=== PATIENT | female | born 1960 | race Caucasian/White ===

== ENCOUNTER 2016-09-17 01:51 | Emergency (ER) | payer BC ==
[~2016-09-17] VITALS: Ht 177.8 cm; Wt 153.9 kg
[~2016-09-17 01:51] MED LIST: BUME0.5T3 PO; BUPR-102 PO; LEVO200T PO; LOSA1TAB38 PO; OMEP20CA59 PO
[2016-09-17 01:54] VITALS: TEMP 36.7; O2SAT 94; Ht 177.8 cm; Wt 153.9 kg
[2016-09-17 02:57] LABS: BASO % 0.2 %; BASO ABS # 0.02 K/uL (0-0.2); COMPLETE YES; EOS % 4.4 %; HEMATOCRIT 37.8 % (37-47); IG% 0.7 %; LYMPH ABS # 2.84 K/uL (1.2-3.4); MEAN CELL VOLUME 89.6 fL (80-100); MEAN CORPUSCULAR HEMOGLOBIN 30.8 pg (25-34); MEAN CORPUSCULAR HGB CONC 34.4 g/dl (32-36); MEAN PLATELET VOLUME 9.6 fL (7.4-10.4); MONO % 8.3 %; NEUT % 55.4 %; PLATELET COUNT 302 K/uL (130-400); RED BLOOD COUNT 4.22 M/uL (4.2-5.4); WHITE BLOOD COUNT 9.17 K/uL (4.8-10.8)
[2016-09-17 03:08] VITALS: O2SAT 94
[2016-09-17 03:09] LABS: PROTHROMBIN TIME (PATIENT) 10.5 SECONDS (9.0-12.0)
[2016-09-17 03:19] LABS: ALT/SGPT 28 U/L (12-78); AST/SGOT 18 U/L (15-37); BLOOD UREA NITROGEN 10 mg/dl (7-18); BUN/CREATININE RATIO 12.5 (10-20); CARBON DIOXIDE 32 mmol/L (21-32); CHLORIDE 103 mmol/L (98-107); CREATININE 0.82 mg/dl (0.60-1.20); GLUCOSE 136 mg/dl (70-99); MAGNESIUM 1.8 mg/dl (1.8-2.4); POTASSIUM 3.7 mmol/L (3.5-5.1); SODIUM 141 mmol/L (136-145)
[2016-09-17 03:25] LABS: ALB/GLOB RATIO 0.8 (0.9-2); ALKALINE PHOSPHATASE 92 U/L (45-117); CKMB/CK RATIO 1.2 (0-3.0)
[2016-09-17] MEDS ORDERED: SODIUM CHLORIDE 0.9% 500ML 500 ML IV STA (03:26)
[2016-09-17] MEDS ORDERED: OPTIRAY 320 IV PRN (03:45)
[2016-09-17] MEDS ORDERED: LEVO25TA5 PO (03:46)
[2016-09-17] MEDS ORDERED: GLC/500 PO (03:47)
[2016-09-17] MEDS ORDERED: VALS1TAB33 PO (03:48)
[2016-09-17] MEDS ORDERED: ERGO500037 PO (03:49)
[2016-09-17 04:51] VITALS: PULSE 78
[2016-09-17] MEDS ORDERED: ALBUT/IPRATROP 3MG/0.5MG NEB 3 ML VIAL INH STA (05:11)
[2016-09-17] MEDS ORDERED: AZITHROMYCIN 250 MG TAB PO ONE (05:15)
[2016-09-17] MEDS ORDERED: DEXAMETHASONE SOD INJ 10 MG/ML VIAL IV ONE (05:15)
[2016-09-17] MEDS ORDERED: PRED50TA PO (05:26)
[2016-09-17] MEDS ORDERED: AZIT-57 PO (05:26)
[2016-09-17] MEDS ORDERED: ALBUTEROL HFA 8 GM INHALER INH STA (05:28)
--- NOTE | 2016-09-17 05:28 | EMERGENCY ROOM VISIT NOTE ---
History First contact with patient: 02:15 Chief Complaint: CHEST PAIN Stated Complaint: CHEST CONGESTION,PAIN INTO BACK Nursing Triage Summary: This chest pain woke me up. My ankles are very swollen. Upper abdomen feels solid/swollen History of Present Illness The patient is a 56 year old female who presents to the Emergency Department by private vehicle for evaluation of her chest congestion as well as back pain and tightness to the RIGHT-sided chest. She reports that she was awoken tonight with occasional pain to the right-sided chest. She reports the pain is worse with deep inspiration. She is been congested for the past 2 weeks. She's been nasally congested as well. Tonight, she reports that when the pain initially onset, she noticed pain to the chest along. She now reports pain radiating to the back. She reports a history of hypertension, hypothyroidism, GERD, and diabetes. She denies any LEFT-sided chest pain, palpitations, or hemoptysis. She rates her current discomfort as a 3/10. She is tried nothing over-the- counter for her symptoms. Patient denies any fevers, chills, nausea, vomiting, abdominal pain, hematochezia, melena, hematuria, or dysuria. She denies any recent long-distance travel. She denies a smoking history. No family history of blood clots or bleeding disorders. Review of Systems A complete 10-point Review of Systems was discussed with the patient, with pertinent positives and negatives listed in the History of Present Illness. All remaining Review of Systems questions can be considered negative unless otherwise specified. Past Medical/Surgical History Medical Problems: (1) Diabetes mellitus type 2 (2) DIAPHRAGMATIC HERNIA (3) GOITER NOS (4) HYPERTENSION NOS (5) HYPOTHYROIDISM NOS (6) OBESITY, NOS (7) UNSPECIFIED SLEEP APNEA Social History Smoking Status: Never Smoker Smokeless Tobacco Use: No Drug Use: none Marital Status: Housing Status: lives with family Current/Historical Medications Scheduled Azithromycin (Azithromycin), 1 TAB PO DAILY Ergocalciferol (Vitamin D 36189 Unit), 50,000 UNIT PO WK Levothyroxine Sodium (Synthroid), 200 MCG PO DAILY Levothyroxine Sodium (Levothyroxine Sodium), 25 MCG PO DAILY Metformin Hcl (Glucophage), 1,000 MG PO DAILY Omeprazole (Prilosec), 20 MG PO DAILY Prednisone (Prednisone), 50 MG PO DAILY Valsartan/Hctz (Valsartan/Hydrochlorothia), 1 TAB PO QPM Allergies Coded Allergies: Molds & Smuts (Verified Allergy, Unknown, ., 09/17/16) [place] (Verified Allergy, Unknown, ., 09/17/16) Shrimp (Verified Allergy, Unknown, ., 09/17/16) Sulfa Drugs (Unverified Allergy, Unknown, HIVES, 09/17/16) Tomato (Verified Allergy, Unknown, ., 09/17/16) Magnesium Sulfate (Unverified Adverse Reaction, Severe, BREATHING DIFFICULTY, HIVES, 09/17/16) Physical Exam Vital Signs Date Time Temp Pulse Resp B/P Pulse Ox O2 Delivery O2 Flow Rate FiO2 09/17/16 05:42 174/80 09/17/16 04:51 78 12 09/17/16 04:21 77 16 09/17/16 04:01 161/80 09/17/16 03:21 76 17 09/17/16 03:08 94 Room Air 09/17/16 02:51 84 10 09/17/16 02:21 83 20 09/17/16 02:18 82 09/17/16 02:17 170/84 09/17/16 02:12 Room Air 09/17/16 01:54 36.7 83 20 178/97 94 Room Air Pain Rating (0-10): 3 Physical Exam VITAL SIGNS - Vital signs and nursing notes were reviewed. GENERAL - 56-year-old female appearing her stated age who is in no acute distress. Communicates well with provider and answers questions appropriately. HEAD - NC/AT. EYES - PERRL with EOMI bilaterally. Sclera anicteric. Palpebral conjunctiva pink and moist with no injection noted. EARS - No deformities of external structures noted on gross examination bilaterally. No pain elicited with palpation of the tragus bilaterally. External auditory canals without discharge or otorrhea. Tympanic membranes pearly rodriguez without retraction or bulging. NOSE - Midline and without cyanosis. No epistaxis or purulent drainage noted. Septum midline without deviation or septal hematoma noted. MOUTH/OROPHARYNX - Without perioral cyanosis. Buccal mucosa pink and moist and without leukoplakia. Tongue midline with equal elevation of palate bilaterally. No tonsillar hypertrophy, erythema, or exudates noted. Good dentition noted. NECK - Neck with FROM. Supple to palpation. LUNGS - Chest wall symmetric without accessory muscle use, intercostals retractions, or central cyanosis. Normal vesicular breath sounds CTA B/L. No wheezes, rales, or rhonchi appreciated. CARDIAC - RRR with S1/S2. No murmur, rubs, or gallops appreciated. No reproducible tenderness to palpation appreciated over the anterior chest wall. ABDOMEN - Abdominal contour obese and without pulsations or visible masses. BS normoactive all four quadrants. No tenderness, palpable masses, hepatosplenomegaly, or ascites noted. EXTREMITIES - No clubbing or peripheral cyanosis. Bilateral pretibial edema present. +3/5 radial and dorsalis pedis pulses palpated throughout. +5/5 strength noted in UE/LE bilaterally. NEUROLOGIC - Cranial nerves II through XII grossly intact. Sensory intact to light touch throughout. PSYCH - A&Ox3 and cooperates fully with examiner. Pt is very pleasant and interacts well with examiner. Medical Decision & Procedures ER Provider Diagnostic Interpretation: X-ray of the chest was obtained and reviewed by myself. No focal areas of consolidation or acute cardiopulmonary processes appreciated per my interpretation. Radiologist's impression unavailable at the time of dictation. Radiological imaging and reports were reviewed by myself. Radiologist's Interpretation per [facility] as follows: CTA CHEST: Compared to 02/06/13. No evidence of pulmonary embolism or aortic dissection. Peribronchial thickening with possible mucous plugging more prominent in the lower lobes. Patchy groundglass densities with mosaic attenuation in the bilateral lungs, can be seen with air trapping or other etiologies. No pneumothorax or pleural effusion Fatty liver. Laboratory Results 09/17/16 02:30 Red Blood Count 4.22, Mean Corpuscular Volume 89.6, Mean Corpuscular Hemoglobin 30.8, Mean Corpuscular Hemoglobin Concent 34.4, Mean Platelet Volume 9.6, Neutrophils (%) (Auto) 55.4, Lymphocytes (%) (Auto) 31.0, Monocytes (%) (Auto) 8.3, Eosinophils (%) (Auto) 4.4, Basophils (%) (Auto) 0.2, Neutrophils # (Auto) 5.09, Lymphocytes # (Auto) 2.84, Monocytes # (Auto) 0.76, Eosinophils # (Auto) 0.40, Basophils # (Auto) 0.02 09/17/16 02:30 Test 09/17/16 02:30 09/17/16 02:56 White Blood Count 9.17 K/uL (4.8-10.8) Red Blood Count 4.22 M/uL (4.2-5.4) Hemoglobin 13.0 g/dL (12.0-16.0) Hematocrit 37.8 % (37-47) Mean Corpuscular Volume 89.6 fL (80-100) Mean Corpuscular Hemoglobin 30.8 pg (25-34) Mean Corpuscular Hemoglobin Concent 34.4 g/dl (32-36) Platelet Count 302 K/uL (130-400) Mean Platelet Volume 9.6 fL (7.4-10.4) Neutrophils (%) (Auto) 55.4 % Lymphocytes (%) (Auto) 31.0 % Monocytes (%) (Auto) 8.3 % Eosinophils (%) (Auto) 4.4 % Basophils (%) (Auto) 0.2 % Neutrophils # (Auto) 5.09 K/uL (1.4-6.5) Lymphocytes # (Auto) 2.84 K/uL (1.2-3.4) Monocytes # (Auto) 0.76 K/uL (0.11-0.59) Eosinophils # (Auto) 0.40 K/uL (0-0.5) Basophils # (Auto) 0.02 K/uL (0-0.2) RDW Standard Deviation 43.5 fL (36.4-46.3) RDW Coefficient of Variation 13.4 % (11.5-14.5) Immature Granulocyte % (Auto) 0.7 % Immature Granulocyte # (Auto) 0.06 K/uL (0.00-0.02) Prothrombin Time 10.5 SECONDS (9.0-12.0) Prothromb Time International Ratio 1.0 (0.9-1.1) Activated Partial Thromboplast Time 27.1 SECONDS (21.0-31.0) Partial Thromboplastin Ratio 1.0 Anion Gap 6.0 mmol/L (3-11) Est Creatinine Clear Calc Drug Dose 121.2 ml/min Estimated GFR () 91.4 Estimated GFR (Non- 78.9 BUN/Creatinine Ratio 12.5 (10-20) Calcium Level 9.0 mg/dl (8.5-10.1) Magnesium Level 1.8 mg/dl (1.8-2.4) Total Bilirubin 0.3 mg/dl (0.2-1) Aspartate Amino Transf (AST/SGOT) 18 U/L (15-37) Alanine Aminotransferase (ALT/SGPT) 28 U/L (12-78) Alkaline Phosphatase 92 U/L (45-117) Total Creatine Kinase 67 U/L (26-192) Creatine Kinase MB 0.8 ng/ml (0.5-3.6) Creatine Kinase MB Ratio 1.2 (0-3.0) Troponin I < 0.015 ng/ml (0-0.045) Total Protein 7.6 gm/dl (6.4-8.2) Albumin 3.3 gm/dl (3.4-5.0) Globulin 4.3 gm/dl (2.5-4.0) Albumin/Globulin Ratio 0.8 (0.9-2) Lipase 155 U/L (73-393) Bedside D-Dimer > 450 ng/mlFEU (0-450) Bedside Troponin I 0.000 ng/ml (0-0.045) Medications Administered Medications (Trade) Dose Ordered Sig/Shirley Route Start Time Stop Time Status Last Admin Dose Admin Sodium Chloride (Nss 500ml) 500 ml @ 999 mls/hr Q31M STAT IV 09/17/16 03:26 09/17/16 03:56 DC 09/17/16 03:26 999 MLS/HR Dexamethasone Sodium Phosphate (Decadron Inj) 10 mg NOW ONCE IV 09/17/16 05:15 09/17/16 05:16 DC 09/17/16 05:26 10 MG Albuterol/ Ipratropium (Duoneb) 3 ml NOW STAT INH 09/17/16 05:11 09/17/16 05:13 DC 09/17/16 05:26 3 ML Azithromycin (Zithromax Tab) 500 mg NOW ONCE PO 09/17/16 05:15 09/17/16 05:16 DC 09/17/16 05:26 500 MG Albuterol (Ventolin Hfa Inhaler) 2 puffs ONE STAT INH 09/17/16 05:28 09/17/16 05:29 DC 09/17/16 05:43 2 PUFFS Procedure Patient was placed on the panel monitor and monitored throughout the entire extent of their stay. In addition, the patient's pulse oximetry was monitored throughout the entire stay. Any abnormalities or aberrancies were addressed appropriately. ECG Indication: chest pain, SOB/dyspnea Rate (beats per minute): 85 Rhythm: normal sinus Findings: no acute ischemic change, no ectopy Change: no significant change (from 02/05/2013.) ED Course Patient was seen and evaluated by myself. Labs were drawn, saline lock in place. EKG and chest x-rays were obtained. Laboratory results demonstrate no acute leukocytosis, worrisome anemia, or bandemia. The patient has no significant electrolyte abnormalities. Cardiac enzymes are not elevated. Troponin was negative. D-dimer was found to be elevated. Laboratory results and imaging studies to this point were reviewed with the patient. She was hydrated with a 500 mL normal saline bolus and a CTA of the chest was ordered. Imaging results as above. Imaging results were reviewed the patient who acknowledges understanding. She was provided 10 mg Decadron intravenously. She was provided a breathing treatment as well as initial dose of azithromycin orally. The patient was instructed to follow-up with her primary care provider on Wednesday at the latest for recheck. She was educated on worrisome symptoms for return visit to the emergency department. Patient discharged home afebrile and in good condition. Medical Decision Given the patient's presentation and stated complaints, I did elect to perform the above-mentioned workup. The patient presents today with right-sided chest pain which appears pruritic in nature. She has no fever. Her symptoms are not left-sided were exertional. Her EKG is unremarkable. Labs demonstrate no acute findings. Cardiac enzymes are negative. EKG is unchanged. CTA demonstrates mucous plugging as well as some air trapping. Patient's symptoms are likely related to these findings. She was treated with albuterol treatment. She was provided an albuterol inhaler for home. She will be placed on prednisone as well as azithromycin. She'll follow-up with her primary care provider or return to the emergency department in the setting of any changing or worsening symptoms. Patient discharged home afebrile and in good condition. In the evaluation and treatment of this patient, the following differential diagnoses were considered: ND, ASC, Dysrhythmia, Angina, Mediastinitis, GERD, Esophagitis, PE, Pneumonia, Bronchitis, Costochondritis, Rib Fracture, Zoster. Impression Primary Impression: Pleuritic chest pain Additional Impression: Acute bronchitis Departure Information Dispostion Home / Self-Care Condition GOOD Prescriptions Azithromycin (Azithromycin) 250 Mg Tab 1 TAB PO DAILY for 4 Days, #4 TAB Prov: Pio Archuleta PA-C 09/17/16 Prednisone (Prednisone) 50 Mg Tab 50 MG PO DAILY for 4 Days, #4 TAB Prov: Pio Archuleta PA-C 09/17/16 Referrals Pro,Jose Castro M.D. (PCP) Patient Instructions Bronchitis Acute, [facility] Additional Instructions You have been seen in the emergency department today for your bronchitis and RIGHT-sided chest discomfort. You were prescribed Azithromycin to be taken as prescribed. This is an antibiotic. All antibiotics have the potential to cause diarrhea. Stop this medication and contact a medical provider if you were to develop any significant adverse side effects including: wheezing, shortness of breath, passing out, vomiting, or a diffuse rash. Always take antibiotics as directed and COMPLETE the ENTIRE course regardless of the improvement of your symptoms. Please use your albuterol inhaler 2 puffs every 4-6 hours for the next 3-4 days and then as needed for cough. You have been prescribed Prednisone 50 mg to be taken orally once a day for the next 4 days. This is an anti-inflammatory medicine to be used to help minimize your symptoms. You should take the COMPLETE course of the medication. For pain control, you can use the following [id number] medicines (if >12 yo): - Regular strength (325mg/tab) Tylenol (acetaminophen) 2 tabs every 4-6 hours as needed. Do not exceed 12 tablets in a 24 hour period. Avoid taking more than 4 grams (4000 mg) of Tylenol per day. This includes any other sources of acetaminophen you may take on a regular basis. - Regular strength (200 mg/tab) Advil (ibuprofen) 1-2 tabs every 4-6 hours as needed. Do not exceed a dose of 3200 mg per day. Please follow-up with your primary care provider on Wednesday at the latest. Return for any changing or worsening symptoms. Problem Qualifiers Additional Impression: Acute bronchitis Bronchitis organism: unspecified organism Qualified Codes: J20.9 - Acute bronchitis, unspecified
[2016-09-17 05:42] VITALS: BP 174/80
--- NOTE | 2016-09-17 08:31 | DIAGNOSTIC IMAGING REPORT ---
CT ANGIOGRAM OF THE CHEST CLINICAL HISTORY: Atypical chest pain. COMPARISON STUDY: Chest CT dated 02/06/2013. Chest x-ray dated 09/17/2016. TECHNIQUE: Following the IV administration of 113 cc of Optiray 320, CT angiogram of the chest was performed from the upper abdomen to the thoracic inlet utilizing the pulmonary embolus protocol. Images are reviewed in the axial, sagittal, and coronal planes. 3-D MIPS images are created and assessed. IV contrast was administered without complication. The examination is degraded by large body habitus, and by streak artifact from the body wall abutting the CT gantry. CT DOSE: 834.66 mGy.cm FINDINGS: Thyroid: Mildly enlarged and heterogeneous. Thoracic aorta: The thoracic aorta is normal in caliber and demonstrates bovine variant arch anatomy. No dissection is seen. Pulmonary vasculature: The pulmonary trunk is dilated, measuring 3.3 cm in transverse diameter. This suggests pulmonary artery hypertension. There are no central filling defects identified in main, lobar, or proximal segmental pulmonary branches to suggest pulmonary embolus. Evaluation of the peripheral vessels is degraded by suboptimal contrast opacification. Heart: The heart is enlarged and without pericardial effusion. Lungs and pleural spaces: Dependent atelectasis and air trapping are identified at the lung bases. No airspace consolidation is seen typical for pneumonia. There is no pleural effusion. The trachea and central airways are clear. Mediastinum: There is no mediastinal lymphadenopathy. Sindhu: Clear. Axillae: There is no axillary lymphadenopathy. Upper abdomen: The liver is steatotic. A small hiatal hernia is noted. Skeletal structures: The skeletal structures are osteopenic. Degenerative changes noted throughout the thoracic spine. No lytic or blastic bony lesions are seen. IMPRESSION: 1. There is no evidence of central pulmonary embolus in the main, lobar, or proximal segmental pulmonary arteries. 2. There is no airspace consolidation or pleural effusion. 3. Cardiomegaly with evidence of pulmonary artery hypertension. 4. Hepatic steatosis. 5. Additional findings as above. Electronically signed by: Levon Pinto M.D. 09/17/2016 8:29 AM Dictated Date/Time: 09/17/2016 8:23 AM
--- NOTE | 2016-09-17 08:35 | DIAGNOSTIC IMAGING REPORT ---
CHEST ONE VIEW PORTABLE HISTORY: Atypical chest pain. COMPARISON: Chest 02/05/2013. FINDINGS: Low lung volumes. The heart is mildly enlarged. Mild central pulmonary vascular congestion without overt edema. No pleural effusions. No pneumothorax. No focal lung consolidations to suggest pneumonia. IMPRESSION: Cardiomegaly with mild central pulmonary vascular congestion. Electronically signed by: Du Stewart M.D. 09/17/2016 8:33 AM Dictated Date/Time: 09/17/2016 8:33 AM
== END 2016-09-17 05:55 | disposition home or self-care (01) ==
LOC: C.EDB 01:52
DX: R07.89 Other chest pain (principal); J20.9 Acute bronchitis, unspecified; M54.9 Dorsalgia, unspecified; I10 Essential (primary) hypertension; E03.9 Hypothyroidism, unspecified; E11.9 Type 2 diabetes mellitus without complications; K21.9 Gastro-esophageal reflux disease without esophagitis; G47.30 Sleep apnea, unspecified; Z79.899 Other long term (current) drug therapy

== ENCOUNTER → 2017-02-10 | Outpatient (CLI) | payer BC ==
[~2017-02-10] MED LIST changes: -BUME0.5T3 PO; -BUPR-102 PO; +ERGO500037 PO; +GLC/500 PO; +LEVO25TA5 PO; -LOSA1TAB38 PO; +VALS1TAB33 PO; +ZTHM250 PO
--- NOTE | 2017-02-10 13:49 | MAMMOGRAPHY REPORT ---
BILATERAL DIGITAL SCREENING MAMMOGRAM TOMOSYNTHESIS WITH CAD: 02/10/2017 CLINICAL HISTORY: Routine screening. Patient has no complaints. TECHNIQUE: Breast tomosynthesis in addition to standard 2D mammography was performed. Current study was also evaluated with a Computer Aided Detection (CAD) system. COMPARISON: Comparison is made to exams dated: 02/06/2016 mammogram, 09/10/2014 mammogram, 03/03/2013 [facility] mogram, 03/02/2012 mammogram, 02/27/2011 mammogram, and 02/26/2010 mammogram - [facility]. BREAST COMPOSITION: The tissue of both breasts is almost entirely fatty. FINDINGS: No suspicious masses, calcifications, or areas of architectural distortion are noted in ei ther breast. There has been no significant interval change compared to prior exams. IMPRESSION: ACR BI-RADS CATEGORY 1: NEGATIVE There is no mammographic evidence of malignancy. A 1 year screening mammogram is recommended. The pa tient will receive written notification of the results. Approximately 10% of breast cancers are not detected with mammography. A negative mammographic report should not delay biopsy if a clinically suggestive mass is present. Elizabeth Storm M.D. /:02/10/2017 07:51:05 Show Host: Keyonna TURKR, M, [facility] letter sent: Normal 1/2 BI-RADS Code: ACR BI-RADS Category 1: Negative
== END | disposition home or self-care (01) ==
LOC: C.MAMM 07:24
PROVIDERS: ATTEND Internal Medicine
DX: Z12.31 Encounter for screening mammogram for malignant neoplasm of breast (principal)

== ENCOUNTER → 2017-03-01 | Outpatient (CLI) | payer BC ==
[2017-03-01 12:10] LABS: BASO % 0.2 %; BASO ABS # 0.02 K/uL (0-0.2); COMPLETE YES; EOS % 4.8 %; HEMATOCRIT 43.7 % (37-47); IG% 0.6 %; LYMPH % 30.1 %; LYMPH ABS # 2.73 K/uL (1.2-3.4); MEAN CELL VOLUME 94.6 fL (80-100); MEAN CORPUSCULAR HGB CONC 30.7 g/dl (32-36); MEAN PLATELET VOLUME 10.7 fL (7.4-10.4); MONO % 6.8 %; NEUT % 57.5 %; PLATELET COUNT 347 K/uL (130-400); RED BLOOD COUNT 4.62 M/uL (4.2-5.4); WHITE BLOOD COUNT 9.08 K/uL (4.8-10.8)
[2017-03-01 12:17] LABS: ALT/SGPT 24 U/L (12-78); BLOOD UREA NITROGEN 11 mg/dl (7-18); BUN/CREATININE RATIO 11.3 (10-20); CALCIUM 9.4 mg/dl (8.5-10.1); CARBON DIOXIDE 30 mmol/L (21-32); CHLORIDE 102 mmol/L (98-107); CHOLESTEROL 150 mg/dl (0-200); CREATININE 0.94 mg/dl (0.60-1.20); GLUCOSE 153 mg/dl (70-99); POTASSIUM 3.8 mmol/L (3.5-5.1); SODIUM 139 mmol/L (136-145); TRIGLYCERIDES 123 mg/dl (0-150); VERY LOW DENSITY LIPOPROT CALC 25 mg/dl
[2017-03-01 12:20] LABS: ALB/GLOB RATIO 0.8 (0.9-2); ALKALINE PHOSPHATASE 83 U/L (45-117); AST/SGOT 16 U/L (15-37); CHOLESTEROL/HDL RATIO 2.7; HDL CHOLESTEROL 56 mg/dl; LDL CHOLESTEROL CALCULATED 69 mg/dl
[2017-03-01 12:42] LABS: ESTIMATED AVERAGE GLUCOSE 166 mg/dl; HA1C FLAG Normal (Normal)
== END | disposition home or self-care (01) ==
LOC: C.LABPBG 07:54
PROVIDERS: ATTEND Physician Assistant
DX: Z00.00 Encounter for general adult medical examination without abnormal findings (principal); I10 Essential (primary) hypertension; R60.0 Localized edema

== ENCOUNTER 2017-05-04 16:05 | Emergency (ER) | payer BC ==
[~2017-05-04] VITALS: Ht 177.8 cm; Wt 151.0 kg
[~2017-05-04 16:05] MED LIST changes: +AZIT-57 PO; -ZTHM250 PO
[2017-05-04 16:07] VITALS: TEMP 37; Ht 177.8 cm; Wt 151.0 kg
--- NOTE | 2017-05-04 16:27 | EMERGENCY ROOM VISIT NOTE ---
History Report prepared by [place]: Marian Springer Under the Supervision of: Dr. Levon Gant M.D. First contact with patient: 16:10 Chief Complaint: FLANK PAIN Stated Complaint: EXTREME PAIN IN SIDE, BACK AND LOWER ABD History of Present Illness The patient is a 56 year old female who presents to the Emergency Room with complaints of persistent right flank pain starting today. Two nights ago, she noticed that she had some pain in her right lower side after urinating. Today, the pain is in her right flank, wrapping around her side to the front and into her groin. She currently rates her discomfort as a 10/10 in severity. She has been taking Tylenol to no significant relief. The pain does not worsen with eating. She has never had this pain before. She has been having urinary frequency. She is also having more frequent bowel movements that are looser than normal. She denies any fever, nausea, or vomiting. She denies any trauma or injury. She has a history of appendectomy and C section. She denies any history of kidney stone or kidney infection. She notes that she has had a sore throat for over 1 week--no sore throat today. She was on antibiotics for a tooth abscess recently. Source of History: patient Onset: today Position: other (right flank) Symptom Intensity: 10/10 Quality: other (pain) Timing: other (persistent) Associated Symptoms: + sorethroat, + diarrhea, + urinary symptoms, No fevers , No nausea, No vomiting Review of Systems See HPI for pertinent positives & negatives. A total of 10 systems reviewed and were otherwise negative. Past Medical & Surgical Medical Problems: (1) Diabetes mellitus type 2 (2) DIAPHRAGMATIC HERNIA (3) GOITER NOS (4) HYPERTENSION NOS (5) HYPOTHYROIDISM NOS (6) OBESITY, NOS (7) UNSPECIFIED SLEEP APNEA Family History No pertinent family history stated. Social History Smoking Status: Never Smoker Drug Use: none Marital Status: Housing Status: lives with family Current/Historical Medications Scheduled Azithromycin (Azithromycin), 1 TAB PO DAILY Cefdinir (Omnicef), 300 MG PO Q12H Ergocalciferol (Vitamin D 16954 Unit), 50,000 UNIT PO WK Levothyroxine Sodium (Synthroid), 200 MCG PO DAILY Levothyroxine Sodium (Levothyroxine Sodium), 25 MCG PO DAILY Metformin Hcl (Glucophage), 1,000 MG PO DAILY Omeprazole (Prilosec), 20 MG PO DAILY Valsartan/Hctz (Valsartan/Hydrochlorothia), 1 TAB PO QPM Allergies Coded Allergies: Molds & Smuts (Verified Allergy, Unknown, ., 09/17/16) [place] (Verified Allergy, Unknown, ., 09/17/16) Shrimp (Verified Allergy, Unknown, ., 09/17/16) Sulfa Drugs (Unverified Allergy, Unknown, HIVES, 09/17/16) Tomato (Verified Allergy, Unknown, ., 09/17/16) Magnesium Sulfate (Unverified Adverse Reaction, Severe, BREATHING DIFFICULTY, HIVES, 09/17/16) Physical Exam Vital Signs Date Time Temp Pulse Resp B/P (MAP) Pulse Ox O2 Delivery O2 Flow Rate FiO2 05/04/17 17:50 81 142/73 96 05/04/17 16:07 37.0 86 18 210/97 96 Room Air Physical Exam GENERAL: Patient is in no acute distress. HEENT: No acute trauma, normocephalic atraumatic, mucous membranes moist, no nasal congestion, no scleral icterus. No throat erythema. NECK: No stridor, no adenopathy, no meningismus, trachea is midline. LUNGS: Clear to auscultation bilaterally, no wheeze, no rhonchi, breath sounds equal. HEART: Without murmurs gallops or rubs, regular rate and rhythm. ABDOMEN: Soft, tender along the entire right side, bowel sounds positive, no hernias, no peritonitis. BACK: Mild right flank discomfort with percussion. EXTREMITIES: No cyanosis or edema, full range of motion of all the joints without pain or difficulty, no signs for acute trauma. NEUROLOGIC: Oriented x 3, no acute motor or sensory deficits, no focal weakness. SKIN: No rash, no jaundice, no diaphoresis. Medical Decision & Procedures ER Provider Diagnostic Interpretation: Radiology results as stated below per my review and radiologist interpretation: ABD/PELVIS WITHOUT FOR STONE CLINICAL HISTORY: 56 years-old Female presenting with EVALUATE FLANK PAIN/HEMATURIA. TECHNIQUE: Multidetector CT of the abdomen and pelvis was performed without the use of intravenous contrast. IV contrast: None. A dose lowering technique was used consistent with the principles of ALARA (as low as reasonably achievable). COMPARISON: 12/27/2011. CT DOSE (mGy.cm): The estimated cumulative dose is 1732.02 mGy.cm. FINDINGS: [employer] Manager topogram: Unremarkable. Lung bases: Mosaic attenuation at the lung bases could suggest small airways disease. Minimal dependent changes likely atelectasis. Normal heart size. No pericardial or pleural effusion. Liver: Normal morphology. Density consistent with hepatic steatosis. Biliary: No gross biliary ductal dilatation allowing for noncontrast technique. Gallbladder decompressed. Pancreas: Normal noncontrast appearance. Spleen: Normal noncontrast appearance. Adrenal glands: Normal noncontrast appearance. Kidneys and ureters: Normal noncontrast appearance of the kidneys. No nephrolithiasis. No hydronephrosis. Extrarenal pelvises noted bilaterally. Suggestion of mild urothelial thickening on the right with minimal right anterior perianal space fascial thickening or trace fluid. Ureters not dilated. Bladder: Incompletely evaluated secondary to underdistention. Pelvic organs: Uterus and ovaries normal. Bowel: Postsurgical changes of appendectomy. No bowel obstruction. Peritoneal cavity: No free fluid or intraperitoneal gas. Lymph nodes: No gross lymphadenopathy allowing for noncontrast technique. Vasculature: Normal noncontrast appearance. Abdominal wall: Normal. Musculoskeletal: Normal. IMPRESSION: 1. No evidence of nephrolithiasis or hydronephrosis. Suggestion of mild right urothelial thickening with mild adjacent inflammatory change. This could suggest upper tract infection. Evaluation for pyelonephritis limited without intravenous contrast. Correlate with urinalysis. Evaluation of the bladder is limited due to underdistention. 2. Hepatic steatosis. 3. Mosaic attenuation at the lung bases could suggest small airways disease. Electronically signed by: Antonio Rodriguez M.D. 05/04/2017 5:10 PM Dictated Date/Time: 05/04/2017 5:04 PM Laboratory Results 05/04/17 16:45 Red Blood Count 4.54, Mean Corpuscular Volume 92.5, Mean Corpuscular Hemoglobin 30.6, Mean Corpuscular Hemoglobin Concent 33.1, Mean Platelet Volume 10.0, Neutrophils (%) (Auto) 74.8, Lymphocytes (%) (Auto) 16.6, Monocytes (%) (Auto) 6.5, Eosinophils (%) (Auto) 1.4, Basophils (%) (Auto) 0.1, Neutrophils # (Auto) 10.44, Lymphocytes # (Auto) 2.32, Monocytes # (Auto) 0.90, Eosinophils # (Auto) 0.19, Basophils # (Auto) 0.01 05/04/17 16:45 Test 05/04/17 16:20 05/04/17 16:45 Urine Color ORANGE Urine Appearance CLEAR (CLEAR) Urine pH 7.0 (4.5-7.5) Urine Specific [place] 1.010 (1.000-1.030) Urine Protein 1+ (NEG) Urine Glucose (UA) NEG (NEG) Urine Ketones NEG (NEG) Urine Occult Blood 3+ (NEG) Urine Nitrite NEG (NEG) Urine Bilirubin NEG (NEG) Urine Urobilinogen NEG (NEG) Urine Leukocyte Esterase MODERATE (NEG) Urine WBC (Auto) >30 /hpf (0-5) Urine RBC (Auto) >30 /hpf (0-4) Urine Hyaline Casts (Auto) 1-5 /lpf (0-5) Urine Epithelial Cells (Auto) 0-5 /lpf (0-5) Urine Bacteria (Auto) NEG (NEG) White Blood Count 13.95 K/uL (4.8-10.8) Red Blood Count 4.54 M/uL (4.2-5.4) Hemoglobin 13.9 g/dL (12.0-16.0) Hematocrit 42.0 % (37-47) Mean Corpuscular Volume 92.5 fL (80-100) Mean Corpuscular Hemoglobin 30.6 pg (25-34) Mean Corpuscular Hemoglobin Concent 33.1 g/dl (32-36) Platelet Count 310 K/uL (130-400) Mean Platelet Volume 10.0 fL (7.4-10.4) Neutrophils (%) (Auto) 74.8 % Lymphocytes (%) (Auto) 16.6 % Monocytes (%) (Auto) 6.5 % Eosinophils (%) (Auto) 1.4 % Basophils (%) (Auto) 0.1 % Neutrophils # (Auto) 10.44 K/uL (1.4-6.5) Lymphocytes # (Auto) 2.32 K/uL (1.2-3.4) Monocytes # (Auto) 0.90 K/uL (0.11-0.59) Eosinophils # (Auto) 0.19 K/uL (0-0.5) Basophils # (Auto) 0.01 K/uL (0-0.2) RDW Standard Deviation 45.8 fL (36.4-46.3) RDW Coefficient of Variation 13.7 % (11.5-14.5) Immature Granulocyte % (Auto) 0.6 % Immature Granulocyte # (Auto) 0.09 K/uL (0.00-0.02) Anion Gap 6.0 mmol/L (3-11) Est Creatinine Clear Calc Drug Dose 98.3 ml/min Estimated GFR () 71.9 Estimated GFR (Non- 62.1 BUN/Creatinine Ratio 12.7 (10-20) Calcium Level 9.2 mg/dl (8.5-10.1) Total Bilirubin 0.3 mg/dl (0.2-1) Direct Bilirubin 0.1 mg/dl (0-0.2) Aspartate Amino Transf (AST/SGOT) 21 U/L (15-37) Alanine Aminotransferase (ALT/SGPT) 35 U/L (12-78) Alkaline Phosphatase 90 U/L (45-117) Total Protein 8.3 gm/dl (6.4-8.2) Albumin 3.6 gm/dl (3.4-5.0) Lipase 171 U/L (73-393) Laboratory results reviewed by me. Medications Administered Medications (Trade) Dose Ordered Sig/Shirley Route Start Time Stop Time Status Last Admin Dose Admin Ceftriaxone Sodium (Rocephin Inj) 1 gm NOW STAT IV 05/04/17 16:39 05/04/17 16:40 DC 05/04/17 17:04 1 GM Ketorolac Tromethamine (Toradol Inj) 30 mg NOW STAT IV 05/04/17 17:10 05/04/17 17:11 DC 05/04/17 17:16 30 MG ED Course 1610: The patient was evaluated in room A3. A complete history and physical exam was performed. 1639: Rocephin Inj 1 gm IV. 1710: Toradol Inj 30 mg IV. 1726: I reevaluated the patient. I discussed results and discharge instructions : She verbalized understanding and agreement. The patient is ready for discharge. Medical Decision Differential diagnoses considered include pyelonephritis, renal colic, UTI, diverticulitis, biliary colic, pancreatitis, musculoskeletal pain. There is a mild leukocytosis, this is consistent with infection. No concerning anemia. No significant electrolyte abnormality, kidney failure, hepatitis or pancreatitis. Urinalysis is suggestive of infection, urine culture is pending. Abdominal and pelvis CT suggests a possible kidney infection, no hydronephrosis or ureteral stone noted. The patient received IV Toradol, she received IV ceftriaxone. The patient appears to have pyelonephritis. She is stable for discharge. She is not toxic, she is not vomiting, she is not febrile. She will be discharged on Omnicef for 10 days. [id number] pain medications, hydration and rest were encouraged. If worsening or not improving, she should return. Impression Primary Impression: Pyelonephritis Additional Impression: Right flank pain Scribe Attestation The scribe's documentation has been prepared under my direction and personally reviewed by me in its entirety. I confirm that the note above accurately reflects all work, treatment, procedures, and medical decision making performed by me. Departure Information Dispostion Home / Self-Care Prescriptions Cefdinir (OMNICEF) 300 Mg Cap 300 MG PO Q12H for 10 Days, #20 CAP Prov: Levon Gant M.D. 05/04/17 Referrals Jose Camejo M.D. (PCP) Forms HOME CARE DOCUMENTATION FORM, IMPORTANT VISIT INFORMATION Patient Instructions My [facility] [place] [employer] Additional Instructions fluids motrin/tylenol for pain heat to the sore areas may help omnicef 2x per day for 10 days see leroy mccoy this week for a recheck return for worsening pain, vomiting, fever or if not improving Problem Qualifiers
[2017-05-04 16:34] LABS: URINE APPEARANCE CLEAR (CLEAR); URINE BILIRUBIN NEG (NEG); URINE COLOR ORANGE; URINE EPITHELIAL CELL AUTO 0-5 /lpf (0-5); URINE NITRITE NEG (NEG); UROBILINOGEN NEG (NEG); ZZUR CULT IF INDIC CLEAN CATCH YES
[2017-05-04 16:36] LABS: MANUAL MICROSCOPIC REQUIRED? NO; REVIEW REQ? NO
[2017-05-04] MEDS ORDERED: CEFTRIAXONE SOD INJ 1 GM ADDVIAL IV STA (16:39)
[2017-05-04 16:52] LABS: BASO % 0.1 %; BASO ABS # 0.01 K/uL (0-0.2); COMPLETE YES; EOS % 1.4 %; IG% 0.6 %; LYMPH % 16.6 %; LYMPH ABS # 2.32 K/uL (1.2-3.4); MEAN CELL VOLUME 92.5 fL (80-100); MEAN CORPUSCULAR HEMOGLOBIN 30.6 pg (25-34); MEAN CORPUSCULAR HGB CONC 33.1 g/dl (32-36); MONO % 6.5 %; NEUT % 74.8 %; PLATELET COUNT 310 K/uL (130-400); RED BLOOD COUNT 4.54 M/uL (4.2-5.4); WHITE BLOOD COUNT 13.95 K/uL (4.8-10.8)
[2017-05-04 17:09] LABS: BUN/CREATININE RATIO 12.7 (10-20); CALCIUM 9.2 mg/dl (8.5-10.1); POTASSIUM 3.7 mmol/L (3.5-5.1)
[2017-05-04] MEDS ORDERED: KETOROLAC TROMETHAMINE 30 MG/ML VIAL IV STA (17:10)
--- NOTE | 2017-05-04 17:12 | DIAGNOSTIC IMAGING REPORT ---
ABD/PELVIS WITHOUT FOR STONE CLINICAL HISTORY: 56 years-old Female presenting with EVALUATE FLANK PAIN/HEMATURIA. TECHNIQUE: Multidetector CT of the abdomen and pelvis was performed without the use of intravenous contrast. IV contrast: None. A dose lowering technique was used consistent with the principles of ALARA (as low as reasonably achievable). COMPARISON: 12/27/2011. CT DOSE (mGy.cm): The estimated cumulative dose is 1732.02 mGy.cm. FINDINGS: Pop[employer] Vendor topogram: Unremarkable. Lung bases: Mosaic attenuation at the lung bases could suggest small airways disease. Minimal dependent changes likely atelectasis. Normal heart size. No pericardial or pleural effusion. Liver: Normal morphology. Density consistent with hepatic steatosis. Biliary: No gross biliary ductal dilatation allowing for noncontrast technique. Gallbladder decompressed. Pancreas: Normal noncontrast appearance. Spleen: Normal noncontrast appearance. Adrenal glands: Normal noncontrast appearance. Kidneys and ureters: Normal noncontrast appearance of the kidneys. No nephrolithiasis. No hydronephrosis. Extrarenal pelvises noted bilaterally. Suggestion of mild urothelial thickening on the right with minimal right anterior perianal space fascial thickening or trace fluid. Ureters not dilated. Bladder: Incompletely evaluated secondary to underdistention. Pelvic organs: Uterus and ovaries normal. Bowel: Postsurgical changes of appendectomy. No bowel obstruction. Peritoneal cavity: No free fluid or intraperitoneal gas. Lymph nodes: No gross lymphadenopathy allowing for noncontrast technique. Vasculature: Normal noncontrast appearance. Abdominal wall: Normal. Musculoskeletal: Normal. IMPRESSION: 1. No evidence of nephrolithiasis or hydronephrosis. Suggestion of mild right urothelial thickening with mild adjacent inflammatory change. This could suggest upper tract infection. Evaluation for pyelonephritis limited without intravenous contrast. Correlate with urinalysis. Evaluation of the bladder is limited due to underdistention. 2. Hepatic steatosis. 3. Mosaic attenuation at the lung bases could suggest small airways disease. Electronically signed by: Antonio Rodriguez M.D. 05/04/2017 5:10 PM Dictated Date/Time: 05/04/2017 5:04 PM
[2017-05-04] MEDS ORDERED: CEFD300C2 PO (17:30)
[2017-05-04 17:50] VITALS: BP 142/73; PULSE 81; O2SAT 96
--- NOTE | 2017-05-06 11:42 | Pharmacy Progress Note ---
ED Pharmacist Culture FollowUp Date of Service: May 06, 2017. Patient was sent home with a prescription for cefdinir, which should cover the E. coli growing from the patient's urine culture.
== END 2017-05-04 17:50 | disposition home or self-care (01) ==
LOC: C.EDB 16:06 → C.EDA 17:50
DX: N12 Tubulo-interstitial nephritis, not specified as acute or chronic (principal); E11.9 Type 2 diabetes mellitus without complications; I10 Essential (primary) hypertension; E03.9 Hypothyroidism, unspecified; Z79.84 Long term (current) use of oral hypoglycemic drugs; Z90.89 Acquired absence of other organs

== ENCOUNTER → 2017-09-02 | Outpatient (CLI) | payer BC ==
[2017-09-02 13:20] LABS: HEMOGLOBIN A1C 6.8 % (4.5-5.6)
[2017-09-02 13:33] LABS: BLOOD UREA NITROGEN 11 mg/dl (7-18); CARBON DIOXIDE 29 mmol/L (21-32); CREATININE 0.87 mg/dl (0.60-1.20); GLUCOSE 141 mg/dl (70-99); SODIUM 135 mmol/L (136-145)
[2017-09-02 13:42] LABS: T3 FREE 3.13 pg/ml (2.30-4.20)
== END | disposition home or self-care (01) ==
LOC: C.LABPBG 08:06
PROVIDERS: ATTEND Internal Medicine
DX: E11.9 Type 2 diabetes mellitus without complications (principal); E03.9 Hypothyroidism, unspecified; E55.9 Vitamin D deficiency, unspecified; I10 Essential (primary) hypertension

== ENCOUNTER 2018-08-27 02:19 | Inpatient (IN) ==
[2018-08-27] MEDS ORDERED: LORazepam 1 MG/2 ML VIAL IV STA (02:37)
[2018-08-27] MEDS ORDERED: SODIUM CHLORIDE 0.9% 1000ML 1,000 ML IV SCH (02:45)
[2018-08-27 03:00] LABS: Basophils # (auto) 0.02 K/uL (0-0.2); Basophils % (auto) 0.2 %; Eosinophils # (auto) 0.29 K/uL (0-0.5); Eosinophils % (auto) 3.1 %; Hematocrit (blood only) 38.8 % (37-47); Hemoglobin 12.8 g/dL (12.0-16.0); Immature Granulocytes # (auto) 0.03 K/uL (0.00-0.02); Immature Granulocytes % (auto) 0.3 %; Lymphocytes # (auto) 3.45 K/uL (1.2-3.4); Lymphocytes % (auto) 37.5 %; Mean Corpuscular Volume 89.6 fL (80-100); Monocytes # (auto) 0.56 K/uL (0.11-0.59); Monocytes % (auto) 6.1 %; Neutrophils # (auto) 4.86 K/uL (1.4-6.5); Neutrophils % (auto) 52.8 %; Platelet Count 294 K/uL (130-400); RDW Coefficient of Variation 14.1 % (11.5-14.5); Red Blood Count 4.33 M/uL (4.2-5.4); White Blood Count 9.21 K/uL (4.8-10.8)
[2018-08-27 03:17] LABS: Alanine Aminotransferase 18 U/L (12-78); Albumin Level 3.2 gm/dl (3.4-5.0); Aspartate Aminotransferase 12 U/L (15-37); BUN Creatinine Ratio 15.7 (10-20); Blood Urea Nitrogen 14 mg/dl (7-18); Calcium 8.6 mg/dl (8.5-10.1); Carbon Dioxide 32 mmol/L (21-32); Chloride 106 mmol/L (98-107); Creatinine Clr Calc Pharmacy 103.1 ml/min; Est GFR (African American) 83.9; Est GFR (Non-African American) 72.4; Glucose 128 mg/dl (70-99); Potassium 3.6 mmol/L (3.5-5.1); Sodium 139 mmol/L (136-145)
--- NOTE | 2018-08-27 03:26 | Emergency Department Note ---
History of Present Illness General Chief complaint: Chest Pain Stated complaint: CHEST PAIN,BACK PAIN,SHOULDER PAIN History of Present Illness Maximum Pain Intensity: 6 This 58-year-old presents to the ER complaining of chest and epigastric pain Location: Right-sided chest and epigastric region Quality: Aching Severity: Moderate Duration: Past few days Timing: Started a few days ago Context: Pain got worse and patient came in Modifying factors: better with nothing; worse with palpation No history of similar symptoms in the past. Patient has blood pressure, cholesterol and diabetes. There is a family history of heart disease. No recent heart testing. Patient denies exertional chest pain, dyspnea, leg pain or swelling, recent travel, fevers, flulike illness, diaphoresis. Home Medications Home Medications Medication Instructions Recorded Confirmed Type Lactobacillus acidophilus 1 cap PO DAILY 08/27/18 08/27/18 History [Probiotic] biotin 10,000 mcg PO DAILY 08/27/18 08/27/18 History ergocalciferol (vitamin D2) 50,000 unit PO WK 08/27/18 08/27/18 History levothyroxine [Synthroid] 25 mcg PO DAILY 08/27/18 08/27/18 History levothyroxine [Synthroid] 200 mcg PO DAILY 08/27/18 08/27/18 History omeprazole 20 mg PO DAILY 08/27/18 08/27/18 History valsartan-hydrochlorothiazide 1 tab PO DAILY 08/27/18 08/27/18 History Allergies Allergy/AdvReac Type Severity Reaction Status Date / Time mold Allergy Unknown . Verified 08/27/18 03:32 orange Allergy Unknown . Verified 08/27/18 03:32 shrimp Allergy Unknown . Verified 08/27/18 03:32 Sulfa (Sulfonamide Allergy Unknown HIVES Unverified 08/27/18 03:32 Antibiotics) tomato Allergy Unknown . Verified 08/27/18 03:32 magnesium sulfate AdvReac Severe BREATHING Unverified 08/27/18 03:32 DIFFICULTY, HIVES Past Med/Surg History Medical History Diabetes Dyslipidemia High blood pressure Hypothyroidism Surgical History History of appendectomy Social History Feels Safe at Home: Yes Smoking Status: Never smoker Review of Systems All systems reviewed & are unremarkable except as noted in HPI & below Physical Exam Vital Signs Vital Signs - 24 hr 08/27/18 02:20 08/27/18 02:22 08/27/18 02:37 Temperature 36.6 C Temperature Source Oral Sepsis Recent Fever Within 48 Hours No Sepsis Action Taken by Nursing No Action Required Pulse Rate 81 Pulse Rate [Apical] Respiratory Rate 18 Respiratory Effort / Characteristics Non-Labored Spontaneous Non-Labored Spontaneous Respiratory Depth Normal Normal Blood Pressure 184/85 H Blood Pressure [Left Arm] Blood Pressure Mean 118 Blood Pressure Mean [Left Arm] Pulse Oximetry 96 96 Oxygen Delivery Method Room Air Room Air Room Air 08/27/18 03:33 08/27/18 05:27 Temperature Temperature Source Sepsis Recent Fever Within 48 Hours Sepsis Action Taken by Nursing Pulse Rate Pulse Rate [Apical] 77 Respiratory Rate 18 18 Respiratory Effort / Characteristics Respiratory Depth Normal Blood Pressure Blood Pressure [Left Arm] 148/79 H 149/85 H Blood Pressure Mean Blood Pressure Mean [Left Arm] 102 106 Pulse Oximetry 95 94 Oxygen Delivery Method Room Air VITALS: Vitals are noted on the nurse's note and reviewed by myself. Vital signs hypertensive. GENERAL: Pleasant female, in no acute distress, nondiaphoretic, well-developed well-nourished. SKIN: The skin was without rashes, erythema, edema, or bruising. There is no tenting of the skin. Capillary reflex less than 2 seconds. HEAD: Normocephalic atraumatic. EARS: External auditory canals clear, tympanic membranes pearly rodriguez without erythema or effusion bilaterally. EYES: Pupils equal round and reactive to light and accommodation. Conjunctivae without injection, sclerae without icterus. Extraocular movements intact. NOSE: Patent, turbinates without inflammation or discharge. MOUTH: Mucous membranes moist. Pharynx without erythema or exudate. Uvula midline. Airway patent. Tongue does not deviate. NECK: Supple without nuchal rigidity. No lymphadenopathy. No thyromegaly. Cervical spine is nontender. No JVD. HEART: Regular rate and rhythm without murmurs gallops or rubs. LUNGS: Clear to auscultation bilaterally without wheezes, rales or rhonchi. No retractions or accessory muscle use. ABDOMEN: Positive bowel sounds x 4. Normal tympanic percussion. Soft, tender to palpation right upper quadrant, without masses or organomegaly. Flores sign positive. No guarding or rebound tenderness. No CVA tenderness MUSCULOSKELETAL: No muscle atrophy, erythema, or edema noted. NEURO: Patient was alert and oriented to person place and time. Normal sensat ion to light and sharp touch. No focal neurological deficits. Course Administered Medications Discontinued Medications Aspirin (Aspirin) 324 mg PO NOW STA Stop: 08/27/18 05:16 Last Admin: 08/27/18 05:22 Dose: 324 mg Documented by: [id number] Lorazepam (Ativan) 1 mg in 2 mls @ 2 mls/min IV NOW STA Stop: 08/27/18 02:38 Last Admin: 08/27/18 03:02 Dose: 2 mls/min Documented by: [id number] Sodium Chloride (Nss 1000ml) 1,000 mls @ 999 mls/hr IV .Q1H1M [id number] Stop: 08/27/18 03:45 Last Infusion: 08/27/18 04:04 Dose: 0 mls/hr Documented by: [id number] Admin: 08/27/18 03:02 Dose: 999 mls/hr Documented by: [id number] Medical Decision Making Medical Records Attestation: I reviewed the patient's medical records. Home Medications Current Medication List: was personally reviewed by me Laboratory Data Attestation: I reviewed the patient's lab results. Result diagrams: 08/27/18 02:50 08/27/18 02:50 Lab Results 08/27/18 08/27/18 08/27/18 Range/Units 02:50 02:50 02:53 WBC 9.21 (4.8-10.8) K/uL RBC 4.33 (4.2-5.4) M/uL Hgb 12.8 (12.0-16.0) g/dL Hct 38.8 (37-47) % MCV 89.6 (80-100) fL MCH 29.6 (25-34) pg MCHC 33.0 (32-36) g/dL RDW Std Deviation 46.0 (36.4-46.3) fL RDW Coeff of Mitul 14.1 (11.5-14.5) % Plt Count 294 (130-400) K/uL MPV 10.0 (7.4-10.4) fL Immature Gran % (Auto) 0.3 % Neut % (Auto) 52.8 % Lymph % (Auto) 37.5 % [place] % (Auto) 6.1 % Eos % (Auto) 3.1 % Baso % (Auto) 0.2 % Immature Gran # (Auto) 0.03 H (0.00-0.02) K/uL Neut # (Auto) 4.86 (1.4-6.5) K/uL Lymph # (Auto) 3.45 H (1.2-3.4) K/uL [place] # (Auto) 0.56 (0.11-0.59) K/uL Eos # (Auto) 0.29 (0-0.5) K/uL Baso # (Auto) 0.02 (0-0.2) K/uL POC D-Dimer 431 (0-450) ng/mlFEU Sodium 139 (136-145) mmol/L Potassium 3.6 (3.5-5.1) mmol/L Chloride 106 (98-107) mmol/L Carbon Dioxide 32 (21-32) mmol/L Anion Gap 1.0 L (3-11) BUN 14 (7-18) mg/dl Creatinine 0.87 (0.6-1.2) mg/dl Est Cr Clr Drug Dosing 103.1 ml/min Est GFR ( Amer) 83.9 Est GFR (Non-Af Amer) 72.4 BUN/Creatinine Ratio 15.7 (10-20) Glucose 128 H (70-99) mg/dl Calcium 8.6 (8.5-10.1) mg/dl Total Bilirubin 0.2 (0.2-1) mg/dl AST 12 L (15-37) U/L ALT 18 (12-78) U/L Alkaline Phosphatase 106 (45-117) U/L POC Troponin I < 0.03 (0-0.045) ng/ml Troponin I < 0.015 (0-0.045) ng/ml Total Protein 7.6 (6.4-8.2) gm/dl Albumin 3.2 L (3.4-5.0) gm/dl Globulin 4.4 H (2.5-4.0) gm/dl Albumin/Globulin Ratio 0.7 L (0.9-2) Lipase 152 (73-393) U/L TSH 0.797 (0.300-4.500) uIu/ml MDM Narrative Prior records/ancillary studies reviewed. Triage Nursing notes reviewed. Additional history obtained from family. The patient's history was concerning for chest pain. Differential diagnosis: Etiologies such as cardiac ischemia, aortic dissection, pulmonary embolism, pneumonia, pneumothorax, musculoskeletal, infections, pericarditis, myocarditis, esophageal rupture, gastrointestinal, as well as others were entertained. Physical examination: As above. ER treatment provided: Ativan IV, aspirin On reassessment the patient felt better. Diagnostic interpretation by me: The electrocardiogram was negative for pathologic change. Normal sinus, low voltage, no acute ST-T wave changes, impression normal sinus rhythm with low voltage interpreted by myself I think arrhythmia is unlikely. EKG shows normal sinus rhythm with no interval abnormalities such as QT prolongation or WPW. There are no findings to suggest Brugada syndrome. Cardiac monitoring in the emergency department reveals no tachycardic or bradycardic dysrhythmia. Hypertrophic cardiomyopathy was consid ered but there are no clear historical elements pointing toward this. EKG is not suggestive. The QRS voltage is not extremely large and there are no suggestive Q waves. The labs revealed mild hyperglycemia without DKA Negative d-dimer and troponin Imaging studies: Chest x-ray with no acute consolidation, pneumothorax or free air per my interpretation Preliminary Findings Only See Final Report For Complete Findings US GALLBLADDER: COMPARISON: CT abdomen/pelvis 05/04/17 IMPRESSION: Gallbladder contraction mildly limits evaluation. No gallstones or clear sonographic evidence for acute cholecystitis allowing for underdistention. 3 mm gallbladder wall thickness is likely related to decompression. No right hydronephrosis. INCIDENTAL FINDINGS: Possible steatosis versus technical artifact. Radiologist: Rohan Ordonez M.D. HEART SCORE: Hx: high/mod/low suspicion: 1 ECG: ST depression/nonspecific changes/normal: 0 Age: Greater than 65/45-64/less than 45: 1 Risk factors: (Hypertension, hyperlipidemia, diabetes, coronary disease, tobacco use, cocaine use): 3 Troponin: Greater than 2 times normal limits/1-2 times normal limits/normal: 0 Total: 5 Consultation: A consultation was placed with the hospitalist, Dr. Lo. The case was discussed and diagnostics were reviewed. The patient was evaluated in the ER for further treatment. Exam and history seem consistent with CP w/ multiple risk factors. D-dimer is negative. First troponin was negative. Patient has multiple risk factors for heart disease. Medicine was consulted. They will evaluate the patient. Patient was given aspirin. She did feel better after the Ativan. Ultrasound was negative for acute cholecystitis.By the evaluation outlined above emergent etiologies such as aortic dissection, pulmonary embolism, pneumonia, pneumothorax, infections, pericarditis, myocarditis, gastrointestinal, as well as others were deemed relatively unlikely. The pt informed about the findings as listed above. All questions were answered and pleased with the treatment. Case reviewed with my attending The chart was completed utilizing [employer] Speech voice recognition software. Grammatical errors, random word insertions, pronoun errors, and incomplete sentences are an occassional consequence of this system due to software limitations, ambient noise, and hardware issues. Any formal questions or concer ns about the content, text, or information contained within the body of this dictation should be directly addressed to the physician administrative assistant coordinator for clarification. Impression & Plan Atypical chest pain Discharge Plan Visit Data Chief Complaint: Chest Pain Stated Complaint: CHEST PAIN,BACK PAIN,SHOULDER PAIN ED Provider: [facility] Midlevel Provider: Annmarie Carrera Discharge Problem: Atypical chest pain Patient Disposition: Being Evaluated by Hospitalist Condition: Good Forms Stand Alone Forms: Call Back Authorization, [facility] Prescriptions Prescriptions: No Action levothyroxine [Synthroid] 25 mcg tablet 25 mcg PO DAILY RF: 0 biotin 10,000 mcg Capsule 10,000 mcg PO DAILY RF: 0 omeprazole 20 mg Capsule,Delayed Release(Dr/Ec) 20 mg PO DAILY RF: 0 levothyroxine [Synthroid] 200 mcg tablet 200 mcg PO DAILY RF: 0 ergocalciferol (vitamin D2) 50,000 unit Capsule 50,000 unit PO WK RF: 0 valsartan-hydrochlorothiazide 160-25 mg Tablet 1 tab PO DAILY RF: 0 Probiotic 10 billion cell Capsule 1 cap PO DAILY RF: 0 Referrals Referrals: Pro,Jose Castro MD [Primary Care Provider] -
[2018-08-27 03:28] LABS: Albumin Globulin Ratio 0.7 (0.9-2); Alkaline Phosphatase 106 U/L (45-117); Bilirubin,Total 0.2 mg/dl (0.2-1); Globulin 4.4 gm/dl (2.5-4.0); Total Protein 7.6 gm/dl (6.4-8.2); Troponin I < 0.015 ng/ml (0-0.045)
[2018-08-27] MEDS ORDERED: ASPIRIN CHEW 324 MG PO STA (05:15)
--- NOTE | 2018-08-27 06:37 | History & Physical Report ---
Date of Service August 27, 2018 Assessment & Plan (1) Atypical chest pain: Right upper quadrant abdominal pain radiating to chest and shoulder around toward back-- Main differential is that of cardiac disease, gallbladder disease, esophagitis, gastritis, peptic ulcer disease. The patient will be admitted to telemetry for serial cardiac enzymes, serial EKG's, cardiac rhythm monitoring and a 2-D echocardiogram with Dopplers. Present on Admission?: Yes (2) Right upper quadrant abdominal pain: Order a HIDA scan to assess for gallbladder functionality. Right upper quadrant ultrasound was normal. Present on Admission?: Yes (3) Hypertension: Continue losartan/HCTZ with hold parameters Present on Admission?: Yes (4) Hypothyroidism (acquired): Continue levothyroxine sodium 25 mcg daily. Present on Admission?: Yes (5) GERD (gastroesophageal reflux disease): Continue omeprazole 20 mg p.o. daily Present on Admission?: Yes (6) Vitamin D deficiency: Hold weekly vitamin D2 Present on Admission?: Yes (7) Obesity (BMI 30-39.9): Obesity, hypertension, family history, relative physical inactivity high risk factors for peripheral vascular disease. Present on Admission?: Yes History of Present Illness Chief Complaint: The patient presents to the emergency department with initially intermittent right upper quadrant radiating to right chest pain, that began 2 days ago, the became more persistent last evening as she was going to bed. Primary Care Provider: Jose Camejo MD The patient is a 58-year-old female with a past medical history including hypertension, gastroesophageal reflux disease, hypothyroidism, family history of father with heart disease, who presents with right upper quadrant to right chest area pain, that she began 2 days ago on intermittent basis, which have become more persistent when she was at dinner last night and upon returning home. She does have some associated shortness of breath. The symptoms did not appear to change significantly with position physical activity or any other obvious association. The pain does occasionally radiate around toward her back. Allergies Allergy/AdvReac Type Severity Reaction Status Date / Time mold Allergy Unknown . Verified 08/27/18 03:32 orange Allergy Unknown . Verified 08/27/18 03:32 shrimp Allergy Unknown . Verified 08/27/18 03:32 Sulfa (Sulfonamide Allergy Unknown HIVES Unverified 08/27/18 03:32 Antibiotics) tomato Allergy Unknown . Verified 08/27/18 03:32 magnesium sulfate AdvReac Severe BREATHING Unverified 08/27/18 03:32 DIFFICULTY, HIVES Home Medications Home Medications Medication Instructions Recorded Confirmed Type Lactobacillus acidophilus 1 cap PO DAILY 08/27/18 08/27/18 History [Probiotic] biotin 10,000 mcg PO DAILY 08/27/18 08/27/18 History ergocalciferol (vitamin D2) 50,000 unit PO WK 08/27/18 08/27/18 History levothyroxine [Synthroid] 25 mcg PO DAILY 08/27/18 08/27/18 History levothyroxine [Synthroid] 200 mcg PO DAILY 08/27/18 08/27/18 History omeprazole 20 mg PO DAILY 08/27/18 08/27/18 History valsartan-hydrochlorothiazide 1 tab PO DAILY 08/27/18 08/27/18 History Past Med/Surg History Medical History Diabetes Dyslipidemia High blood pressure Hypothyroidism Surgical History History of appendectomy Social History Feels Safe at Home: Yes Smoking Status: Never smoker Review of Systems The patient denies palpitations, cough, lower extremity swelling, sore throat, fevers, chills, sweats, nausea, vomiting, diarrhea , constipation, pelvic pain, blood in urine or stool, dysuria, urinary frequency or urgency, lightheadedness, dizziness, headache, memory loss, loss of consciousness, rash, abnormal bruising or bleeding, imbalance, focal or generalized weakness, numbness or tingling in arms or legs, generalized arthralgias or myalgias, neck pain, or night sweats. The review of systems is otherwise negative other than for that already noted above, and at least 10 systems have been reviewed. Physical Exam Vital Signs (Past 24 Hours): Last Vital Signs Temp 36.6 C 08/27/18 02:22 Pulse 77 08/27/18 05:27 Resp 18 08/27/18 05:27 BP 149/85 H 08/27/18 05:27 Pulse Ox 94 08/27/18 05:27 Physical Exam: The patient is awake, alert and oriented 3, well developed and well nourished, normocephalic and atraumatic, lying in bed and in no acute distress. HEENT--PERRL, EOMI, mucous membranes and oropharynx normal. Neck--supple. No JVD. No bruits. Thyroid normal, trachea midline, no adenopathy. Heart--normal S1 and S2. No murmurs, rubs or gallops. Lungs--clear bilaterally, no respiratory distress, no accessory muscle use. Abdomen--normal bowel sounds and soft. Tender to deep palpation right upper quadrant and epigastric area. Nondistended. Extremities--no cyanosis or clubbing. No edema. There are good distal pulses b/l. Dermatologic--normal skin turgor, normal color, no abnormal lymph nodes, no rash. Neurologic--cranial nerves II through XII grossly intact. Rheumatologic--normal range of motion. Psychiatric--normal affect. Results & Data Laboratory Results Laboratory Results WBC 9.21 K/uL (4.8-10.8) 08/27/18 02:50 RBC 4.33 M/uL (4.2-5.4) 08/27/18 02:50 Hgb 12.8 g/dL (12.0-16.0) 08/27/18 02:50 Hct 38.8 % (37-47) 08/27/18 02:50 MCV 89.6 fL (80-100) 08/27/18 02:50 MCH 29.6 pg (25-34) 08/27/18 02:50 MCHC 33.0 g/dL (32-36) 08/27/18 02:50 RDW Std Deviation 46.0 fL (36.4-46.3) 08/27/18 02:50 RDW Coeff of Mitul 14.1 % (11.5-14.5) 08/27/18 02:50 Plt Count 294 K/uL (130-400) 08/27/18 02:50 MPV 10.0 fL (7.4-10.4) 08/27/18 02:50 Immature Gran % (Auto) 0.3 % 08/27/18 02:50 Neut % (Auto) 52.8 % 08/27/18 02:50 Lymph % (Auto) 37.5 % 08/27/18 02:50 [place] % (Auto) 6.1 % 08/27/18 02:50 Eos % (Auto) 3.1 % 08/27/18 02:50 Baso % (Auto) 0.2 % 08/27/18 02:50 Immature Gran # (Auto) 0.03 K/uL (0.00-0.02) H 08/27/18 02:50 Neut # (Auto) 4.86 K/uL (1.4-6.5) 08/27/18 02:50 Lymph # (Auto) 3.45 K/uL (1.2-3.4) H 08/27/18 02:50 [place] # (Auto) 0.56 K/uL (0.11-0.59) 08/27/18 02:50 Eos # (Auto) 0.29 K/uL (0-0.5) 08/27/18 02:50 Baso # (Auto) 0.02 K/uL (0-0.2) 08/27/18 02:50 POC D-Dimer 431 ng/mlFEU (0-450) 08/27/18 02:53 Sodium 139 mmol/L (136-145) 08/27/18 02:50 Potassium 3.6 mmol/L (3.5-5.1) 08/27/18 02:50 Chloride 106 mmol/L (98-107) 08/27/18 02:50 Carbon Dioxide 32 mmol/L (21-32) 08/27/18 02:50 Anion Gap 1.0 (3-11) L 08/27/18 02:50 BUN 14 mg/dl (7-18) 08/27/18 02:50 Creatinine 0.87 mg/dl (0.6-1.2) 08/27/18 02:50 Est Cr Clr Drug Dosing 103.1 ml/min 08/27/18 02:50 Est GFR ( Amer) 83.9 08/27/18 02:50 Est GFR (Non-Af Amer) 72.4 08/27/18 02:50 BUN/Creatinine Ratio 15.7 (10-20) 08/27/18 02:50 Glucose 128 mg/dl (70-99) H 08/27/18 02:50 Calcium 8.6 mg/dl (8.5-10.1) 08/27/18 02:50 Total Bilirubin 0.2 mg/dl (0.2-1) 08/27/18 02:50 AST 12 U/L (15-37) L 08/27/18 02:50 ALT 18 U/L (12-78) 08/27/18 02:50 Alkaline Phosphatase 106 U/L (45-117) 08/27/18 02:50 POC Troponin I < 0.03 ng/ml (0-0.045) 08/27/18 02:53 Troponin I < 0.015 ng/ml (0-0.045) 08/27/18 02:50 Total Protein 7.6 gm/dl (6.4-8.2) 08/27/18 02:50 Albumin 3.2 gm/dl (3.4-5.0) L 08/27/18 02:50 Globulin 4.4 gm/dl (2.5-4.0) H 08/27/18 02:50 Albumin/Globulin Ratio 0.7 (0.9-2) L 08/27/18 02:50 Lipase 152 U/L (73-393) 08/27/18 02:50 TSH 0.797 uIu/ml (0.300-4.500) 08/27/18 02:50 Code Status & VTE Plan Code Status Full code VTE Prophylaxis Plan VTE Prophylaxis will be ordered: Yes
--- NOTE | 2018-08-27 07:36 | Ultrasound Report ---
ABDOMINAL ULTRASOUND, RIGHT UPPER QUADRANT HISTORY: ruq pain. COMPARISON: Abdomen and pelvis CT 05/04/2017. FINDINGS: Pancreas: The pancreatic tail is obscured by overlying bowel gas. The remaining portions of the pancr eas are within normal limits. Liver: The liver is echogenic consistent with fatty change. The liver is mildly enlarged measuring 19 cm in length. Gallbladder: 3 mm gallbladder wall thickening is likely due to the decompression.. No gallstones. The gallbladder appears contracted. CBD: 3 mm. Right kidney: No hydronephrosis. IMPRESSION: 1. Hepatomegaly demonstrating fatty change. 2. No gallstones. No definite gallbladder wall thickening given the contracted appearance. Electronically signed by: Du Stewart M.D. 08/27/2018 7:35 AM
--- NOTE | 2018-08-27 07:47 | XRay Report ---
XR chest 1V portable HISTORY: Atypical Chest Pain COMPARISON: Chest 09/17/2016. FINDINGS: The lungs are clear. Cardiac silhouette is normal in size. No pleural effusions. No pneumot horax. IMPRESSION: No acute process. Electronically signed by: Du Stewart M.D. 08/27/2018 7:46 AM
[2018-08-27] MEDS ORDERED: ONDANSETRON INJ 2 MG/ML 2 ML VIAL IV PRN (07:58)
[2018-08-27] MEDS ORDERED: NITROGLYCERIN SL 0.4 MG/TAB TAB SL PRN (07:58)
[2018-08-27] MEDS ORDERED: PANTOprazole 40 MG TAB PO SCH (09:00)
[2018-08-27] MEDS ORDERED: LEVOTHYROXINE SODIUM 200 MCG TABLET PO SCH (09:00)
[2018-08-27] MEDS ORDERED: hydroCHLOROthiazide 25 MG TAB PO SCH (09:00)
[2018-08-27] MEDS ORDERED: VALSARTAN 80 MG TAB PO SCH (09:00)
[2018-08-27] MEDS ORDERED: LEVOTHYROXINE SODIUM 25 MCG TABLET PO SCH (09:00)
[2018-08-27] MEDS ORDERED: VALSARTAN HYDROCHLOROTHIAZIDE PO SCH (09:00)
[2018-08-27] MEDS ORDERED: PERFLUTREN LIPID MICROSPHERE (DEFINITY) IV ONE ×2 (10:39)
--- NOTE | 2018-08-27 15:30 | Discharge Summary ---
Date of Service August 27, 2018 Admission HPI Per Admitting Provider The patient is a 58-year-old female with a past medical history including hypertension, gastroesophageal reflux disease, hypothyroidism, family history of father with heart disease, who presents with right upper quadrant to right chest area pain, that she began 2 days ago on intermittent basis, which have become more persistent when she was at dinner last night and upon returning home. She does have some associated shortness of breath. The symptoms did not appear to change significantly with position physical activity or any other obvious association. The pain does occasionally radiate around toward her back. Principal Diagnosis RUQ pain Discharge Exam Constitutional WD/WN, vitals as above Eyes PERRL, conjunctivae normal, anicteric sclerae ENMT external ear and nose normal, oropharynx normal Respiratory normal respiratory effort, lungs clear to auscultation Cardiovascular RRR, no murmur, no edema Gastrointestinal (Abdomen) mild RUQ tenderness on deep palpation Skin no rashes, warm and dry Psychiatric A+Ox3, euthymic affect Discharge Data Allergies Allergy/AdvReac Type Severity Reaction Status Date / Time mold Allergy Unknown . Verified 08/27/18 03:32 orange Allergy Unknown . Verified 08/27/18 03:32 shrimp Allergy Unknown . Verified 08/27/18 03:32 Sulfa (Sulfonamide Allergy Unknown HIVES Unverified 08/27/18 03:32 Antibiotics) tomato Allergy Unknown . Verified 08/27/18 03:32 magnesium sulfate AdvReac Severe BREATHING Unverified 08/27/18 03:32 DIFFICULTY, HIVES Consultations 08/27/18 05:31 ED Decision to Admit Stat 08/27/18 07:58 Consult Case Management - Discharge Planning Routine Ordered Studies 08/27/18 02:37 US gallbladder Urgent Hospital Course (1) Right upper quadrant abdominal pain: 58 y/o F with PMH HTN, GERD, hypothyroid presented to [facility] 08/27 with right upper quadrant to right chest area pain that she began 2 days ago. Pain described as intermittent, became more aggravated when she was at dinner last night and upon returning home. Admitted to some associated SOB. Pain not worsened with position or exertion. Pt stated pain radiate up to R shoulder and around toward her back. In ER, CXR was normal. EKG normal. Trops neg. RUQ U/S showed hepatomegaly demonstrating fatty change; no gallstones, and no definite gallbladder wall thickening, but a contracted appearance. LFT's/bili WNL. The following was the medical management during pt's stay here. 1) RUQ abdominal pain- As above, RUQ US findings showed no acute GB process, rather chronic findings of a contracted GB. Further imaging with HIDA was ordered to assess for gallbladder functionality; however, imaging was not available until Wednesday. Upon discussion with pt, it was best decided that pt could have HIDA done as outpt testing. Pt was given trial of low fat diet for lunch, which she tolerated without issue. Pt encouraged to continue low fat diet upon discharge. 2) Atypical chest pain- Any cardiac etiology was thought to be unlikely given normal EKG findings, neg trops, and pt's HPI. Tele demonstrated no acute events, NSR. Stress testing was not warranted during this admission. Echo results were still pending at time of d/c. Pt has family hx of cardiac dx in Father, combined with obesity, hypertension, and relative physical inactivity make her higher risk for peripheral vascular disease, and should be worked up as outpt if not already done so. 3) HTN- pt's HTN managed with home losartan/HCTZ 4) Hypothyroidism- pt continued on home levothyroxine sodium 25 mcg 5) GERD - pt continued on omeprazole 20 mg p.o. DVT prophylaxis not given 2/2 short LOS and low risk. At time of d/c, pt had no other acute concerns or complaints. Total Time Total Time Spent Total Time Spent (In Minutes): >30 min Discharge Plan Discharge Items Patient Disposition: Home - Self-Care Reason For Visit: RUQ PAIN RADIATING TO SHOULDER Discharge Diagnosis: Right Upper Abdominal Pain likely secondary to gall bladder dysfunction Condition: Good Discharge Goals: Decrease discomfort and Improve disease control Activity: Per 'Additional Instructions' section Non-emergency contact: Primary Care Provider Call non-emergency contact if: your symptoms worsen and your pain is not controlled Follow-up/Referrals: ProJose MD [Primary Care Provider] - Diet: Low Fat Addtl Provider Instructions: You were admitted for concern over your chest pain and abdominal pain. Your chest pain was determined to not be of cardiac origin, as all your lab values and EKG findings were normal. Your abdominal pain was likely due to gall bladder etiology from chronic issues rather than any acute process, such as a gallstone or inflammation. Please follow the below instructions on discharge: -Please continue a low fat diet, as this will be friendly to your gallbladder -Further outpatient imaging called a HIDA test will be arranged as soon as Wednesday to further evaluate your gall bladder functionality. -If your symptoms return or worsen, then please come back. Prescriptions: Continued levothyroxine [Synthroid] 25 mcg tablet 25 mcg PO DAILY RF: 0 biotin 10,000 mcg Capsule 10,000 mcg PO DAILY RF: 0 omeprazole 20 mg Capsule,Delayed Release(Dr/Ec) 20 mg PO DAILY RF: 0 levothyroxine [Synthroid] 200 mcg tablet 200 mcg PO DAILY RF: 0 ergocalciferol (vitamin D2) 50,000 unit Capsule 50,000 unit PO WK RF: 0 valsartan-hydrochlorothiazide 160-25 mg Tablet 1 tab PO DAILY RF: 0 Probiotic 10 billion cell Capsule 1 cap PO DAILY RF: 0 Stand-Alone Forms: Call Back Authorization, [facility] Discharge Orders: Discharge Order (Routine); Ordered 08/27/18 Ordered By: Grant Luna Admission Data Admit Date/Time: 08/27/18 10:20 Attending Provider: Tawanda Kimball Admit Provider: Camron Prince Primary Care Provider: Jose Camejo Other Providers: Camron Prince Service: Telemetry Medical Other Interventions: Discharge Summary Assessment (RN) Last Done: 08/27/18 16:04 DC Date/Time DO NOT enter until pt leaves facility: 08/27/18 16:23 Supervising Physician Co-Signing Physician Notes I personally examined the patient and verified all anderson points of history and exam, discussed case, and agree with decision making with Dr Luna RUQ pain. actually felt better after eating but ate spaghetti. has been going on off and on for a little while now, just was worse so came for eval. R back hurting a lot - periscapular. vitals noted nad breathing unlabored. R sided Tspine paraspinals high tone/tender/decreased ROM - inhibitory pressure/direct myofascial - improved/pain improved/pt tolerated well RUQ pain - chronic/acalculous cholecystits > PUD (duodenal, since got better after eating) >>> other -stable for home (informally discussed case w surgery delivery professional who noted that given not-100%-clear gallbladder findings, would want HIDA before considering surgery, d/w pt that unfortunately HIDA could not be done for 2 days due to staffing/availability, but that if she eats low fat diet and were to return w worsening, nothign about current situation appears unsafe/unstable for outpt w/u, f/u) -- she agrees/expresses good understanding/wants to go home. low fat diet somatic dysfunction thoracic region - likely referred spasm from referred pain presumably from gallbladder. OMT as above with some relief of pain. Resident Activity Tracking Resident Involvement: Resident Care Provided Care Provided: Adult Hospital Medicine
[2018-08-27 15:35] VITALS: BP 146/81; TEMP 97.9; O2SAT 94
[2018-08-27 16:06] VITALS: PULSE 70
== END 2018-08-27 16:23 | disposition home or self-care (01) | DRG 445 ==
LOC: ED 02:19 → 2N 02:19 → SUATTDRO 06:07 → 2N 06:49

== ENCOUNTER 2022-11-27 12:52 | Observation (INO) ==
--- NOTE | 2022-11-27 13:41 | Emergency Department Note ---
Impression & Plan Atypical chest pain, HTN (hypertension) ED Provider Note Provider: Valeriy Koehler MD DATE OF SERVICE: 11/27/2022 CHIEF COMPLAINT: Chest and right neck discomfort HISTORY OF PRESENT ILLNESS: Patient is a 62-year-old female history of diabetes and obesity as well as hypertension presenting here today around 10 AM after walking across the room work-up significant pain in the mid to right chest with some radiation of the right neck. Pain has decreased but still feeling some discomfort and pressure as well as some pressure into the right neck. Reports some chronic neck pain but no other significant back pain or abdominal symptoms. Maybe little bit short of breath. Patient states that her last several weeks has had a little bit of discomfort and shortness of breath more with ambulation in her chest. Strong cardiac history in the family but no personal history reported. Not on aspirin daily. States he does have some reflux and did take a reflux medicine today but this feels different. No trauma or syncope reported. History of aneurysm reported in the head PAST MEDICAL HISTORY: As noted above MEDICATIONS: Reviewed home medications SOCIAL HISTORY: Non-smoker PHYSICAL EXAM: GENERAL: alert and oriented in no acute distress on stretcher Head: normocephalic and atraumatic EYES: No injection, discharge or icterus. NECK: Trachea midline. Supple, tenderness, or crepitus ENT: Mucous membranes pink and moist. LUNGS: Airway patent. No retractions. Breath sounds clear with good air entry bilaterally. HEART: Regular rate and rhythm. No chest wall tenderness ABDOMEN: Soft and non-tender, without guarding or rebound. SKIN: Acyanotic, warm, dry, without rashes EXTREMITIES: Without tenderness or deformity with 1+ edema of the lower extremities. NEUROLOGICAL: No focal deficits. No aphasia. No facial droop or slurred speech. . Ambulatory. EK bpm normal sinus rhythm. No PVC or PAC. No acute ST segment elevation or depression with a QTc of 396. CONTINUOUS CARDIAC MONITORING: was ordered and showed a heart rate of 70s-80s bpm in NSR Patient's laboratory studies and imaging reviewed. Differential includes Cardiac ischemia, aortic dissection, pulmonary embolism, pneumothorax, pneumonia, pericarditis, myocarditis, esophageal rupture, GERD, cholecystitis, pancreatitis, musculoskeletal, as well as other pathologies. IMPRESSION/MEDICAL DECISION MAKIN-year-old history of hypertension, obesity, diabetes presenting here with onset of some chest discomfort and pressure likely improved compared to earlier but still some discomfort into the right chest as well as some pressure sensation to the right neck. No neurological deficits. 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 No trauma or syncope reported. No signs of STEMI on EKG and no significant arrhythmia. Maybe some slight shortness of breath but not pleuritic in nature. No abdominal symptoms doubt acute intra-abdominal pathology. Given report of aneurysm as well as some pressure to the neck will some chest discomfort and significant hypertension CT of the chest as well as the neck to look for any vascular abnormality be obtained. Troponin sent. Given some aspirin and Pepcid to help with any GI component as well as antiplatelet agent in case it is more cardiac related. Heart score is elevated moderate risk category for the patient. No evidence of significant swelling of the lower extremities. Blood work without significant anemia leukocytosis. No significant electrolyte abnormality. No signs of hepatitis or pancreatitis. Normal troponin but just 3 hours after onset of symptoms. Negative COVID. CT of the chest and neck per report without evidence of significant airspace consol idation, PE, or aortic pathology. CT of the neck also reassuring without significant vascular abnormality or abscess noted beyond some stenosis of the right vertebral artery origin. Discussed with the patient her moderate risk heart score as well as family history and in shared decision making discussed further observation here. She wished for this and the hospitalist was contacted. DIAGNOSIS: chest pain, HTN DISPOSITION: Hospitalist will evaluate Patient was agreeable with this plan. Past Med/Surg History Medical History (Updated 11/27/22 @ 16:15 by ABHAY Melchor) Aneurysm of left internal carotid artery Borderline diabetes was on metformin, currently not on Brain aneurysm "very small and monitoring, MRI in 1 year"--angiogram 02/2019 @ [facility] [place], no neurologist Diabetes mellitus Dyslipidemia Fatty liver GERD (gastroesophageal reflux disease) Hiatal hernia History of anesthesia reaction difficulty waking History of colon polyps Hypertension Hypothyroidism Morbid obesity with BMI of 45.0-49.9, adult Nausea and vomiting after administration of anesthetic agent Vertigo Surgical History History of angiography angiogram done of brain History of appendectomy History of section History of colonoscopy History of dilatation and curettage History of esophagogastroduodenoscopy (EGD) History of tonsillectomy and adenoidectomy History of tooth extraction History of wisdom tooth extraction Family History Sister Nausea and vomiting after administration of anesthetic agent Family history of diabetes mellitus Social History Smoking Status: Never smoker Second Hand Exposure: No; Do You Dip or Chew Tobacco: No; Hx Alcohol Use: No Hx Substance Use: No Preferred Language: German Communication Ability: Effective 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 Beliefs That Will Affect Care: None Current Living Situation: Spouse Current Living Situation Comment: Lives with and daughter Feels Safe at Home: Yes Assistive Devices: Glasses Allergies Allergies Allergy/AdvReac Type Severity Reaction Status Date / Time magnesium sulfate Allergy Severe BREATHING Verified 04/07/19 09:37 DIFFICULTY, HIVES Sulfa (Sulfonamide Allergy Intermediate HIVES Verified 04/07/19 09:37 Antibiotics) cat dander Allergy Mild watery, Verified 04/07/19 09:37 itchy eyes mold Allergy Mild watery, Verified 04/07/19 09:37 itchy eyes tomato Allergy Mild hands/feet Verified 04/07/19 09:37 itch orange Allergy Unknown food Verified 04/07/19 09:37 sensitivity shrimp Allergy Unknown food Verified 04/07/19 09:37 sensitivity morphine AdvReac Mild disoriented Verified 04/07/19 09:37 Home Meds Home Medications Medication Instructions Recorded Confirmed levothyroxine 200 mcg tablet 200 mcg PO QAM 08/27/18 11/27/22 (Synthroid) lisinopril 40 mg tablet 40 mg PO QAM 04/04/19 11/27/22 ergocalciferol (vitamin D2) 1,250 1,250 mcg PO WK 11/27/22 11/27/22 mcg (50,000 unit) capsule (Vitamin D2) semaglutide 0.25 mg or 0.5 mg (2 0.25 mg subcut WK 11/27/22 11/27/22 mg/3 mL) subcutaneous pen injector (Ozempic) Previous Rx's Medication Instructions Recorded meclizine 25 mg tablet 25 mg PO TID PRN dizziness #14 tabs 02/03/19 Results & Data (ED) Vital Signs Vital Signs - 24 hr 11/27/22 12:56 11/27/22 13:12 11/27/22 13:18 Temperature 36.3 C L Temperature Source Temporal Artery Scan Pulse Rate 81 73 Pulse Rate [Apical] 72 Pulse Rate from SpO2 Sensor Respiratory Rate 16 18 Respiratory Effort / Characteristics Non-Labored Respiratory Depth Normal Respiratory Pattern Regular Blood Pressure 204/81 H Blood Pressure [Right Arm] 175/94 H Blood Pressure Mean 122 Blood Pressure Mean [Right Arm] 121 Pulse Oximetry 98 100 Oxygen Delivery Method Room Air Room Air Sepsis Recent Fever Within 48 Hours No Sepsis New/Unexplained Change in Mental Status No Sepsis Action Taken by Nursing No Action Required 11/27/22 13:54 11/27/22 14:02 11/27/22 13:13 Temperature Temperature Source Pulse Rate 75 Pulse Rate [Apical] 73 Pulse Rate from SpO2 Sensor 76 Respiratory Rate 18 16 Respiratory Effort / Characteristics Non-Labored Respiratory Depth Normal Respiratory Pattern Regular Blood Pressure Blood Pressure [Right Arm] 160/101 H Blood Pressure Mean Blood Pressure Mean [Right Arm] 120 Pulse Oximetry 96 96 96 Oxygen Delivery Method Room Air Room Air Sepsis Recent Fever Within 48 Hours Sepsis New/Unexplained Change in Mental Status Sepsis Action Taken by Nursing 11/27/22 13:20 11/27/22 13:30 11/27/22 13:40 Temperature Temperature Source Pulse Rate 75 70 77 Pulse Rate [Apical] Pulse Rate from SpO2 Sensor 73 70 76 Respiratory Rate 16 16 19 Respiratory Effort / Characteristics Respiratory Depth Respiratory Pattern Blood Pressure Blood Pressure [Right Arm] Blood Pressure Mean Blood Pressure Mean [Right Arm] Pulse Oximetry 98 96 96 Oxygen Delivery Method Sepsis Recent Fever Within 48 Hours Sepsis New/Unexplained Change in Mental Status Sepsis Action Taken by Nursing 11/27/22 13:49 11/27/22 13:49 11/27/22 13:50 Temperature Temperature Source Pulse Rate 75 73 Pulse Rate [Apical] Pulse Rate from SpO2 Sensor 76 74 Respiratory Rate 23 18 Respiratory Effort / Characteristics Respiratory Depth Respiratory Pattern Blood Pressure 138/111 H Blood Pressure [Right Arm] Blood Pressure Mean 114 Blood Pressure Mean [Right Arm] Pulse Oximetry 97 98 Oxygen Delivery Method Sepsis Recent Fever Within 48 Hours Sepsis New/Unexplained Change in Mental Status Sepsis Action Taken by Nursing 11/27/22 13:52 11/27/22 13:52 11/27/22 14:00 Temperature Temperature Source Pulse Rate 74 73 Pulse Rate [Apical] Pulse Rate from SpO2 Sensor 74 72 Respiratory Rate 16 18 Respiratory Effort / Characteristics Respiratory Depth Respiratory Pattern Blood Pressure 195/91 H Blood Pressure [Right Arm] Blood Pressure Mean 120 Blood Pressure Mean [Right Arm] Pulse Oximetry 98 94 Oxygen Delivery Method Sepsis Recent Fever Within 48 Hours Sepsis New/Unexplained Change in Mental Status Sepsis Action Taken by Nursing 11/27/22 14:02 11/27/22 14:02 11/27/22 14:10 Temperature Temperature Source Pulse Rate 73 74 Pulse Rate [Apical] Pulse Rate from SpO2 Sensor 73 74 Respiratory Rate 13 14 Respiratory Effort / Characteristics Respiratory Depth Respiratory Pattern Blood Pressure 160/101 H Blood Pressure [Right Arm] Blood Pressure Mean 113 Blood Pressure Mean [Right Arm] Pulse Oximetry 95 95 Oxygen Delivery Method Sepsis Recent Fever Within 48 Hours Sepsis New/Unexplained Change in Mental Status Sepsis Action Taken by Nursing 11/27/22 14:20 11/27/22 14:30 11/27/22 14:52 Temperature Temperature Source Pulse Rate 75 75 82 Pulse Rate [Apical] Pulse Rate from SpO2 Sensor 76 75 82 Respiratory Rate 20 20 Respiratory Effort / Characteristics Respiratory Depth Respiratory Pattern Blood Pressure Blood Pressure [Right Arm] Blood Pressure Mean Blood Pressure Mean [Right Arm] Pulse Oximetry 97 96 96 Oxygen Delivery Method Sepsis Recent Fever Within 48 Hours Sepsis New/Unexplained Change in Mental Status Sepsis Action Taken by Nursing 11/27/22 15:00 11/27/22 15:10 11/27/22 15:20 Temperature Temperature Source Pulse Rate 73 74 76 Pulse Rate [Apical] Pulse Rate from SpO2 Sensor 74 74 77 Respiratory Rate 18 19 19 Respiratory Effort / Characteristics Respiratory Depth Respiratory Pattern Blood Pressure Blood Pressure [Right Arm] Blood Pressure Mean Blood Pressure Mean [Right Arm] Pulse Oximetry 98 96 95 Oxygen Delivery Method Sepsis Recent Fever Within 48 Hours Sepsis New/Unexplained Change in Mental Status Sepsis Action Taken by Nursing 11/27/22 15:30 11/27/22 15:40 11/27/22 15:50 Temperature Temperature Source Pulse Rate 74 72 71 Pulse Rate [Apical] Pulse Rate from SpO2 Sensor 75 72 71 Respiratory Rate 16 15 Respiratory Effort / Characteristics Respiratory Depth Respiratory Pattern Blood Pressure Blood Pressure [Right Arm] Blood Pressure Mean Blood Pressure Mean [Right Arm] Pulse Oximetry 96 95 96 Oxygen Delivery Method Sepsis Recent Fever Within 48 Hours Sepsis New/Unexplained Change in Mental Status Sepsis Action Taken by Nursing 11/27/22 16:00 11/27/22 16:10 11/27/22 16:14 Temperature Temperature Source Pulse Rate 72 74 72 Pulse Rate [Apical] Pulse Rate from SpO2 Sensor 72 74 72 Respiratory Rate 16 21 19 Respiratory Effort / Characteristics Respiratory Depth Respiratory Pattern Blood Pressure Blood Pressure [Right Arm] Blood Pressure Mean Blood Pressure Mean [Right Arm] Pulse Oximetry 97 97 98 Oxygen Delivery Method Sepsis Recent Fever Within 48 Hours Sepsis New/Unexplained Change in Mental Status Sepsis Action Taken by Nursing 11/27/22 16:18 11/27/22 16:18 11/27/22 16:20 Temperature Temperature Source Pulse Rate 73 70 Pulse Rate [Apical] Pulse Rate from SpO2 Sensor 73 70 Respiratory Rate 14 16 Respiratory Effort / Characteristics Respiratory Depth Respiratory Pattern Blood Pressure 172/87 H Blood Pressure [Right Arm] Blood Pressure Mean 125 Blood Pressure Mean [Right Arm] Pulse Oximetry 97 98 Oxygen Delivery Method Sepsis Recent Fever Within 48 Hours Sepsis New/Unexplained Change in Mental Status Sepsis Action Taken by Nursing 11/27/22 16:30 11/27/22 16:40 11/27/22 16:50 Temperature Temperature Source Pulse Rate 72 76 79 Pulse Rate [Apical] Pulse Rate from SpO2 Sensor 73 75 79 Respiratory Rate 18 20 17 Respiratory Effort / Characteristics Respiratory Depth Respiratory Pattern Blood Pressure Blood Pressure [Right Arm] Blood Pressure Mean Blood Pressure Mean [Right Arm] Pulse Oximetry 97 98 97 Oxygen Delivery Method Sepsis Recent Fever Within 48 Hours Sepsis New/Unexplained Change in Mental Status Sepsis Action Taken by Nursing Laboratory Data 11/27/22 13:10 11/27/22 13:10 Lab Results 11/27/22 11/27/22 11/27/22 Range/Units 13:10 13:10 13:10 WBC 8.94 (4.8-10.8) K/ul RBC 4.55 (4.20-5.40) M/uL Hgb 14.1 (12.0-16.0) g/dl Hct 42.2 (37.0-47.0) % MCV 92.7 (80.0-100.0) fL MCH 31.0 (25.0-34.0) pg MCHC 33.4 (32.0-36.0) g/dL RDW Std Deviation 45.0 (36.4-46.3) fL RDW Coeff of Mitul 13.3 (11.5-14.5) % Plt Count 302 (130-400) K/uL MPV 10.3 (9.4-12.4) fL Immature Gran % (Auto) 0.8 % Neut % (Auto) 60.9 % Lymph % (Auto) 29.0 % [place] % (Auto) 7.5 % Eos % (Auto) 1.5 % Baso % (Auto) 0.3 % Neut # (Auto) 5.45 (1.40-6.50) K/uL Lymph # (Auto) 2.59 (1.2-3.4) K/uL [place] # (Auto) 0.67 H (0.11-0.59) K/uL Eos # (Auto) 0.13 (0-0.50) K/uL Baso # (Auto) 0.03 (0-0.2) K/uL Immature Gran # (Auto) 0.07 (0.01-0.20) K/uL PT 10.6 (9.0-12.0) Seconds INR 1.0 (0.9-1.1) APTT 26.4 (21.0-31.0) Seconds PTT Ratio 0.9 Sodium 137 (136-145) mmol/L Potassium 3.9 (3.5-5.1) mmol/L Chloride 101 (98-107) mmol/L Carbon Dioxide 29 (21-32) mmol/L Anion Gap 7 (3-11) BUN 12 (6-23) mg/dl Creatinine 0.91 (0.6-1.2) mg/dl Est Cr Clr Drug Dosing 97.5 ml/min Est GFR ( Amer) 77.3 ml/min Est GFR (Non-Af Amer) 66.7 ml/min BUN/Creatinine Ratio 13.2 (10-20) Glucose 132 H (70-99(Fasting)) mg/dl Calcium 10.2 (8.6-10.3) mg/dl Total Bilirubin 0.3 (0.2-1.0) mg/dl AST 17 (13-39) U/L ALT 18 (7-52) U/L Alkaline Phosphatase 89 (34-104) U/L Troponin I High Sens 3.1 (0-14) pg/ml Total Protein 8.4 H (6.0-8.3) gm/dl Albumin 4.1 (3.4-5.0) gm/dl Globulin 4.3 H (2.5-4.0) gm/dl Albumin/Globulin Ratio 1.0 (0.9-2) Lipase 39 (11-82) U/L SARS-CoV-2, RNA, NAAT (NEGATIVE) 11/27/22 11/27/22 Range/Units 14:00 16:09 WBC (4.8-10.8) K/ul RBC (4.20-5.40) M/uL Hgb (12.0-16.0) g/dl Hct (37.0-47.0) % MCV (80.0-100.0) fL MCH (25.0-34.0) pg MCHC (32.0-36.0) g/dL RDW Std Deviation (36.4-46.3) fL RDW Coeff of Mitul (11.5-14.5) % Plt Count (130-400) K/uL MPV (9.4-12.4) fL Immature Gran % (Auto) % Neut % (Auto) % Lymph % (Auto) % [place] % (Auto) % Eos % (Auto) % Baso % (Auto) % Neut # (Auto) (1.40-6.50) K/uL Lymph # (Auto) (1.2-3.4) K/uL [place] # (Auto) (0.11-0.59) K/uL Eos # (Auto) (0-0.50) K/uL Baso # (Auto) (0-0.2) K/uL Immature Gran # (Auto) (0.01-0.20) K/uL PT 10.7 (9.0-12.0) Seconds INR 1.0 (0.9-1.1) APTT (21.0-31.0) Seconds PTT Ratio Sodium (136-145) mmol/L Potassium (3.5-5.1) mmol/L Chloride (98-107) mmol/L Carbon Dioxide (21-32) mmol/L Anion Gap (3-11) BUN (6-23) mg/dl Creatinine (0.6-1.2) mg/dl Est Cr Clr Drug Dosing ml/min Est GFR ( Amer) ml/min Est GFR (Non-Af Amer) ml/min BUN/Creatinine Ratio (10-20) Glucose (70-99(Fasting)) mg/dl Calcium (8.6-10.3) mg/dl Total Bilirubin (0.2-1.0) mg/dl AST (13-39) U/L ALT (7-52) U/L Alkaline Phosphatase (34-104) U/L Troponin I High Sens (0-14) pg/ml Total Protein (6.0-8.3) gm/dl Albumin (3.4-5.0) gm/dl Globulin (2.5-4.0) gm/dl Albumin/Globulin Ratio (0.9-2) Lipase (11-82) U/L SARS-CoV-2, RNA, NAAT NEGATIVE (NEGATIVE) Administered Medications Discontinued Medications Aspirin (Aspirin 81 Mg Chew) 324 mg PO NOW STA Stop: 11/27/22 13:55 Last Admin: 11/27/22 14:01 Dose: 324 mg Documented By: NOE Famotidine (Pepcid 20mg Iv Push) 20 mg in 5 mls @ 2.5 mls/min IV NOW STA Stop: 11/27/22 13:55 Last Admin: 11/27/22 14:01 Dose: 2.5 mls/min Documented By: NOE Ioversol (Optiray 320 125ml) 120 ml IV ONCE ONE Stop: 11/27/22 14:56 Last Admin: 11/27/22 14:56 Dose: 120 ml Documented By: SERENA Imaging Data Radiologist's Impression: Chest CTA 11/27/22 13:46 CT angio chest dissec wo/w con CT DOSE: 2102.19 mGy.cm HISTORY: 62 years-old Female with CP, HTN, R neck pain. Chest pain with hypertension TECHNIQUE: Multiple CTA images of the chest were obtained with and without the intravenous administration of 120 ml Optiray. Coronal and sagittal MIPS were obtained from the axial data set and were submitted for review. All measurements were obtained according to NASCET criteria. A dose lowering technique was utilized adhering to the principles of ALARA. COMPARISON: CT neck of same day, CTA chest 09/17/2016 FINDINGS: CTA: The heart is mildly enlarged. Prominent epicardial fat pad. No thoracic aortic aneurysm or dissection. Patency of the imaged great vessels. Mild atherosclerosis without intramural hematoma identified. No mediastinal hematoma. No pulmonary emboli are identified. CT CHEST: Heterogeneous thyroid. No lymphadenopathy. No pneumothorax, pleural effusion, airspace consolidation, overt pulmonary edema, suspicious pulmonary nodule or mass. Central airways are patent. No acute process of the imaged upper abdomen. Hepatic steatosis. Unremarkable soft tissues. Degenerative changes of the spine and shoulders. No acute fracture identified. IMPRESSION: 1. Cardiomegaly without pulmonary emboli or acute aortic pathology. 2. No pleural effusion or airspace consolidation to suggest pneumonia. 3. Hepatic steatosis. ACT 112: Negative or not required by law. The above report was generated using voice recognition software. It may contain grammatical, syntax or spelling errors. Electronically signed by: Lukas Martinez M.D. 11/27/2022 3:07 PM Neck CTA 11/27/22 13:46 CT ANGIOGRAM OF THE NECK CLINICAL HISTORY: Right-sided neck pain. COMPARISON STUDY: CT angiogram of the neck dated 02/03/2019. TECHNIQUE: Following the IV administration of 120 of Optiray 320, CT angiogram of the neck was performed from the aortic arch to the skull base. Images are reviewed in the axial, sagittal, and coronal planes. 3-D MIPS images are created and assessed. IV contrast was administered without complication. All measurements were calculated based on NASCET criteria. A dose lowering technique was utilized adhering to the principles of ALARA. The examination is degraded large body habitus, and streak artifact from the shoulders. FINDINGS: Thoracic aorta: Visualized portions of the thoracic aorta are normal in caliber. The aortic arch demonstrates standard 3-vessel anatomy. Right carotid arterial system: The right common carotid artery is widely patent, as are the right internal and external carotid arteries. Left carotid arterial system: The left common carotid artery is widely patent, as are the left internal and external carotid arteries. Vertebral arteries: There is moderate to high-grade focal stenosis at the origin of the right vertebral artery seen on axial image #314. The vertebral arteries are otherwise patent bilaterally and are codominant. No dissection is seen. Subclavian arteries: Widely patent bilaterally. Intracranial vasculature: The visualized intracranial vessels at the skull base are patent. Jugular veins: Widely patent bilaterally. Brain parenchyma: The visualized brain parenchyma the skull base is within normal limits. Lung apices: Partially visualized upper lobe lung parenchyma appears clear. Soft tissues: The visualized pharyngeal soft tissues are normal in appearance noting angiographic phase technique. The oropharyngeal airway appears widely patent. The thyroid gland is enlarged an heterogeneous. The salivary glands are normal in appearance. No cervical lymphadenopathy is seen. Skeletal structures: The visualized calvarium at the skull base appears intact. The imaged cervical spine is maintained noting mild spondylosis. No lytic or blastic lesion is seen. Sinuses and mastoids: There is eifu-ye-jleczayo mucosal thickening within the maxillary antra. The remaining visualized paranasal sinuses are clear. There is trace right mastoid effusion. The left mastoid air cells are well pneumatized. IMPRESSION: 1. There is moderate to high-grade focal stenosis at the origin of the right vertebral artery. 2. Otherwise unremarkable CT angiogram of the neck. ACT 112: Negative or not required by law. Electronically signed by: Levon Pinto M.D. 11/27/2022 3:11 PM Discharge Plan Visit Data Chief Complaint: Chest Pain Stated Complaint: CHEST PAIN, JAW PAIN, DIZZINESS, WEAKNESS ED Provider: Valeriy Koehler Discharge Problem: Atypical chest pain, HTN (hypertension) Patient Disposition: Being Evaluated by Hospitalist Discharge Instructions Interventions: ED Discharge Assessment Last Done: 11/27/22 17:02 Forms Stand Alone Forms: [employer] Prescriptions Prescriptions: No Action meclizine 25 mg tablet 25 mg PO TID PRN (Reason: dizziness) Qty: 14 0RF levothyroxine [Synthroid] 200 mcg tablet 200 mcg PO QAM lisinopril 40 mg Tablet 40 mg PO QAM ergocalciferol (vitamin D2) [Vitamin D2] 1,250 mcg (50,000 unit) capsule 1,250 mcg PO WK Rx Instructions: MONDAYS Ozempic 0.25 mg or 0.5 mg (2 mg/3 mL) Pen Injector 0.25 mg SUBCUT WK Rx Instructions: WEDNESDAY Referrals Referrals: Roshni Mares MD [Primary Care Provider] -
[2022-11-27] MEDS ORDERED: FAMOTIDINE 20MG IV PUSH 20 MG/5 ML SYR IV STA (13:54)
[2022-11-27] MEDS ORDERED: ASPIRIN 81 MG CHEW PO STA (13:54)
[2022-11-27 14:04] LABS: Basophils # (auto) 0.03 K/uL (0-0.2); Basophils % (auto) 0.3 %; Eosinophils # (auto) 0.13 K/uL (0-0.50); Eosinophils % (auto) 1.5 %; Hematocrit (blood only) 42.2 % (37.0-47.0); Hemoglobin 14.1 g/dl (12.0-16.0); Immature Granulocytes # (auto) 0.07 K/uL (0.01-0.20); Immature Granulocytes % (auto) 0.8 %; Lymphocytes # (auto) 2.59 K/uL (1.2-3.4); Mean Corpuscular Hgb Conc 33.4 g/dL (32.0-36.0); Mean Corpuscular Volume 92.7 fL (80.0-100.0); Mean Platelet Volume 10.3 fL (9.4-12.4); Monocytes # (auto) 0.67 K/uL (0.11-0.59); Monocytes % (auto) 7.5 %; Neutrophils # (auto) 5.45 K/uL (1.40-6.50); Neutrophils % (auto) 60.9 %; Platelet Count 302 K/uL (130-400); RDW Coefficient of Variation 13.3 % (11.5-14.5); Red Blood Count 4.55 M/uL (4.20-5.40); White Blood Count 8.94 K/ul (4.8-10.8)
[2022-11-27 14:19] LABS: Albumin Level 4.1 gm/dl (3.4-5.0); BUN Creatinine Ratio 13.2 (10-20); Bilirubin,Total 0.3 mg/dl (0.2-1.0); Calcium 10.2 mg/dl (8.6-10.3); Creatinine Clr Calc Pharmacy 97.5 ml/min; Est GFR (African American) 77.3 ml/min; Est GFR (Non-African American) 66.7 ml/min; Globulin 4.3 gm/dl (2.5-4.0); Potassium 3.9 mmol/L (3.5-5.1); Total Protein 8.4 gm/dl (6.0-8.3)
[2022-11-27 14:22] LABS: Troponin I High Sensitivity 3.1 pg/ml (0-14)
[2022-11-27 14:26] LABS: Partial Thromboplastin Ratio 0.9; Partial Thromboplastin Time 26.4 Seconds (21.0-31.0); Prothrombin Time 10.6 Seconds (9.0-12.0)
[2022-11-27] MEDS ORDERED: OPTIRAY 320 125ml IV ONE (14:55)
--- NOTE | 2022-11-27 15:10 | CT Scan Report ---
CT angio chest dissec wo/w con CT DOSE: 2102.19 mGy.cm HISTORY: 62 years-old Female with CP, HTN, R neck pain. Chest pain with hypertension TECHNIQUE: Multiple CTA images of the chest were obtained with and without the intravenous administra tion of 120 ml Optiray. Coronal and sagittal MIPS were obtained from the axial data set and were sub mitted for review. All measurements were obtained according to NASCET criteria. A dose lowering tech nique was utilized adhering to the principles of ALARA. COMPARISON: CT neck of same day, CTA chest 09/17/2016 FINDINGS: CTA: The heart is mildly enlarged. Prominent epicardial fat pad. No thoracic aortic aneurysm or dissection . Patency of the imaged great vessels. Mild atherosclerosis without intramural hematoma identified. N o mediastinal hematoma. No pulmonary emboli are identified. CT CHEST: Heterogeneous thyroid. No lymphadenopathy. No pneumothorax, pleural effusion, airspace consolidation, overt pulmonary edema, suspicious pulmonary nodule or mass. Central airways are patent. No acute pro cess of the imaged upper abdomen. Hepatic steatosis. Unremarkable soft tissues. Degenerative changes of the spine and shoulders. No acute fracture identified. IMPRESSION: 1. Cardiomegaly without pulmonary emboli or acute aortic pathology. 2. No pleural effusion or airspace consolidation to suggest pneumonia. 3. Hepatic steatosis. ACT 112: Negative or not required by law. The above report was generated using voice recognition software. It may contain grammatical, syntax o r spelling errors. Electronically signed by: Luksa Martinez M.D. 11/27/2022 3:07 PM
--- NOTE | 2022-11-27 15:14 | CT Scan Report ---
CT ANGIOGRAM OF THE NECK CLINICAL HISTORY: Right-sided neck pain. COMPARISON STUDY: CT angiogram of the neck dated 02/03/2019. TECHNIQUE: Following the IV administration of 120 of Optiray 320, CT angiogram of the neck was perfor med from the aortic arch to the skull base. Images are reviewed in the axial, sagittal, and coronal p lanes. 3-D MIPS images are created and assessed. IV contrast was administered without complication. A ll measurements were calculated based on NASCET criteria. A dose lowering technique was utilized adh ering to the principles of ALARA. The examination is degraded large body habitus, and streak artifact from the shoulders. FINDINGS: Thoracic aorta: Visualized portions of the thoracic aorta are normal in caliber. The aortic arch demo nstrates standard 3-vessel anatomy. Right carotid arterial system: The right common carotid artery is widely patent, as are the right int ernal and external carotid arteries. Left carotid arterial system: The left common carotid artery is widely patent, as are the left internship coordinator al and external carotid arteries. Vertebral arteries: There is moderate to high-grade focal stenosis at the origin of the right vertebr al artery seen on axial image #314. The vertebral arteries are otherwise patent bilaterally and are c odominant. No dissection is seen. Subclavian arteries: Widely patent bilaterally. Intracranial vasculature: The visualized intracranial vessels at the skull base are patent. Jugular veins: Widely patent bilaterally. Brain parenchyma: The visualized brain parenchyma the skull base is within normal limits. Lung apices: Partially visualized upper lobe lung parenchyma appears clear. Soft tissues: The visualized pharyngeal soft tissues are normal in appearance noting angiographic pha se technique. The oropharyngeal airway appears widely patent. The thyroid gland is enlarged an hetero geneous. The salivary glands are normal in appearance. No cervical lymphadenopathy is seen. Skeletal structures: The visualized calvarium at the skull base appears intact. The imaged cervical s pine is maintained noting mild spondylosis. No lytic or blastic lesion is seen. Sinuses and mastoids: There is cltl-um-cqcmwhpn mucosal thickening within the maxillary antra. The re maining visualized paranasal sinuses are clear. There is trace right mastoid effusion. The left masto id air cells are well pneumatized. IMPRESSION: 1. There is moderate to high-grade focal stenosis at the origin of the right vertebral artery. 2. Otherwise unremarkable CT angiogram of the neck. ACT 112: Negative or not required by law. Electronically signed by: Levon Pinto M.D. 11/27/2022 3:11 PM
--- NOTE | 2022-11-27 15:44 | Electrocardiogram Report ---
Test Reason : Blood Pressure : / mmHG Vent. Rate : 079 BPM Atrial Rate : 079 BPM P-R Int : 172 ms QRS Dur : 066 ms QT Int : 346 ms P-R-T Axes : 032 016 051 degrees QTc Int : 396 ms Normal sinus rhythm Normal ECG When compared with ECG of 03-FEB-2019 20:56, No significant change was found Confirmed by Jose Montana ([id number]) on 11/27/2022 3:43:45 PM Referred By: REFERRED SELF Confirmed By:Jose Montana
[2022-11-27] MEDS ORDERED: POLYETHYLENE (MIRALAX) 17 GM PACK PO PRN (15:51)
[2022-11-27] MEDS ORDERED: MAGNESIUM HYDROXIDE SUSP 30 ML UDC PO PRN (15:51)
[2022-11-27] MEDS ORDERED: ACETAMINOPHEN 325 MG TAB PO PRN (15:51)
--- NOTE | 2022-11-27 16:00 | History & Physical Report ---
Date of Service November 27, 2022 Assessment & Plan (1) Atypical chest pain: (2) HTN (hypertension): (3) Aneurysm of left internal carotid artery: (4) Dyslipidemia: (5) Diabetes mellitus: (6) Obesity (BMI 30-39.9): (7) Hypothyroidism (acquired): (8) GERD (gastroesophageal reflux disease): Plan 62-year-old presents with atypical exertional chest pain. Chest CTA negative for PE. Head neck CTA moderate high-grade stenosis right vertebral artery. Do not suspect ACS; however, she is a high cardiac risk with morbid obesity and family cardiac history, uncontrolled HLD and is a Diabetic. Initial Trop negative; will trend for chest pain rule out; obtain ECHO, and lipid panel. 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 Jensen under neurosurgery measurin x 3 mm Dyslipidemia: 06/2022: Lipid panel; triglycerides 117, LDL 91 Repeat lipid panel while inpatient Prescribed Rosuvastatin; noncompliant. Discussed heart attack and stroke risk factors with patient and Diabetes mellitus: Obesity: BMI 48 [id number]-[id number] Takes Ozempic; hold while inpatient FSBS ACHS SSI while inpatient 08/27 A1c 6.8; recheck while here Hypothyroidism: Takes levothyroxine; continue GERD: Has a prescription for Omeprazole but does not want to fill it Takes TUMS intermittently Pepcid given in ED; some relief Disposition: PCP: Dr. Mares CODE STATUS: Full code VTE prophylaxis: Lovenox SQ I spent a total of 88 minutes coordinating, documenting, and providing care for this patient excluding time spent in the performance of separately billed services. All of the aforementioned completed while collaborating with the assigned attending physician for a full treatment plan. Please see their addendum for further details. History of Present Illness Chief Complaint: chest pain Primary Care Provider: Roshni Mares MD Ms. Roman is a 62 year old female that presents to the [facility] with exertional chest pain that has been persistent and worsened today while she was at work. Patient went to the bathroom at 1030 and came back with right sided chest pain with radiation to her right shoulder. No shortness of breath with event; but dizziness. Currently, patient with 2/10 right sided chest pain. Has seen chiropractor recently for right shoulder pain but no formal work up. Received Pepcid in ED with some relief. Patient has significant reported anxiety related to medications. She was a statin and has stopped taking it on her own. She does not take any anticoagulants or antiplatelet medications. Pt at bedside and no noted slurred speech or aphagia. Discussed heart attack and stroke risk factors with patient and . Denies syncope or near syncope. No LOC. Patient has family cardiac history including father dying from AMI at 64 years old. Pt denies tobacco use, alcohol use, or recreational drug use. Lab work up CBC and BMP unremarkable. Initial Troponin 3.1; will trend Q6 x3. Baseline creatinine 0.9-1.0. Chest CTA cardiomegaly without PE; no pleural effusions with hepatic steatosis. Most Recent ECHO 12/2021: Normal LV size with mild concentric LVH. Normal LV function without regional wall motion abnormality, EF 61%, grade 1 diastolic dysfunction without significant valvular pathology. Patient has been followed at [facility] for cerebral aneurysm. Additional PMH includes: NIDDM2, HTN, HLD, hypothyroidism, and morbid obesity. 09/2022: Head MRA without contrast Findings raise concern for mild interval enlargement of the saccular aneurysm in the left paraclinoid/paraophthalmic ICA. Aneurysm repair planned for December 24, 2022 at [facility]. MRI study and indeed there is some degree of concern that the aneurysm has grown some. I don't think this is a cause for concern by I do think we should repeat the angiogram to get the best pictures of the aneurysm and compare it to the previous angiogram we did back in 2019.The patient had a repeat MRA completed on 09/26/2022 showing a slight interval increase in size of the aneurysms. 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 Patient will be admitted for further evaluation and management. Please see A/P for further details. Allergies Allergy/AdvReac Type Severity Reaction Status Date / Time magnesium sulfate Allergy Severe BREATHING Verified 04/07/19 09:37 DIFFICULTY, HIVES Sulfa (Sulfonamide Allergy Intermediate HIVES Verified 04/07/19 09:37 Antibiotics) cat dander Allergy Mild watery, Verified 04/07/19 09:37 itchy eyes mold Allergy Mild watery, Verified 04/07/19 09:37 itchy eyes tomato Allergy Mild hands/feet Verified 04/07/19 09:37 itch orange Allergy Unknown food Verified 04/07/19 09:37 sensitivity shrimp Allergy Unknown food Verified 04/07/19 09:37 sensitivity morphine AdvReac Mild disoriented Verified 04/07/19 09:37 Home Medications Medication Instructions Recorded Confirmed Type levothyroxine 200 mcg tablet 200 mcg PO QAM 08/27/18 11/27/22 History (Synthroid) meclizine 25 mg tablet 25 mg PO TID PRN dizziness #14 tabs 02/03/19 11/27/22 Rx lisinopril 40 mg tablet 40 mg PO QAM 04/04/19 11/27/22 History ergocalciferol (vitamin D2) 1,250 1,250 mcg PO WK 11/27/22 11/27/22 History mcg (50,000 unit) capsule (Vitamin D2) semaglutide 0.25 mg or 0.5 mg (2 0.25 mg subcut WK 11/27/22 11/27/22 History mg/3 mL) subcutaneous pen injector (Ozempic) Past Med/Surg History Medical History (Updated 11/27/22 @ 16:15 by ABHAY Melchor) Aneurysm of left internal carotid artery Borderline diabetes was on metformin, currently not on Brain aneurysm "very small and monitoring, MRI in 1 year"--angiogram 02/2019 @ [facility], no neurologist Diabetes mellitus Dyslipidemia Fatty liver GERD (gastroesophageal reflux disease) Hiatal hernia History of anesthesia reaction difficulty waking History of colon polyps Hypertension Hypothyroidism Morbid obesity with BMI of 45.0-49.9, adult Nausea and vomiting after administration of anesthetic agent Vertigo Surgical History History of angiography angiogram done of brain History of appendectomy History of section History of colonoscopy History of dilatation and curettage History of esophagogastroduodenoscopy (EGD) History of tonsillectomy and adenoidectomy History of tooth extraction History of wisdom tooth extraction Family History Sister Nausea and vomiting after administration of anesthetic agent Family history of diabetes mellitus Social History Smoking Status: Never smoker Second Hand Exposure: No; Do You Dip or Chew Tobacco: No; Tobacco Cessation Education Requested by Patient: No Hx Alcohol Use: No Hx Substance Use: No Preferred Language: Polish Communication Ability: Effective Train Engineer Required: No Beliefs That Will Affect Care: None Current Living Situation: Spouse Current Living Situation Comment: Lives with and daughter Other Information That Helps Us Care for You: No Feels Safe at Home: Yes Safety Concerns: Feels Safe At This Time Assistive Devices: None Review of Systems Review of Systems: Neuro: (-) Falls, trauma, slurred speech HEENT: (-) MAHER, dizziness, dysphagia, visual or auditory changes CV: (+) right sided CP, (-) palpitations, trace bilateral LE swelling Resp: (-) SOB GI: (-) appetite changes, N/V/D, bowel changes : (-) urinary changes Skin: (-) rashes Psych: (+) anxiety, (-) depression Physical Exam Physical Exam: Neuro: AAOx4, PERRLA, no aphagia, memory changes, CNII-XII grossly intact HEENT: head normocephalic, moist mucus membranes CV: S1/S2, (-) M/G/R, (+) trace BL LE edema, cap refill < 3 seconds Resp: Lungs CTA in all thacker. On RA GI: Abdomen S/NT/ND, Ax4 bowel sounds, (-) CVA tenderness Musculoskeletal: 5/5 B/L UE strength, 5/5 B/L LE strength. No gait disturbance Skin: (-) rashes , (-) erythema. Psych: euthymic, yet anxious mood Results & Data Results & Data Vital Signs (Past 12 Hours) Vital Signs Temp Pulse Pulse Resp BP BP Pulse Ox 11/27/22 14:02 73 18 160/101 H 96 11/27/22 13:54 96 11/27/22 13:18 73 11/27/22 13:12 72 18 175/94 H 100 11/27/22 12:56 36.3 C L 81 16 204/81 H 98 O2 Del Method 11/27/22 14:02 Room Air 11/27/22 13:54 Room Air 11/27/22 13:18 11/27/22 13:12 Room Air 11/27/22 12:56 Room Air Laboratory Results Short CBC 11/27/22 Range/Units 13:10 WBC 8.94 (4.8-10.8) K/ul Hgb 14.1 (12.0-16.0) g/dl Hct 42.2 (37.0-47.0) % Plt Count 302 (130-400) K/uL BMP 11/27/22 13:10 Sodium 137 Potassium 3.9 Chloride 101 Carbon Dioxide 29 BUN 12 Creatinine 0.91 Glucose 132 H Calcium 10.2 Liver Function 11/27/22 Range/Units 13:10 Total Bilirubin 0.3 (0.2-1.0) mg/dl AST 17 (13-39) U/L ALT 18 (7-52) U/L Alkaline Phosphatase 89 (34-104) U/L Albumin 4.1 (3.4-5.0) gm/dl Diagnostic Findings Chest CTA 11/27/22 13:46 CT angio chest dissec wo/w con CT DOSE: 2102.19 mGy.cm HISTORY: 62 years-old Female with CP, HTN, R neck pain. Chest pain with hypertension TECHNIQUE: Multiple CTA images of the chest were obtained with and without the intravenous administration of 120 ml Optiray. Coronal and sagittal MIPS were obtained from the axial data set and were submitted for review. All measurements were obtained according to NASCET criteria. A dose lowering technique was utilized adhering to the principles of ALARA. COMPARISON: CT neck of same day, CTA chest 09/17/2016 FINDINGS: CTA: The heart is mildly enlarged. Prominent epicardial fat pad. No thoracic aortic aneurysm or dissection. Patency of the imaged great vessels. Mild atherosclerosis without intramural hematoma identified. No mediastinal hematoma. No pulmonary emboli are identified. CT CHEST: Heterogeneous thyroid. No lymphadenopathy. No pneumothorax, pleural effusion, airspace consolidation, overt pulmonary edema, suspicious pulmonary nodule or mass. Central airways are patent. No acute process of the imaged upper abdomen. Hepatic steatosis. Unremarkable soft tissues. Degenerative changes of the spine and shoulders. No acute fracture identified. IMPRESSION: 1. Cardiomegaly without pulmonary emboli or acute aortic pathology. 2. No pleural effusion or airspace consolidation to suggest pneumonia. 3. Hepatic steatosis. ACT 112: Negative or not required by law. The above report was generated using voice recognition software. It may contain grammatical, syntax or spelling errors. Electronically signed by: Lukas Martinez M.D. 11/27/2022 3:07 PM Neck CTA 11/27/22 13:46 CT ANGIOGRAM OF THE NECK CLINICAL HISTORY: Right-sided neck pain. COMPARISON STUDY: CT angiogram of the neck dated 02/03/2019. TECHNIQUE: Following the IV administration of 120 of Optiray 320, CT angiogram of the neck was performed from the aortic arch to the skull base. Images are reviewed in the axial, sagittal, and coronal planes. 3-D MIPS images are created and assessed. IV contrast was administered without complication. All measurements were calculated based on NASCET criteria. A dose lowering technique was utilized adhering to the principles of ALARA. The examination is degraded large body habitus, and streak artifact from the shoulders. FINDINGS: Thoracic aorta: Visualized portions of the thoracic aorta are normal in caliber. The aortic arch demonstrates standard 3-vessel anatomy. Right carotid arterial system: The right common carotid artery is widely patent, as are the right internal and external carotid arteries. Left carotid arterial system: The left common carotid artery is widely patent, as are the left internal and external carotid arteries. Vertebral arteries: There is moderate to high-grade focal stenosis at the origin of the right vertebral artery seen on axial image #314. The vertebral arteries are otherwise patent bilaterally and are codominant. No dissection is seen. Subclavian arteries: Widely patent bilaterally. Intracranial vasculature: The visualized intracranial vessels at the skull base are patent. Jugular veins: Widely patent bilaterally. Brain parenchyma: The visualized brain parenchyma the skull base is within normal limits. Lung apices: Partially visualized upper lobe lung parenchyma appears clear. Soft tissues: The visualized pharyngeal soft tissues are normal in appearance noting angiographic phase technique. The oropharyngeal airway appears widely patent. The thyroid gland is enlarged an heterogeneous. The salivary glands are normal in appearance. No cervical lymphadenopathy is seen. Skeletal structures: The visualized calvarium at the skull base appears intact. The imaged cervical spine is maintained noting mild spondylosis. No lytic or blastic lesion is seen. Sinuses and mastoids: There is gurt-bx-[id number] mucosal thickening within the maxillary antra. The remaining visualized paranasal sinuses are clear. There is trace right mastoid effusion. The left mastoid air cells are well pneumatized. IMPRESSION: 1. There is moderate to high-grade focal stenosis at the origin of the right vertebral artery. 2. Otherwise unremarkable CT angiogram of the neck. ACT 112: Negative or not required by law. Electronically signed by: Levon Pinto M.D. 11/27/2022 3:11 PM Code Status & VTE Plan Code Status Full Code in the event of cardiac or respiratory arrest VTE Prophylaxis Plan VTE Prophylaxis will be ordered: Yes Supervising Physician Co-Signing Physician Notes Ms. Roman is a 62 year old female with pmhx (per chart) of morbid obesity (BMI 49.9), NIDDM-II (associated with HTN and HLP), Hypothyroidism, GERD, and left internal carotid artery aneurysm. She presented d/t chest pain. Workup here is unimpressive thus far. Pt reports she walked to the bathroom, urinated, and returned to her desk. As she sat down she developed chest pain located in the center of her chest that was non-radiating, sharp, stabbing, lasted only a few seconds, and resolved spontaneously. This pain was different from the pain she has now which is more right sided, severe, and consistent with her usual reflux. She feels the need to burp. She denies any associated SOB, nausea, diaphoresis, and flushing. Reflux improved with Pepcid given in the ED. She has chronic sinus congestion, dizziness and balance deficit that remain at baseline. She has recently developed blurred intermittent blurred vision, at times seems associated with prolonged screen time, at times spontaneous. No other new symptoms. She denies malaise, fatigue, f/c, sore throat, cough, abdominal pain, and diarrhea. # atypical chest pain: resolved, doubtful d/t ACS however pt has multiple risk factors [DM, HTN, HLP, morbid obesity, family hx (Father of ME at the same age)] CTA chest neg for acute pathology cycle troponin, monitor on tele, f/u echo, f/u lipid panel # GERD: improved with Pepcid continue PPI or H2 stacy if pt is willing to comply, she is extremely anxious and does not like to take meds may benefit from OP f/u with GI for EGD # NIDDM-II: A1c 7.0 continue diabetic diet, glucose checks, insulin per protocol pt does not like Ozempic # Hypothyroid: continue levothyroxine Gen: morbid obesity BMI 49.9, NAD, non-toxic Head: NC AT Eyes: no scleral icterus or conjunctival injection Nose: normal, nares patent Mouth: MMM Neck: supple, trachea midline CV: RRR S1 S2 Pulm: CTA b/l Abd/GI: + BS, soft, NT, ND, no guarding Ext: no significant pretibial edema MSK: normal bulk and tone Neuro: alert, oriented, no focal deficits, moving all 4 extremities symmetrically Psych: anxious mood and affect Skin: visible skin is warm, dry, and without rash. Pt not fully undressed for exam. rest per attested note above
[2022-11-27 17:03] LABS: Prothrombin Time 10.7 Seconds (9.0-12.0)
[2022-11-27 17:08] LABS: Troponin I High Sensitivity 2.7 pg/ml (0-14)
[2022-11-27 17:15] LABS: Chol HDL Ratio 3.5 (0-5)
[2022-11-27] MEDS ORDERED: GLUCOSE 40% GEL 15 GM TUBE PO PRN (17:36)
[2022-11-27] MEDS ORDERED: GLUCOSE 10 TAB/TUBE PO PRN (17:36)
[2022-11-27] MEDS ORDERED: DEXTROSE 50% 50 ML SYRINGE IV PRN (17:36)
[2022-11-27] MEDS ORDERED: GLUCAGON FOR INJ 1 MG VIAL SQ PRN (17:36)
[2022-11-27] MEDS ORDERED: CARBOHYDRATES FOR HYPOGLYCEMIA PO PRN (17:36)
[2022-11-27] MEDS ORDERED: PHARMACY GLYCEMIC MGMT CONSULT PRN (17:36)
[2022-11-27] MEDS ORDERED: ENOXAPARIN INJ 40 MG/0.4 ML SYR SQ SCH (18:15)
[2022-11-27] MEDS ORDERED: PNEUMOCOCCAL POLYSACCHARIDES 25 MCG/0.5 ML VIAL/SYR IM ONE (18:24)
[2022-11-27 18:28] LABS: Estimated Average Glucose 154 mg/dl
[2022-11-27] MEDS: INSULIN ASPART PER UNIT CHARGE SC SCH ×2 (18:33→21:33)
--- NOTE | 2022-11-27 19:01 | XRay Report ---
RIGHT SHOULDER 3 VIEWS CLINICAL HISTORY: Right shoulder pain. FINDINGS: 3 views the right shoulder are obtained. No prior studies are available for comparison at t he time of dictation. The skeletal structures are osteopenic. There is no radiographic evidence of fr acture or dislocation. Mild degenerative change is seen at the glenohumeral and acromioclavicular maki nts. There is calcific tendinopathy. The overlying soft tissues are otherwise normal in appearance. T he visualized right lung parenchyma appears clear. IMPRESSION: 1. No acute bony abnormality is identified. 2. Calcific tendinopathy. Electronically signed by: Levon Pinto M.D. 11/27/2022 7:00 PM
[2022-11-27] MEDS ORDERED: LORazepam 0.5 MG TAB PO PRN (19:12)
[2022-11-27] MEDS ORDERED: LANTUS PER UNIT CHARGE SQ SCH (21:00)
[2022-11-27] MEDS ORDERED: LANTUS PER UNIT CHARGE SC ONE (21:00)
[2022-11-27] MEDS ORDERED: INSULIN ASPART PER UNIT CHARGE SC SCH (21:00)
[2022-11-27] MEDS ORDERED: oxyCODONE HCL IR 5 MG TAB (IMMEDIATE RELEASE) PO PRN (21:06)
[2022-11-27] MEDS: ALUMINUM/MAGNESIUM SUSP 30 ML UDC PO PRN (21:29)
--- NOTE | 2022-11-27 22:21 | Ultrasound Report ---
ULTRASOUND RIGHT UPPER QUADRANT ABDOMEN CLINICAL HISTORY: Right upper quadrant abdominal pain. COMPARISON STUDY: Abdominal ultrasound dated 08/27/2018. Abdominal CT dated 05/04/2017. TECHNIQUE: Real-time, grayscale, and color flow sonography of the right upper quadrant of the abdomen was performed. Images are reviewed in the transverse and longitudinal planes. FINDINGS: Liver: The liver is enlarged and demonstrates heterogeneously increased echotexture indicating steato sis. Fatty sparing is seen adjacent to the gallbladder fossa. There is no intrahepatic biliary ductal dilatation. The main portal vein is patent. Gallbladder: The gallbladder is normal in appearance. No gallstones are identified. There is no gallb ladder wall thickening or pericholecystic fluid. A sonographic Flores's sign is reportedly absent. Th e common bile duct measures up to 0.3 cm in diameter. Pancreas: Not well-visualized due to overlying bowel gas. Right kidney: Survey images of the right kidney demonstrate cortical atrophy. Echotexture is normal. There is no hydronephrosis. Ascites: None. IMPRESSION: 1. No acute sonographic abnormality is seen in the right upper quadrant. No gallstones are identified . 2. Hepatomegaly and hepatic steatosis. ACT 112: Negative or not required by law. Electronically signed by: Levon Pinto M.D. 11/27/2022 10:19 PM
[2022-11-28] MEDS ORDERED: LEVOTHYROXINE SODIUM 200 MCG TABLET PO SCH (06:30)
[2022-11-28 06:40] LABS: Hematocrit (blood only) 39.1 % (37.0-47.0); Hemoglobin 13.1 g/dl (12.0-16.0); Mean Corpuscular Hgb Conc 33.5 g/dL (32.0-36.0); Mean Corpuscular Volume 92.4 fL (80.0-100.0); Mean Platelet Volume 10.1 fL (9.4-12.4); Platelet Count 260 K/uL (130-400); RDW Coefficient of Variation 13.2 % (11.5-14.5); RDW Standard Deviation 44.3 fL (36.4-46.3); Red Blood Count 4.23 M/uL (4.20-5.40); White Blood Count 7.74 K/ul (4.8-10.8)
[2022-11-28 06:43] LABS: Albumin Level 3.6 gm/dl (3.4-5.0); Bilirubin,Total 0.5 mg/dl (0.2-1.0); Calcium 9.5 mg/dl (8.6-10.3); Creatinine Clr Calc Pharmacy 91.1 ml/min; Est GFR (Non-African American) 59.5 ml/min; Globulin 3.7 gm/dl (2.5-4.0); Magnesium 1.6 mg/dl (1.7-2.4); Potassium 3.8 mmol/L (3.5-5.1); Total Protein 7.3 gm/dl (6.0-8.3)
[2022-11-28] MEDS ORDERED: lisinopril 40 MG TAB PO SCH (09:00)
[2022-11-28] MEDS: INSULIN ASPART PER UNIT CHARGE SC SCH ×2 (09:12→12:30)
[2022-11-28] MEDS: ALUMINUM/MAGNESIUM SUSP 30 ML UDC PO PRN (09:22)
[2022-11-28 10:30] LABS: Appearance Urine Clear (Clear); Bacteria Urine Automated Negative (Negative); Bilirubin Urine Negative (Negative); Blood Urine Trace (Negative); Cast Urine Automated 0 /lpf (0-5); Color Urine Yellow; Glucose Urine UA Negative (Negative); Ketones Urine Negative (Negative); Leukocyte Esterase Urine Negative (Negative); Nitrite Urine Negative (Negative); Protein Urine Negative (Negative); RBC Urine Automated 0-4 /hpf (0-4); Specific Gravity Urine 1.008 (1.000-1.030); Urobilinogen Urine Negative (Negative); WBC Urine Automated 0 /hpf (0-5); pH Urine 6.5 (4.5-7.5)
--- NOTE | 2022-11-28 11:14 | Hospitalist Progress Note ---
Date of Service November 28, 2022 Assessment & Plan (1) Atypical chest pain: (2) HTN (hypertension): (3) Aneurysm of left internal carotid artery: (4) Dyslipidemia: (5) Diabetes mellitus: (6) Obesity (BMI 30-39.9): (7) Hypothyroidism (acquired): (8) GERD (gastroesophageal reflux disease): Plan 62-year-old presents with atypical exertional chest pain. Chest CTA negative for PE. Head neck CTA moderate high-grade stenosis right vertebral artery. Do not suspect ACS; however, she is a high cardiac risk with morbid obesity and family cardiac history, uncontrolled HLD and is a Diabetic. Initial Trop negative; will trend for chest pain rule out; obtain ECHO, and lipid panel. Atypical chest pain: Denies syncope or near syncope Chest CTA: Cardiomyopathy without PE; no pleural effusions Initial troponin 3.1 and serial troponins did not show any increase in level Wells score 3 for PE EKG did not show any significant change ECHO: The LV is normal in size, no regional motion abnormalities, EF 60 to 65%, there is no significant valvular disease and Doppler findings do not suggest pulmonary hypertension No more chest pain and doubt the pain is of any cardiac origin She has been ambulating in the room without any chest pain or any other symptoms She will have outpatient cardiology evaluation GERD: Has a prescription for Omeprazole but does not want to fill it Takes TUMS intermittently Pepcid given in ED; some relief Chest pain/epigastric pain is controlled with Maalox Will start Protonix while in the hospital Atypical chest pain seems to be secondary to GERD related symptoms HTN urgency: BP 190/101 in ED; aspirin given Normotensive; suspect elevation d/t anxiety Takes lisinopril; continue Was on amlodipine but has been DC Initial blood pressure is high likely secondary to anxiety and he seems to be stable this morning 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 Jensen under neurosurgery measurin x 3 mm Dyslipidemia: 06/2022: Lipid panel; triglycerides 117, LDL 91 Repeat lipid panel while inpatient Prescribed Rosuvastatin; noncompliant. Discussed heart attack and stroke risk factors with patient and Diabetes mellitus: Obesity: BMI 48 [id number] Takes Ozempic; hold while inpatient FSBS ACHS SSI while inpatient 08/27 A1c 6.8; recheck while here She is going to try diet and exercise to control her weight Hypothyroidism: Takes levothyroxine; continue Disposition: PCP: Dr. Mares CODE STATUS: Full code VTE prophylaxis: Lovenox SQ Admission and Anticipated Discharge Date Admission Date: November 27, 2022 Subjective 11/28/2022 The patient was seen and examined in telemetry unit She was admitted with atypical chest pain consisting of lower central chest/epigastric discomfort with fullness and without any other associated symptoms She missed her dose of omeprazole and she has been feeling better with antacid She denies any more pain since this morning She has been ambulating without any symptoms she wants to go home Review of Systems Review of Systems: All systems reviewed and are unremarkable except as noted below Cardiovascular: Additional Comments: No more chest pain and no other symptoms Physical Exam Physical Exam: Sitting at the edge of the bed without any acute distress Constitutional: well developed, well nourished and + morbidly obese; not ill appearing Eyes: PERRL, conjunctivae normal, anicteric sclerae ENMT: external ear and nose normal, oropharynx normal Neck: trachea midline, no thyromegaly Respiratory: no respiratory distress Auscultation: lungs clear to auscultation bilaterally Cardiovascular: Rate/Rhythm: regular rate and regular rhythm; not tachycardic Heart Sounds: normal S1 and normal S2; no murmur Extremities: + edema (Trace edema bilaterally) Gastrointestinal (Abdomen): Inspection/Auscultation: normal bowel sounds; abd omen not distended Percussion/Palpation: + abdomen tender (Minimally tender epigastrium) and abdomen soft Musculoskeletal: No acute arthritis involving any of the joint Neurologic: normal touch/pain/proprioception and moves all extremities; no focal motor deficits Psychiatric: A+Ox3, euthymic affect Lymphatic: no cervical or axillary lymphadenopathy Results & Data Results & Data Vital Signs (Past 12 Hours) Vital Signs Temp Pulse Pulse Resp BP Pulse Ox O2 Del Method 11/28/22 07:53 36.2 C L 75 20 144/77 H 95 Room Air 11/28/22 07:41 68 11/28/22 04:00 36.9 C 74 18 133/77 94 Room Air 11/27/22 23:39 36.7 C 76 18 164/83 H 93 Room Air Laboratory Results Short CBC 11/27/22 11/28/22 Range/Units 13:10 05:44 WBC 8.94 7.74 (4.8-10.8) K/ul Hgb 14.1 13.1 (12.0-16.0) g/dl Hct 42.2 39.1 (37.0-47.0) % Plt Count 302 260 (130-400) K/uL BMP 11/27/22 11/28/22 13:10 05:44 Sodium 137 137 Potassium 3.9 3.8 Chloride 101 102 Carbon Dioxide 29 29 BUN 12 12 Creatinine 0.91 1.00 Glucose 132 H 133 H Calcium 10.2 9.5 Liver Function 11/27/22 11/28/22 Range/Units 13:10 05:44 Total Bilirubin 0.3 0.5 (0.2-1.0) mg/dl AST 17 15 (13-39) U/L ALT 18 16 (7-52) U/L Alkaline Phosphatase 89 70 (34-104) U/L Albumin 4.1 3.6 (3.4-5.0) gm/dl Urine 11/28/22 Range/Units Unknown Urine Color Yellow Urine Appearance Clear (Clear) Urine pH 6.5 (4.5-7.5) Ur Specific [place] 1.008 (1.000-1.030) Urine Protein Negative (Negative) Urine Glucose (UA) Negative (Negative) Medications Administered Current Inpatient Medications Acetaminophen (Acetaminophen 325 Mg Tab) 650 mg PO Q4H PRN PRN Reason: Pain or Fever Stop: 12/27/22 15:50 Last Admin: 11/28/22 09:22 Dose: 650 mg Al Hydrox/Mg Hydrox/Simethicone (Aluminum/Magnesium Susp 30 Ml Udc) 15 ml PO Q6H PRN PRN Reason: Heartburn Stop: 12/27/22 21:14 Last Admin: 11/28/22 09:22 Dose: 15 ml Dextrose (Dextrose 50% 50 Ml Syringe) 25 - 50 ml IV UD PRN; Protocol PRN Reason: Hypoglycemia Protocol Stop: 12/27/22 17:35 Enoxaparin Sodium (Enoxaparin Inj 40 Mg/0.4 Ml Syr) 40 mg SQ QAM VIKAS Stop: 12/27/22 18:14 Last Admin: 11/27/22 19:19 Dose: Not Given Ergocalciferol (Ergocalciferol 50,000 Units 1250 Mcg Cap) 50,000 units PO Mo@0900 [facility] Stop: 12/30/22 08:59 Glucagon (Glucagon For Inj 1 Mg Vial) 1 mg SQ UD PRN; Protocol PRN Reason: Hypoglycemia Protocol Stop: 12/27/22 17:35 Glucose (Glucose 10 Tab/Tube) 4 - 8 tab PO UD PRN; Protocol PRN Reason: Hypoglycemia Treatment Stop: 12/27/22 17:35 Glucose (Glucose 40% Gel 15 Gm Tube) 15 - 30 gm PO UD PRN; Protocol PRN Reason: Hypoglycemia Protocol Stop: 12/27/22 17:35 Insulin Aspart (Insulin Aspart Per Unit Charge) 0 units SC ACHS [facility] Stop: 12/27/22 17:59 Last Admin: 11/28/22 09:12 Dose: 4 units Levothyroxine Sodium (Levothyroxine Sodium 200 Mcg Tablet) 200 mcg PO DAILYBB [facility] Stop: 12/28/22 06:29 Last Admin: 11/28/22 06:26 Dose: 200 mcg Lisinopril (Lisinopril 40 Mg Tab) 40 mg PO QAM [facility] Stop: 12/28/22 08:59 Last Admin: 11/28/22 09:11 Dose: 40 mg Lorazepam (Lorazepam 0.5 Mg Tab) 0.5 mg PO Q6H PRN PRN Reason: Anxiety Stop: 12/27/22 19:11 Magnesium Hydroxide (Magnesium Hydroxide Susp 30 Ml Udc) 30 ml PO Q12H PRN PRN Reason: Constipation Stop: 12/27/22 15:50 Miscellaneous (Carbohydrates For Hypoglycemia ) 15 - 30 gm PO UD PRN PRN Reason: Hypoglycemia Protocol Stop: 12/27/22 17:35 Miscellaneous Information (Pharmacy Glycemic Mgmt Consult) 1 each N/A UD PRN PRN Reason: Consult Stop: 12/27/22 17:35 Oxycodone HCl (Oxycodone Hcl Ir 5 Mg Tab (Immediate Release)) 5 - 10 mg PO QID PRN PRN Reason: Pain Stop: 12/11/22 21:05 Pantoprazole Sodium (Pantoprazole 40 Mg Tab) 40 mg PO QAM [facility] Stop: 12/28/22 11:29 Polyethylene Glycol (Polyethylene (Miralax) 17 Gm Pack) 17 gm PO DAILY PRN PRN Reason: Constipation Stop: 12/27/22 15:50
[2022-11-28] MEDS ORDERED: PANTOprazole 40 MG TAB PO SCH (11:30)
--- NOTE | 2022-11-29 07:52 | Discharge Summary ---
Date of Service November 28, 2022 Admission HPI Per Admitting Provider Ms. Roman is a 62 year old female that presents to the [facility] with exertional chest pain that has been persistent and worsened today while she was at work. Patient went to the bathroom at 1030 and came back with right sided chest pain with radiation to her right shoulder. No shortness of breath with event; but dizziness. Currently, patient with 2/10 right sided chest pain. Has seen chiropractor recently for right shoulder pain but no formal work up. Received Pepcid in ED with some relief. Patient has significant reported anxiety related to medications. She was a statin and has stopped taking it on her own. She does not take any anticoagulants or antiplatelet medications. Pt at bedside and no noted slurred speech or aphagia. Discussed heart attack and stroke risk factors with patient and . Denies syncope or near syncope. No LOC. Patient has family cardiac history including father dying from AMI at 64 years old. Pt denies tobacco use, alcohol use, or recreational drug use. Lab work up CBC and BMP unremarkable. Initial Troponin 3.1; will trend Q6 x3. Baseline creatinine 0.9-1.0. Chest CTA cardiomegaly without PE; no pleural effusions with hepatic steatosis. Most Recent ECHO 12/2021: Normal LV size with mild concentric LVH. Normal LV function without regional wall motion abnormality, EF 61%, grade 1 diastolic dysfunction without significant valvular pathology. Patient has been followed at [facility] for cerebral aneurysm. Additional PMH includes: NIDDM2, HTN, HLD, hypothyroidism, and morbid obesity. 09/2022: Head MRA without contrast Findings raise concern for mild interval enlargement of the saccular aneurysm in the left paraclinoid/paraophthalmic ICA. Aneurysm repair planned for December 24, 2022 at [facility]. MRI study and indeed there is some degree of concern that the aneurysm has grown some. I don't think this is a cause for concern by I do think we should repeat the angiogram to get the best pictures of the aneurysm and compare it to the previous angiogram we did back in 2019.The patient had a repeat MRA completed on 09/26/2022 showing a slight interval increase in size of the aneurysms. 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 Patient will be admitted for further evaluation and management. Please see A/P for further details. Admission Exam Per Admitting Provider Physical Exam: Neuro: AAOx4, PERRLA, no aphagia, memory changes, CNII-XII grossly intact HEENT: head normocephalic, moist mucus membranes CV: S1/S2, (-) M/G/R, (+) trace BL LE edema, cap refill < 3 seconds Resp: Lungs CTA in all thacker. On RA GI: Abdomen S/NT/ND, Ax4 bowel sounds, (-) CVA tenderness Musculoskeletal: 5/5 B/L UE strength, 5/5 B/L LE strength. No gait disturbance Skin: (-) rashes , (-) erythema. Psych: euthymic, yet anxious mood Principal Diagnosis Atypical chest pain , GERD, type 2 diabetes Discharge Exam Sitting at the edge of the bed without any acute distress Constitutional well developed, well nourished and + morbidly obese; not ill appearing Eyes PERRL, conjunctivae normal, anicteric sclerae ENMT external ear and nose normal, oropharynx normal Neck trachea midline, no thyromegaly Respiratory no respiratory distress Auscultation: lungs clear to auscultation bilaterally Cardiovascular Rate/Rhythm: regular rate and regular rhythm; not tachycardic Heart Sounds: normal S1 and normal S2; no murmur Extremities: + edema (Trace edema bilaterally) Gastrointestinal (Abdomen) Inspection/Auscultation: normal bowel sounds; abdomen not distended Percussion/Palpation: + abdomen tender (Minimally tender epigastrium) and abdomen soft Neurologic normal touch/pain/proprioception and moves all extremities; no focal motor deficits Psychiatric A+Ox3, euthymic affect Lymphatic no cervical or axillary lymphadenopathy Discharge Data Allergies Allergy/AdvReac Type Severity Reaction Status Date / Time magnesium sulfate Allergy Severe BREATHING Verified 04/07/19 09:37 DIFFICULTY, HIVES Sulfa (Sulfonamide Allergy Intermediate HIVES Verified 04/07/19 09:37 Antibiotics) cat dander Allergy Mild watery, Verified 04/07/19 09:37 itchy eyes mold Allergy Mild watery, Verified 04/07/19 09:37 itchy eyes tomato Allergy Mild hands/feet Verified 04/07/19 09:37 itch orange Allergy Unknown food Verified 04/07/19 09:37 sensitivity shrimp Allergy Unknown food Verified 04/07/19 09:37 sensitivity morphine AdvReac Mild disoriented Verified 04/07/19 09:37 Consultations 11/27/22 15:38 ED Decision to Admit Stat Ordered Studies 11/27/22 13:46 CT angio chest dissec wo/w con Stat CT angio neck with con Stat 11/27/22 21:15 US gallbladder Stat Hospital Course (1) Atypical chest pain: (2) HTN (hypertension): (3) Aneurysm of left internal carotid artery: (4) Dyslipidemia: (5) Diabetes mellitus: (6) Obesity (BMI 30-39.9): (7) Hypothyroidism (acquired): (8) GERD (gastroesophageal reflux disease): Plan 62-year-old presents with atypical exertional chest pain. Chest CTA negative for PE. Head neck CTA moderate high-grade stenosis right vertebral artery. Do not suspect ACS; however, she is a high cardiac risk with morbid obesity and family cardiac history, uncontrolled HLD and is a Diabetic. Initial Trop negat shane; will trend for chest pain rule out; obtain ECHO, and lipid panel. Atypical chest pain: Denies syncope or near syncope Chest CTA: Cardiomyopathy without PE; no pleural effusions Initial troponin 3.1 and serial troponins did not show any increase in level Wells score 3 for PE EKG did not show any significant change ECHO: The LV is normal in size, no regional motion abnormalities, EF 60 to 65%, there is no significant valvular disease and Doppler findings do not suggest pulmonary hypertension No more chest pain and doubt the pain is of any cardiac origin She has been ambulating in the room without any chest pain or any other symptoms She will have outpatient cardiology evaluation GERD: Has a prescription for Omeprazole but does not want to fill it Takes TUMS intermittently Pepcid given in ED; some relief Chest pain/epigastric pain is controlled with Maalox Will start Protonix while in the hospital Atypical chest pain seems to be secondary to GERD related symptoms HTN urgency: BP 190/101 in ED; aspirin given Normotensive; suspect elevation d/t anxiety Takes lisinopril; continue Was on amlodipine but has been DC Initial blood pressure is high likely secondary to anxiety and he seems to be stable this morning 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 Jensen under neurosurgery measurin x 3 mm Dyslipidemia: 06/2022: Lipid panel; triglycerides 117, LDL 91 Repeat lipid panel while inpatient Prescribed Rosuvastatin; noncompliant. Discussed heart attack and stroke risk factors with patient and Diabetes mellitus: Obesity: BMI 48 [id number] Takes Ozempic; hold while inpatient FSBS ACHS SSI while inpatient 08/27 A1c 6.8; recheck while here She is going to try diet and exercise to control her weight Hypothyroidism: Takes levothyroxine; continue Disposition: PCP: Dr. Mares CODE STATUS: Full code VTE prophylaxis: Lovenox SQ Total Time Total Time Spent Total Time Spent (In Minutes): 35 minutes Discharge Plan Discharge Items Patient Disposition: Home - Self-Care Reason For Visit: EXERTIONAL CHEST PAIN Discharge Diagnosis: Atypical chest pain , GERD, type 2 diabetes Condition on Discharge: Good Activity: Resume your previous activity Non-emergency contact: Primary Care Provider Call non-emergency contact if: you have any medication questions and your symptoms worsen Follow-up/Referrals: Roshni Mares MD [Primary Care Provider] - (Your doctor's office will call you with an appointment within 7 days) Diet: Carb Consistent or DM2 Addtl Attending Provider Instructions: Please take precautions to avoid falls. Try to avoid any NSAIDs like ibuprofen, aspirin, Motrin etc. Take omeprazole and/or Protonix regularly Please give appointment with your healthcare provider Pending Studies at Discharge: No Stand-Alone Forms: [employer] [place], Smoking Cessation Medications and DC Order Prescriptions: Continued meclizine 25 mg tablet 25 mg PO TID PRN (Reason: dizziness) Qty: 14 0RF levothyroxine [Synthroid] 200 mcg tablet 200 mcg PO QAM lisinopril 40 mg Tablet 40 mg PO QAM ergocalciferol (vitamin D2) [Vitamin D2] 1,250 mcg (50,000 unit) capsule 1,250 mcg PO WK Rx Instructions: MONDAYS Ozempic 0.25 mg or 0.5 mg (2 mg/3 mL) Pen Injector 0.25 mg SUBCUT WK Rx Instructions: WEDNESDAY Discharge Orders: Discharge Order (Routine); Ordered 11/28/22 Ordered By: Mel Gamino Admission Data Admit Date/Time: 11/27/22 15:51 Attending Provider: Mel Gamino Admit Provider: Margaret Ramirez Primary Care Provider: Roshni Mares Other Providers: Margaret Ramirez Other Interventions: Discharge Summary Assessment (RN) Last Done: 11/28/22 13:30
[2022-11-30] MEDS ORDERED: ERGOCALCIFEROL 50,000 UNITS 1250 MCG CAP PO SCH (09:00)
== END 2022-11-28 14:00 | disposition home or self-care (01) | DRG 392 ==
LOC: ED 12:52 → INTOOBSV 15:51 → SUATTDRO 15:51 → 4W 15:51

== ENCOUNTER 2024-09-30 19:15 | Observation (INO) ==
--- NOTE | 2024-09-30 19:24 | Emergency Department Note ---
Impression & Plan Chest pain, Abnormal dobutamine stress echocardiogram ED Provider Note NAME: JUAN GALAN AGE: 64 SEX: F : 1960 ARRIVES VIA: Walk-In INFORMANT: Patient, ED PROVIDER(S): Amado Mackenzie MD CHIEF COMPLAINT: Chest pain MEDICAL DECISION MAKING: Patient presents due to concern for chest pressure in the setting of a recent abnormal stress echocardiogram. IV was established and blood work was obtained. Initial EKG without signs of obvious STEMI. The patient was ordered 243 of aspirin as the patient already taken a baby aspirin and was ordered nitro. Patient was noted to be hypertensive with a systolic of 180s. Patient's blood work with a normal white count hemoglobin and platelet count. The patient's kidney function was unremarkable. Troponin not elevated. Chest x-ray does not show obvious pneumonia or pneumothorax. Patient did receive a nitro without significant change. However, given the patient's abnormal outpatient stress echocardiogram do believe the patient would benefit from inpatient treatment. I did speak with the on-call hospitalist service and the patient was admitted to the medicine service by Dr. Patel. Discussion w/ other healthcare providers: Dr. Winslow inpatient medicine service Prior /Outside records reviewed: I reviewed part of a dobutamine stress echo report which commented abnormal to be in a stress echo demonstrating mostly mild global hypokinesis at peak stress but negative dobutamine EKG for ischemia at 92% of max predicted heart rate. No arrhythmia. Normal left ventricular size and systolic function with no regional wall motion abnormalities with mild concentric LVH. Differential diagnosis: Cardiac ischemia, aortic dissection, pulmonary embolism, pneumothorax, pneumonia, pericarditis, myocarditis, GERD, cholecystitis, pancreatitis, musculoskeletal, as well as other pathologies were considered. Diagnostics, as interpreted by me: ECG: Normal sinus rhythm, rate of 80, normal intervals, normal axis no obvious ST elevations. Cardiac monitoring: An order was placed for continuous cardiac monitoring. The monitor shows a rate of 82 with sinus rhythm. Patient was placed on pulse oximetry Medical decision rules: none Imaging studies: I informally interpreted the patient's chest x-ray does not show obvious pneumonia or pneumothorax with formal report to follow. HPI: Patient presents to concern for chest pain. Patient describes it as being in the right lower chest as a pressure. Currently 5 out of 10. She states initially began around 930 has been really constant although had a brief respite but then returned. Patient was then encouraged by her and her to present today. She reports that she did have a recent echo stress test that she states was abnormal. She states that there were "no red flags" and was difficult to interpret. Patient states she has not taken thing for chest pain at home. No prior history of any heart disease in herself. No history of DVT or PE. No asymmetric leg swelling although the patient thinks that maybe she has a little bit of swelling in her legs compared to normal. Patient denies any recent surgeries or procedures or hospitalizations and no recent prolonged car or plane travel. Patient states it feels as if she cannot take a big deep breath. No pleuritic pain. Patient states that she did feel a little clammy/sweaty yesterday. She states that she sometimes gets a tightness in her right neck but unsure as whether not she has true radiation of pain to her neck. PAST MEDICAL HISTORY: See Below PAST SURGICAL HISTORY: See Below SOCIAL HISTORY: See Below HOME MEDICATIONS: See Below ALLERGIES: See Below VITALS: See Below PHYSICAL EXAMINATION: GENERAL: NAD, non-toxic. EYE EXAM: Normal conjunctiva. PERRL, no anisocoria and EOM's grossly intact w/o pain. OROPHARYNX: Moist mucus membranes, grossly normal dentition. NECK: Trachea midline, no stridor. Supple, no nuchal rigidity, no adenopathy, non-tender. No signs of meningismus. FROM of the neck with good chin to chest and neck extension. LUNGS: Clear to auscultation. Normal chest wall mechanics. HEART: NSR, no MRG. ABDOMEN: Abdomen soft, non-tender, no masses, no rebound or guarding. BACK: No CVA TTP. SKIN: No rashes and no bruising. UPPER EXTREMITIES: Upper extremities are grossly normal. LOWER EXTREMITIES: Grossly normal, no edema. Negative Homans' sign bilaterally. NEURO EXAM: A&O x3, cranial nerves II-XII grossly intact, normal speech, moves all 4 extremities. Past Med/Surg History Problem List (Updated 09/30/24 @ 22:44 by Amado Mackenzie MD) Abnormal dobutamine stress echocardiogram (Acute) Chest pain (Acute) Encounter for pre-operative examination Sensorineural hearing loss, bilateral Tinnitus, bilateral Dizziness and giddiness Abdominal pain Dysphagia Cardiovascular event risk On statin therapy Hx of vertigo "comes and goes" treated with ENT and Physical Therapy with no diagnosis. Aneurysm of left internal carotid artery pt unaware, states she is only aware of the small brain aneurysm. Diabetes mellitus HTN (hypertension) (Acute) Rectal bleeding Brain aneurysm "very small and monitoring, MRI in 1 year"--angiogram 12/24/22 @ [facility], no neurologist Obesity (BMI 30-39.9) Vitamin D deficiency GERD (gastroesophageal reflux disease) Hypothyroidism (acquired) Right upper quadrant abdominal pain Atypical chest pain (Acute) Dyslipidemia Medical History Aneurysm of left internal carotid artery "I've tried to track that down and they said no" will be seeing [facility] Cardiology 09/06/24 Dyslipidemia Brain aneurysm "very small and monitoring" --angiogram 12/24/22 @ [facility] Neurology - doesn't need angiogram until 2025 as per patient Alternating constipation and diarrhea Dysphagia Abdominal pain Hx of motion sickness Diabetes mellitus, type 2 NIDDM Morbid obesity with BMI of 45.0-49.9, adult Vertigo Hypertension GERD (gastroesophageal reflux disease) Fatty liver Hiatal hernia Nausea and vomiting after administration of anesthetic agent has used the scope patch in the past with success History of anesthesia reaction difficulty waking History of colon polyps Hypothyroidism Surgical History History of cataract surgery Bilateral S/P carpal tunnel release left hand (MAC anesthesia) right hand (local anesthesia) History of angiography angiogram done of brain (2018 & 12/24/22 at [facility]) History of colonoscopy History of esophagogastroduodenoscopy (EGD) History of section x1 History of dilatation and curettage History of wisdom tooth extraction History of tooth extraction History of tonsillectomy and adenoidectomy History of appendectomy Family History Sister Nausea and vomiting after administration of anesthetic agent Family history of diabetes mellitus Breast cancer, Onset Age: 40 Father Myocardial infarction, Onset Age: 64 from heart attack Mother Myocardial infarction, Onset Age: 78 Grandmother (Maternal) History of stomach cancer Denies family history of Ovarian cancer Prostate cancer Colorectal cancer Social History Smoking Status: Never smoker Second Hand Exposure: No; Do You Dip or Chew Tobacco: No; Hx Alcohol Use: No Hx Substance Use: No Preferred Language: Azeri Communication Ability: Effective Visual Impairment: No Limitations Hearing Ability: Normal Welding Technician Required: No Beliefs That Will Affect Care: None marital status: Current Living Situation: Spouse Current Living Situation Comment: Lives with and daughter current occupational status: retired 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 Archer) during the past year weight has: increased > 10 lbs Dental Care, Regularly: Yes Physical Activity Frequency: Daily Seatbelt Use: always Sunscreen Use: Yes Assistive Devices: None Allergies Allergies Allergy/AdvReac Type Severity Reaction Status Date / Time cat dander Allergy Severe watery, Verified 09/30/24 19:58 itchy eyes, congestion, trouble breathing magnesium sulfate Allergy Severe Difficulty Verified 09/30/24 19:58 breathing, hives, hallucinations morphine Allergy Severe disoriented, Verified 09/30/24 19:58 decreased breathing Sulfa (Sulfonamide Allergy Intermediate Hives Verified 09/30/24 19:58 Antibiotics) mold Allergy Mild watery, Verified 09/30/24 19:58 itchy eyes tomato Allergy Mild hands/feet Verified 09/30/24 19:58 itch orange Allergy Unknown food Verified 09/30/24 19:58 sensitivity shrimp Allergy Unknown food Verified 09/30/24 19:58 sensitivity (per allergy testing) semaglutide [From Ozempic] AdvReac Severe abdominal Verified 09/30/24 19:58 pain, n/v, abdominal bloating empagliflozin AdvReac Intermediate yeast Verified 09/30/24 19:58 [From Jardiance] infection, emotional Home Meds Home Medications Medication Instructions Recorded Confirmed lisinopril 40 mg tablet 40 mg PO QAM 04/04/19 09/30/24 ergocalciferol (vitamin D2) 1,250 1,250 mcg PO WK 11/27/22 09/30/24 mcg (50,000 unit) capsule (Vitamin D2) hydrochlorothiazide 12.5 mg tablet 12.5 mg PO QAM 02/01/23 09/30/24 blood-glucose meter (Contour Next 07/19/23 09/30/24 Meter) fluticasone propionate 50 1 spray intranasal DAILY PRN 08/11/23 09/30/24 mcg/actuation nasal Congestion spray,suspension (Flonase Allergy Relief) levothyroxine 175 mcg tablet 175 mcg PO QAM 09/06/24 09/30/24 (Synthroid) famotidine 20 mg tablet 20 mg PO BID 09/30/24 09/30/24 meclizine 25 mg tablet 12.5 - 25 mg PO BID PRN Dizziness 09/30/24 09/30/24 Or Vertigo metformin 500 mg tablet,extended 500 mg PO QAM 09/30/24 09/30/24 release 24 hr Previous Rx's Medication Instructions Recorded lancets 30 gauge (OneTouch #100 ea 05/14/23 UltraSoft 2 Lancet) blood sugar diagnostic (Contour #100 ea 07/19/23 Next Test Strips) Results & Data (ED) Vital Signs Vital Signs - 24 hr 09/30/24 19:19 09/30/24 19:35 09/30/24 19:38 Temperature 36.6 C Temperature Source Oral Pulse Rate 75 82 70 Pulse Rate [Right Finger] Pulse Rhythm Regular Respiratory Rate 18 18 Respiratory Effort / Characteristics Non-Labored Spontaneous Respiratory Depth Normal Respiratory Pattern Regular Blood Pressure 168/83 H Blood Pressure [Right Arm] Blood Pressure Mean 111 Blood Pressure Mean [Right Arm] Blood Pressure Position [Right Arm] Pulse Oximetry 98 97 Oxygen Delivery Method Room Air Room Air Sepsis Recent Fever Within 48 Hours No Sepsis New/Unexplained Change in Mental Status No Sepsis Action Taken by Nursing No Action Required 09/30/24 21:14 09/30/24 21:30 Temperature Temperature Source Pulse Rate Pulse Rate [Right Finger] 84 86 Pulse Rhythm Respiratory Rate 18 17 Respiratory Effort / Characteristics Non-Labored Spontaneous Non-Labored Spontaneous Respiratory Depth Normal Normal Respiratory Pattern Regular Regular Blood Pressure Blood Pressure [Right Arm] 195/77 H 161/78 H Blood Pressure Mean Blood Pressure Mean [Right Arm] 116 105 Blood Pressure Position [Right Arm] Sitting Sitting Pulse Oximetry 95 94 Oxygen Delivery Method Room Air Room Air Sepsis Recent Fever Within 48 Hours Sepsis New/Unexplained Change in Mental Status Sepsis Action Taken by Snf Medications Current Medication List: was personally reviewed by me Laboratory Data Attestation: I reviewed the patient's lab results. 09/30/24 19:32 09/30/24 19:32 Lab Results 09/30/24 Range/Units 19:32 WBC 10.68 (4.8-10.8) K/ul RBC 4.69 (4.20-5.40) M/uL Hgb 14.0 (12.0-16.0) g/dl Hct 42.8 (37.0-47.0) % MCV 91.3 (80.0-100.0) fL MCH 29.9 (25.0-34.0) pg MCHC 32.7 (32.0-36.0) g/dL RDW Std Deviation 45.5 (36.4-46.3) fL RDW Coeff of Mitul 13.6 (11.5-14.5) % Plt Count 335 (130-400) K/uL MPV 10.0 (9.4-12.4) fL Immature Gran % (Auto) 0.2 % Neut % (Auto) 62.7 % Lymph % (Auto) 28.1 % Reagan % (Auto) 7.4 % Eos % (Auto) 1.3 % Baso % (Auto) 0.3 % Neut # (Auto) 6.70 H (1.40-6.50) K/uL Lymph # (Auto) 3.00 (1.20-3.40) K/uL Reagan # (Auto) 0.79 H (0.11-0.59) K/uL Eos # (Auto) 0.14 (0.00-0.50) K/uL Baso # (Auto) 0.03 (0.00-0.20) K/uL Immature Gran # (Auto) 0.02 (0.01-0.20) K/uL PT 10.6 (9.0-12.0) Seconds INR 1.0 (0.9-1.1) APTT 29 (21-31) Seconds PTT Ratio 1.1 Sodium 137 (136-145) mmol/L Potassium 3.6 (3.5-5.1) mmol/L Chloride 99 (98-107) mmol/L Carbon Dioxide 32 (21-32) mmol/L Anion Gap 6 (3-11) BUN 14 (6-23) mg/dl Creatinine 1.12 (0.6-1.2) mg/dl Est Cr Clr Drug Dosing 74.9 ml/min eGFR 54.23 BUN/Creatinine Ratio 12.5 (10-20) Glucose 130 H (70-99(Fasting)) mg/dl Calcium 9.9 (8.6-10.3) mg/dl Total Bilirubin 0.4 (0.2-1.0) mg/dl AST 19 (13-39) U/L ALT 17 (7-52) U/L Alkaline Phosphatase 83 (34-104) U/L Troponin I High Sens 3.0 (0-14) pg/ml Total Protein 8.8 H (6.0-8.3) gm/dl Albumin 4.5 (3.4-5.0) gm/dl Globulin 4.3 H (2.5-4.0) gm/dl Albumin/Globulin Ratio 1.0 (0.9-2) Lipase 52 (11-82) U/L Administered Medications Nitroglycerin (Nitroglycerin Sl 0.4 Mg/Tab Tab) 0.4 mg SL Q5M PRN PRN Reason: Chest Pain Stop: 10/30/24 19:37 Last Admin: 09/30/24 21:16 Dose: 0.4 mg Documented By: LUCIE Discontinued Medications Aspirin (Aspirin Chew 324 Mg) 243 mg PO NOW STA Stop: 09/30/24 19:39 Last Admin: 09/30/24 20:34 Dose: 243 mg Documented By: LUCIE Imaging Data Radiologist's Impression: Chest X-Ray 09/30/24 19:38 EXAM: Portable AP chest radiograph TECHNIQUE: AP portable radiograph of the chest was obtained. INDICATION: Shortness of breath Comparison: Chest radiograph August 10, 2023. FINDINGS: LINES and TUBES: None CARDIOVASCULAR: Cardiac silhouette is stably and mildly enlarged in size. LUNGS/PLEURA: Mild pulmonary vascular congestion is similar to previous. No focal consolidation identified. No significant pleural fluid. No discernible pneumothorax. OSSEOUS/OTHER: No displaced acute osseous process identified. IMPRESSION: Mild congestive changes of the cardiovascular system that are similar to the previous radiograph. Electronically signed by Dameon Leal 09-30-2024 8:50 PM Discharge Plan Visit Data Chief Complaint: Chest Pain Stated Complaint: CHEST PAIN ED Provider: Amado Mackenzie Discharge Problem: Chest pain, Abnormal dobutamine stress echocardiogram Forms Stand Alone Forms: [facility] Grok It - Smartphone RFID Prescriptions Prescriptions: No Action (DME) lancets [OneTouch UltraSoft 2 Lancet] 30 gauge misc See Rx Instructions .Route Qty: 100 0RF Rx Instructions: Test once daily (DME) blood-glucose meter [Contour Next Meter] Misc See Rx Instructions .Route Rx Instructions: As directed (DME) Contour Next Test Strips Strip See Rx Instructions .Route Qty: 100 1RF Rx Instructions: TEST ONCE DAILY; DX CODE-E11.9 lisinopril 40 mg Tablet 40 mg PO QAM ergocalciferol (vitamin D2) [Vitamin D2] 1,250 mcg (50,000 unit) capsule 1,250 mcg PO WK Rx Instructions: MONDAYS hydrochlorothiazide 12.5 mg Tablet 12.5 mg PO QAM fluticasone propionate [Flonase Allergy Relief] 50 mcg/actuation [place],Suspension 1 spray INTRANASAL DAILY PRN (Reason: Congestion) Rx Instructions: administer into each nostril levothyroxine [Synthroid] 175 mcg tablet 175 mcg PO QAM famotidine 20 mg tablet 20 mg PO BID metformin 500 mg tablet extended release 24 hr 500 mg PO QAM meclizine 25 mg tablet 12.5 - 25 mg PO BID PRN (Reason: Dizziness Or Vertigo) Referrals Referrals: Zoey Campbell CRNP [Primary Care Provider] - Discharge Problem: Chest pain Qualifiers: Chest pain type: unspecified Qualified Code(s): R07.9 - Chest pain, unspecified
[2024-09-30 19:54] LABS: Basophils # (auto) 0.03 K/uL (0.00-0.20); Basophils % (auto) 0.3 %; Eosinophils # (auto) 0.14 K/uL (0.00-0.50); Eosinophils % (auto) 1.3 %; Hematocrit (blood only) 42.8 % (37.0-47.0); Immature Granulocytes # (auto) 0.02 K/uL (0.01-0.20); Immature Granulocytes % (auto) 0.2 %; Lymphocytes % (auto) 28.1 %; Mean Corpuscular Hemoglobin 29.9 pg (25.0-34.0); Mean Corpuscular Hgb Conc 32.7 g/dL (32.0-36.0); Mean Corpuscular Volume 91.3 fL (80.0-100.0); Monocytes # (auto) 0.79 K/uL (0.11-0.59); Monocytes % (auto) 7.4 %; Neutrophils % (auto) 62.7 %; Platelet Count 335 K/uL (130-400); RDW Coefficient of Variation 13.6 % (11.5-14.5); RDW Standard Deviation 45.5 fL (36.4-46.3); Red Blood Count 4.69 M/uL (4.20-5.40); White Blood Count 10.68 K/ul (4.8-10.8)
[2024-09-30 20:13] LABS: Albumin Level 4.5 gm/dl (3.4-5.0); BUN Creatinine Ratio 12.5 (10-20); Bilirubin,Total 0.4 mg/dl (0.2-1.0); Calcium 9.9 mg/dl (8.6-10.3); Creatinine Clr Calc Pharmacy 74.9 ml/min; Globulin 4.3 gm/dl (2.5-4.0); Potassium 3.6 mmol/L (3.5-5.1); Total Protein 8.8 gm/dl (6.0-8.3)
[2024-09-30 20:26] LABS: Partial Thromboplastin Ratio 1.1; Partial Thromboplastin Time 29 Seconds (21-31); Prothrombin Time 10.6 Seconds (9.0-12.0)
[2024-09-30] MEDS: ASPIRIN CHEW 324 MG PO STA (20:34)
--- NOTE | 2024-09-30 20:50 | XRay Report ---
EXAM: Portable AP chest radiograph TECHNIQUE: AP portable radiograph of the chest was obtained. INDICATION: Shortness of breath Comparison: Chest radiograph August 10, 2023. FINDINGS: LINES and TUBES: None CARDIOVASCULAR: Cardiac silhouette is stably and mildly enlarged in size. LUNGS/PLEURA: Mild pulmonary vascular congestion is similar to previous. No focal consolidation identified. No significant pleural fluid. No discernible pneumothorax. OSSEOUS/OTHER: No displaced acute osseous process identified. IMPRESSION: Mild congestive changes of the cardiovascular system that are similar to the previous radiograph. Electronically signed by Dameon Leal 09-30-2024 8:50 PM
[2024-09-30] MEDS: NITROGLYCERIN SL 0.4 MG/TAB TAB SL PRN (21:16)
[2024-10-01] MEDS: ACETAMINOPHEN 1,000 MG/100 ML VIAL IV STA (00:01)
--- NOTE | 2024-10-01 01:02 | History & Physical Report ---
Date of Service October 01, 2024 Assessment & Plan (1) Chest pain: Plan: 64-year-old female with past medical history significant for type 2 diabetes, hypothyroidism, metabolic syndrome, morbid obesity, hyperlipidemia, hiatal hernia, hypertension, internal carotid aneurysm, asymptomatic stenosis of right vertebral artery, GERD, depression, general anxiety disorder comes in because of chest pain. Patient recently had dobutamine stress echo which demonstrated mild global hypokinesis at peak stress but was negative for dobutamine ECG for ischemia. And daily aspirin was recommended. Patient states she is having on and off chest pain for some time. But today the pain was more constant and thus reason she came to the ER. Pain is in the middle of the chest. Also has some abdominal discomfort. Feeling bloating. Some nausea. Has some shortness of breath on exertion. No fevers. No cough. Currently no headache. No runny nose or sore throat. She has alternating diarrhea and constipation. No blood in the stools. Micturating okay. Currently hemodynamics are okay. Chest pain Recent dobutamine stress echo showed mild global hypokinesis at peak stress. Negative dobutamine ECG for ischemia. And aspirin was recommended Initial troponin and EKG okay Will follow serial enzymes and repeat EKG will follow d dimer Monitor on telemetry N.p.o. for now Consult cardiology a.m. for further recommendation Epigastric tenderness Bloating LFTs okay Continue home Pepcid IV Protonix Will follow gallbladder ultrasound Type 2 diabetes Hold home p.o. medications Sliding scale Will for HbA1c was Hypothyroidism On Synthyroid Morbid obesity Counseling Patient says has plan for sleep study Hypertension On hydrochlorothiazide, lisinopril We will monitor History of left internal carotid saccular aneurysm measuring 3 mm X 3 mm Follows with [facility] neurosurgery DVT prophylaxis SCDs for now Disposition Telemetry Full code History of Present Illness Chief Complaint: Chest pain Primary Care Provider: ABHAY Ramirez 64-year-old female with past medical history significant for type 2 diabetes, hypothyroidism, metabolic syndrome, morbid obesity, hyperlipidemia, hiatal hernia, hypertension, internal carotid aneurysm, asymptomatic stenosis of right vertebral artery, GERD, depression, general anxiety disorder comes in because of chest pain. Patient recently had dobutamine stress echo which demonstrated mild global hypokinesis at peak stress but was negative for dobutamine ECG for ischemia. And daily aspirin was recommended. Patient states she is having on and off chest pain for some time. But today the pain was more constant and thus reason she came to the ER. Pain is in the middle of the chest. Also has some abdominal discomfort. Feeling bloating. Some nausea. Has some shortness of breath on exertion. No fevers. No cough. Currently no headache. No runny nose or sore throat. She has alternating diarrhea and constipation. No blood in the stools. Micturating okay. Currently hemodynamics are okay. Past medical history. As mentioned above Past surgical history. Bilateral carotid artery catheter placement. Bilateral carpal tunnel surgery. . Colonoscopy with biopsy. Dilatation curettage. EGD. EGD with biopsy. Laparoscopic appendectomy. Tonsillectomy and adenoidectomy trigger finger release. Social social history. . No smoking. No alcohol use. No drug use. Family history. Brother has asthma. Father had MT. Hypertension. Mother had hypertension. Maternal grandmother had stomach cancer. Maternal grandfather had mastoid cancer. Allergies Allergy/AdvReac Type Severity Reaction Status Date / Time cat dander Allergy Severe watery, Verified 09/30/24 19:58 itchy eyes, congestion, trouble breathing magnesium sulfate Allergy Severe Difficulty Verified 09/30/24 19:58 breathing, hives, hallucinations morphine Allergy Severe disoriented, Verified 09/30/24 19:58 decreased breathing Sulfa (Sulfonamide Allergy Intermediate Hives Verified 09/30/24 19:58 Antibiotics) mold Allergy Mild watery, Verified 09/30/24 19:58 itchy eyes tomato Allergy Mild hands/feet Verified 09/30/24 19:58 itch orange Allergy Unknown food Verified 09/30/24 19:58 sensitivity shrimp Allergy Unknown food Verified 09/30/24 19:58 sensitivity (per allergy testing) semaglutide [From Ozempic] AdvReac Severe abdominal Verified 09/30/24 19:58 pain, n/v, abdominal bloating empagliflozin AdvReac Intermediate yeast Verified 09/30/24 19:58 [From Jardiance] infection, emotional Home Medications Medication Instructions Recorded Confirmed Type lisinopril 40 mg tablet 40 mg PO QAM 04/04/19 09/30/24 History ergocalciferol (vitamin D2) 1,250 1,250 mcg PO WK 11/27/22 09/30/24 History mcg (50,000 unit) capsule (Vitamin D2) hydrochlorothiazide 12.5 mg tablet 12.5 mg PO QAM 02/01/23 09/30/24 History lancets 30 gauge (OneTouch #100 ea 05/14/23 09/30/24 Rx UltraSoft 2 Lancet) blood sugar diagnostic (Contour #100 ea 07/19/23 09/30/24 Rx Next Test Strips) blood-glucose meter (Contour Next 07/19/23 09/30/24 History Meter) fluticasone propionate 50 1 spray intranasal DAILY PRN 08/11/23 09/30/24 History mcg/actuation nasal Congestion spray,suspension (Flonase Allergy Relief) levothyroxine 175 mcg tablet 175 mcg PO QAM 09/06/24 09/30/24 History (Synthroid) famotidine 20 mg tablet 20 mg PO BID 09/30/24 09/30/24 History meclizine 25 mg tablet 12.5 - 25 mg PO BID PRN Dizziness 09/30/24 09/30/24 History Or Vertigo metformin 500 mg tablet,extended 500 mg PO QAM 09/30/24 09/30/24 History release 24 hr Past Med/Surg History Problem List (Updated 09/30/24 @ 22:44 by Amado Mackenzie MD) Abnormal dobutamine stress echocardiogram (Acute) Chest pain (Acute) Encounter for pre-operative examination Sensorineural hearing loss, bilateral Tinnitus, bilateral Dizziness and giddiness Abdominal pain Dysphagia Cardiovascular event risk On statin therapy Hx of vertigo "comes and goes" treated with ENT and Physical Therapy with no diagnosis. Aneurysm of left internal carotid artery pt unaware, states she is only aware of the small brain aneurysm. Diabetes mellitus HTN (hypertension) (Acute) Rectal bleeding Brain aneurysm "very small and monitoring, MRI in 1 year"--angiogram 12/24/22 @ [facility] Obesity (BMI 30-39.9) Vitamin D deficiency GERD (gastroesophageal reflux disease) Hypothyroidism (acquired) Right upper quadrant abdominal pain Atypical chest pain (Acute) Dyslipidemia Medical History Aneurysm of left internal carotid artery "I've tried to track that down and they said no" will be seeing [facility] 09/06/24 Dyslipidemia Brain aneurysm "very small and monitoring" --angiogram 12/24/22 @ [facility] Neurology - doesn't need angiogram until 2025 as per patient Alternating constipation and diarrhea Dysphagia Abdominal pain Hx of motion sickness Diabetes mellitus, type 2 NIDDM Morbid obesity with BMI of 45.0-49.9, adult Vertigo Hypertension GERD (gastroesophageal reflux disease) Fatty liver Hiatal hernia Nausea and vomiting after administration of anesthetic agent has used the scope patch in the past with success History of anesthesia reaction difficulty waking History of colon polyps Hypothyroidism Surgical History History of cataract surgery Bilateral S/P carpal tunnel release left hand (MAC anesthesia) right hand (local anesthesia) History of angiography angiogram done of brain (2018 & 12/24/[address] [facility]) History of colonoscopy History of esophagogastroduodenoscopy (EGD) History of section x1 History of dilatation and curettage History of wisdom tooth extraction History of tooth extraction History of tonsillectomy and adenoidectomy History of appendectomy Family History Sister Nausea and vomiting after administration of anesthetic agent Family history of diabetes mellitus Breast cancer, Onset Age: 40 Father Myocardial infarction, Onset Age: 64 from heart attack Mother Myocardial infarction, Onset Age: 78 Grandmother (Maternal) History of stomach cancer Denies family history of Ovarian cancer Prostate cancer Colorectal cancer Social History Smoking Status: Never smoker Second Hand Exposure: No; Do You Dip or Chew Tobacco: No; Hx Alcohol Use: No Hx Substance Use: No Preferred Language: Taiwanese Communication Ability: Effective Visual Impairment: No Limitations Hearing Ability: Normal Desulfurizer Operator Required: No Beliefs That Will Affect Care: None marital status: Current Living Situation: Spouse Current Living Situation Comment: Lives with and daughter current occupational status: retired 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 Archer) during the past year weight has: increased > 10 lbs Dental Care, Regularly: Yes Physical Activity Frequency: Daily Seatbelt Use: always Sunscreen Use: Yes Assistive Devices: Glasses Review of Systems Review of Systems: All systems reviewed & are unremarkable except as noted in HPI & below Physical Exam Physical Exam: General- Not in acute distress Head- atraumatic Eyes- PERRL. ENT- oropharynx clear Neck- supple, no JVD. Lungs- clear to auscultation no wheezing or crackles. Heart- regular rate and rhythm; no murmur, no gallop. Abdomen- normal bowel sounds, soft, mild epigastric tenderness, no distension. Extremities- trace pretibial edema, no erythema seen Neuro- alert, oriented PERRL, no facial palsy; no dysarthria; moves extremities Results & Data Results & Data Vital Signs (Past 12 Hours) Vital Signs Temp Pulse Pulse Resp BP BP Pulse Ox 10/01/24 00:05 66 16 125/69 97 09/30/24 23:45 63 09/30/24 23:05 64 18 166/77 H 95 09/30/24 21:30 86 17 161/78 H 94 09/30/24 21:14 84 18 195/77 H 95 09/30/24 19:38 70 18 97 09/30/24 19:35 82 09/30/24 19:19 36.6 C 75 18 168/83 H 98 O2 Del Method 10/01/24 00:05 Room Air 09/30/24 23:45 09/30/24 23:05 Room Air 09/30/24 21:30 Room Air 09/30/24 21:14 Room Air 09/30/24 19:38 Room Air 09/30/24 19:35 09/30/24 19:19 Room Air Diagnostic Findings Laboratory Results WBC 10.68 K/ul (4.8-10.8) 09/30/24 19:32 RBC 4.69 M/uL (4.20-5.40) 09/30/24 19:32 Hgb 14.0 g/dl (12.0-16.0) 09/30/24 19:32 Hct 42.8 % (37.0-47.0) 09/30/24 19:32 MCV 91.3 fL (80.0-100.0) 09/30/24 19:32 MCH 29.9 pg (25.0-34.0) 09/30/24 19:32 MCHC 32.7 g/dL (32.0-36.0) 09/30/24 19:32 RDW Std Deviation 45.5 fL (36.4-46.3) 09/30/24 19:32 RDW Coeff of Mitul 13.6 % (11.5-14.5) 09/30/24 19:32 Plt Count 335 K/uL (130-400) 09/30/24 19:32 MPV 10.0 fL (9.4-12.4) 09/30/24 19:32 Immature Gran % (Auto) 0.2 % 09/30/24 19:32 Neut % (Auto) 62.7 % 09/30/24 19:32 Lymph % (Auto) 28.1 % 09/30/24 19:32 [place] % (Auto) 7.4 % 09/30/24 19:32 Eos % (Auto) 1.3 % 09/30/24 19:32 Baso % (Auto) 0.3 % 09/30/24 19:32 Neut # (Auto) 6.70 K/uL (1.40-6.50) H 09/30/24 19:32 Lymph # (Auto) 3.00 K/uL (1.20-3.40) 09/30/24 19:32 [place] # (Auto) 0.79 K/uL (0.11-0.59) H 09/30/24 19:32 Eos # (Auto) 0.14 K/uL (0.00-0.50) 09/30/24 19:32 Baso # (Auto) 0.03 K/uL (0.00-0.20) 09/30/24 19:32 Immature Gran # (Auto) 0.02 K/uL (0.01-0.20) 09/30/24 19:32 PT 10.6 Seconds (9.0-12.0) 09/30/24 19:32 INR 1.0 (0.9-1.1) 09/30/24 19:32 APTT 29 Seconds (21-31) 09/30/24 19:32 PTT Ratio 1.1 09/30/24 19:32 Sodium 137 mmol/L (136-145) 09/30/24 19:32 Potassium 3.6 mmol/L (3.5-5.1) 09/30/24 19:32 Chloride 99 mmol/L (98-107) 09/30/24 19:32 Carbon Dioxide 32 mmol/L (21-32) 09/30/24 19:32 Anion Gap 6 (3-11) 09/30/24 19:32 BUN 14 mg/dl (6-23) 09/30/24 19:32 Creatinine 1.12 mg/dl (0.6-1.2) 09/30/24 19:32 Est Cr Clr Drug Dosing 74.9 ml/min 09/30/24 19:32 eGFR 54.23 09/30/24 19:32 BUN/Creatinine Ratio 12.5 (10-20) 09/30/24 19:32 Glucose 130 mg/dl (70-99(Fasting)) H 09/30/24 19:32 Calcium 9.9 mg/dl (8.6-10.3) 09/30/24 19:32 Total Bilirubin 0.4 mg/dl (0.2-1.0) 09/30/24 19:32 AST 19 U/L (13-39) 09/30/24 19:32 ALT 17 U/L (7-52) 09/30/24 19:32 Alkaline Phosphatase 83 U/L (34-104) 09/30/24 19:32 Troponin I High Sens 3.0 pg/ml (0-14) 09/30/24 19:32 Total Protein 8.8 gm/dl (6.0-8.3) H 09/30/24 19:32 Albumin 4.5 gm/dl (3.4-5.0) 09/30/24 19:32 Globulin 4.3 gm/dl (2.5-4.0) H 09/30/24 19:32 Albumin/Globulin Ratio 1.0 (0.9-2) 09/30/24 19:32 Lipase 52 U/L (11-82) 09/30/24 19:32 Impressions Chest X-Ray 09/30/24 19:38 EXAM: Portable AP chest radiograph TECHNIQUE: AP portable radiograph of the chest was obtained. INDICATION: Shortness of breath Comparison: Chest radiograph August 10, 2023. FINDINGS: LINES and TUBES: None CARDIOVASCULAR: Cardiac silhouette is stably and mildly enlarged in size. LUNGS/PLEURA: Mild pulmonary vascular congestion is similar to previous. No focal consolidation identified. No significant pleural fluid. No discernible pneumothorax. OSSEOUS/OTHER: No displaced acute osseous process identified. IMPRESSION: Mild congestive changes of the cardiovascular system that are similar to the previous radiograph. Electronically signed by Dameon Leal 09-30-2024 8:50 PM ECG Additional Comments: ECG. Normal sinus rhythm rate of 80. No significant change was found. Code Status & VTE Plan VTE Prophylaxis Plan VTE Prophylaxis will be ordered: Yes (1) Chest pain Chest pain type: unspecified Qualified Code(s): R07.9 - Chest pain, unspecified
[2024-10-01] MEDS ORDERED: GLUCAGON FOR INJ 1 MG VIAL SQ PRN (03:05)
[2024-10-01] MEDS ORDERED: CARBOHYDRATES FOR HYPOGLYCEMIA PO PRN (03:05)
[2024-10-01] MEDS ORDERED: POLYETHYLENE (MIRALAX) 17 GM PACK PO PRN (03:05)
[2024-10-01] MEDS ORDERED: MECLIZINE HCL 25 MG TAB PO PRN (03:05)
[2024-10-01] MEDS ORDERED: FLUTICASONE PROPIONATE NA SPR 16 GM BTL PRN (03:05)
[2024-10-01] MEDS ORDERED: DEXTROSE 50% 50 ML SYRINGE IV PRN (03:05)
[2024-10-01] MEDS ORDERED: GLUCOSE 40% GEL 15 GM TUBE PO PRN (03:05)
[2024-10-01] MEDS ORDERED: NITROGLYCERIN SL 0.4 MG/TAB TAB SL PRN (03:05)
[2024-10-01] MEDS ORDERED: GLUCOSE 10 TAB/TUBE PO PRN (03:05)
[2024-10-01 05:16] LABS: Basophils # (auto) 0.03 K/uL (0.00-0.20); Basophils % (auto) 0.4 %; Eosinophils # (auto) 0.16 K/uL (0.00-0.50); Eosinophils % (auto) 1.9 %; Hematocrit (blood only) 39.2 % (37.0-47.0); Hemoglobin 13.1 g/dl (12.0-16.0); Immature Granulocytes # (auto) 0.02 K/uL (0.01-0.20); Immature Granulocytes % (auto) 0.2 %; Lymphocytes # (auto) 2.51 K/uL (1.20-3.40); Lymphocytes % (auto) 30.3 %; Mean Corpuscular Hemoglobin 30.7 pg (25.0-34.0); Mean Corpuscular Hgb Conc 33.4 g/dL (32.0-36.0); Mean Corpuscular Volume 91.8 fL (80.0-100.0); Mean Platelet Volume 9.9 fL (9.4-12.4); Monocytes # (auto) 0.53 K/uL (0.11-0.59); Monocytes % (auto) 6.4 %; Neutrophils # (auto) 5.04 K/uL (1.40-6.50); Neutrophils % (auto) 60.8 %; Platelet Count 272 K/uL (130-400); RDW Coefficient of Variation 13.5 % (11.5-14.5); RDW Standard Deviation 45.4 fL (36.4-46.3); Red Blood Count 4.27 M/uL (4.20-5.40); White Blood Count 8.29 K/ul (4.8-10.8)
[2024-10-01 05:32] LABS: Anion Gap 7 (3-11); BUN Creatinine Ratio 14.9 (10-20); Blood Urea Nitrogen 14 mg/dl (6-23); Calcium 9.4 mg/dl (8.6-10.3); Carbon Dioxide 28 mmol/L (21-32); Chloride 104 mmol/L (98-107); Creatinine Clr Calc Pharmacy 87.8 ml/min; Glucose 115 mg/dl (70-99(Fasting)); Magnesium 1.8 mg/dl (1.7-2.4); Potassium 3.8 mmol/L (3.5-5.1); Sodium 139 mmol/L (136-145)
[2024-10-01 05:39] LABS: Troponin I High Sensitivity < 2.3 pg/ml (0-14)
[2024-10-01] MEDS: LEVOTHYROXINE SODIUM 175 MCG TABLET PO SCH (05:48)
[2024-10-01] MEDS: INSULIN ASPART PER UNIT CHARGE SC SCH ×2 (05:48→17:07)
--- NOTE | 2024-10-01 06:08 | Ultrasound Report ---
EXAM: US gallbladder CLINICAL HISTORY: Abd pain, bloating. TECHNIQUE: Ultrasound examination of the RUQ abdomen was performed using a high-frequency transducer. Scanning was performed with the patient in supine position. COMPARISON: 04/12/2023 US. FINDINGS: Liver: Liver size: Increased echogenicity measuring up to 21 cm in length, mild interval regression. No hepatic mass identified. No evidence of focal lesions, cysts, or masses. Hepatic vasculature appears normal. Gallbladder: Gallbladder size:.The gallbladder is visualized and appears normal in size and shape. No gallstones, wall thickening 1.6 mm, or pericholecystic fluid noted. No evidence of gallbladder wall edema or signs of acute cholecystitis. Biliary Tree: Common bile duct diameter: Common bile duct is within normal limits in caliber and not dilated measuring 3.8 mm. No evidence of choledocholithiasis or biliary obstruction. Right Kidney: Right kidney size: Right kidney appears normal in size with preserved corticomedullary differentiation measuirng 12.08 cm. No evidence of hydronephrosis, renal cysts, or masses. IMPRESSION: 1. Hepatomegaly with hepatic steatosis, mild interval regression. 2. Unremarkable gallbladder. 3. No other changes since the last study. RECOMMENDATIONS: Clinical correlation with symptoms. Electronically signed by Thomas Whelan 10-01-2024 06:07 AM
[2024-10-01 08:22] LABS: Estimated Average Glucose 140 mg/dl; Hemoglobin A1C 6.5 % (4.5-5.6)
[2024-10-01 08:22] LABS: D Dimer 410 ug/L FEU (0-500)
[2024-10-01] MEDS: FAMOTIDINE 20 MG TAB PO SCH (08:45)
[2024-10-01] MEDS: PANTOprazole 40 MG/10 ML SYR IV SCH (08:46)
[2024-10-01] MEDS: lisinopril 40 MG TAB PO SCH (08:46)
[2024-10-01] MEDS: hydroCHLOROthiazide 25 MG TAB PO SCH (08:46)
--- NOTE | 2024-10-01 09:34 | Cardiology Consultation ---
Date of Consultation October 01, 2024 Assessment & Plan (1) Chest pain: (2) Abnormal dobutamine stress echocardiogram: Plan 1. Chest pain: Her chest pain has been atypical in the past, it continues to be and is not relieved by nitroglycerin. I suspect it is noncardiac however she does have a recent abnormal stress test. 2. Abnormal stress echo: She had left ventricular dilatation at peak exercise on her stress echo, this can be indicative of severe disease (such as left main disease) despite the ECG portion of the test being negative. At this point she has been seen multiple times for chest discomfort, has had an extensive evaluation without diagnosis, and now has a finding consistent with significant coronary artery disease. My recommendation would be to do a cardiac catheterization on October 02, 2024. She is agreeable. History of Present Illness Reason for Consultation: Chest discomfort, abnormal stress test Attending Physician: Jl Pisano MD History of Present Illness This is a 64-year-old woman who has a history of diabetes mellitus, obesity, hypertension, GERD as well as atherosclerotic disease. She was seen in the [facility] emergency room for chest discomfort in November 2022 which was described as bilateral upper chest pain radiating to bilateral neck locations. She was hypertensive and diaphoretic. She did have a CT angiogram which showed no evidence of pulmonary emboli or dissection. Her troponin measurements were within normal range and her electrocardiogram did not show ischemic change. It seemed unlikely that these symptoms were due to myocardial ischemia. Of note however she does have a family history of coronary artery disease although not premature disease, and she has a carotid artery aneurysm for which [facility] is following. She has right vertebral artery stenosis identified on November 27, 2002. She was seen in our office on September 06, 2024 for ongoing chest discomfort, it appeared to be atypical for coronary artery disease however a dobutamine stress echo was done on September 25, 2024. This was abnormal with global hypokinesis at peak stress and normal baseline left ventricular size and function. She presented to the emergency room on September 30, 2024 with chest discomfort. This was not relieved with nitroglycerin. Her presenting electrocardiogram is unremarkable and high-sensitivity troponin measurements x 2 are normal (as they have been in the past). At the time of my evaluation she has continued to have atypical chest discomfort which she describes from her upper abdomen up to her throat from the precordial location. She has been mostly at rest and has not been eating food. Allergies Allergy/AdvReac Type Severity Reaction Status Date / Time cat dander Allergy Severe watery, Verified 09/30/24 19:58 itchy eyes, congestion, trouble breathing magnesium sulfate Allergy Severe Difficulty Verified 09/30/24 19:58 breathing, hives, hallucinations morphine Allergy Severe disoriented, Verified 09/30/24 19:58 decreased breathing Sulfa (Sulfonamide Allergy Intermediate Hives Verified 09/30/24 19:58 Antibiotics) mold Allergy Mild watery, Verified 09/30/24 19:58 itchy eyes tomato Allergy Mild hands/feet Verified 09/30/24 19:58 itch orange Allergy Unknown food Verified 09/30/24 19:58 sensitivity shrimp Allergy Unknown food Verified 09/30/24 19:58 sensitivity (per allergy testing) semaglutide [From Ozempic] AdvReac Severe abdominal Verified 09/30/24 19:58 pain, n/v, abdominal bloating empagliflozin AdvReac Intermediate yeast Verified 09/30/24 19:58 [From Jardiance] infection, emotional Home Medications Medication Instructions Recorded Confirmed Type lisinopril 40 mg tablet 40 mg PO QAM 04/04/19 09/30/24 History ergocalciferol (vitamin D2) 1,250 1,250 mcg PO WK 11/27/22 09/30/24 History mcg (50,000 unit) capsule (Vitamin D2) hydrochlorothiazide 12.5 mg tablet 12.5 mg PO QAM 02/01/23 09/30/24 History lancets 30 gauge (OneTouch #100 ea 05/14/23 09/30/24 Rx UltraSoft 2 Lancet) blood sugar diagnostic (Contour #100 ea 07/19/23 09/30/24 Rx Next Test Strips) blood-glucose meter (Contour Next 07/19/23 09/30/24 History Meter) fluticasone propionate 50 1 spray intranasal DAILY PRN 08/11/23 09/30/24 History mcg/actuation nasal Congestion spray,suspension (Flonase Allergy Relief) levothyroxine 175 mcg tablet 175 mcg PO QAM 09/06/24 09/30/24 History (Synthroid) famotidine 20 mg tablet 20 mg PO BID 09/30/24 09/30/24 History meclizine 25 mg tablet 12.5 - 25 mg PO BID PRN Dizziness 09/30/24 09/30/24 History Or Vertigo metformin 500 mg tablet,extended 500 mg PO QAM 09/30/24 09/30/24 History release 24 hr Patient History Medical History Aneurysm of left internal carotid artery "I've tried to track that down and they said no" will be seeing [facility] [place] Cardiology 09/06/24 Dyslipidemia Brain aneurysm "very small and monitoring" --angiogram 12/24/22 @ [facility] Neurology - doesn't need angiogram until 2025 as per patient Alternating constipation and diarrhea Dysphagia Abdominal pain Hx of motion sickness Diabetes mellitus, type 2 NIDDM Morbid obesity with BMI of 45.0-49.9, adult Vertigo Hypertension GERD (gastroesophageal reflux disease) Fatty liver Hiatal hernia Nausea and vomiting after administration of anesthetic agent has used the scope patch in the past with success History of anesthesia reaction difficulty waking History of colon polyps Hypothyroidism Surgical History History of cataract surgery Bilateral S/P carpal tunnel release left hand (MAC anesthesia) right hand (local anesthesia) History of angiography angiogram done of brain (2018 & 12/24/22 at [facility]) History of colonoscopy History of esophagogastroduodenoscopy (EGD) History of section x1 History of dilatation and curettage History of wisdom tooth extraction History of tooth extraction History of tonsillectomy and adenoidectomy History of appendectomy Family History Sister Nausea and vomiting after administration of anesthetic agent Family history of diabetes mellitus Breast cancer, Onset Age: 40 Father Myocardial infarction, Onset Age: 64 from heart attack Mother Myocardial infarction, Onset Age: 78 Grandmother (Maternal) History of stomach cancer Denies family history of Ovarian cancer Prostate cancer Colorectal cancer Social History Smoking Status: Never smoker Second Hand Exposure: No; Do You Dip or Chew Tobacco: No; Hx Alcohol Use: No Hx Substance Use: No Preferred Language: Italian Communication Ability: Effective Visual Impairment: No Limitations Hearing Ability: Normal Horse Race St[employer] Required: No Beliefs That Will Affect Care: None marital status: Current Living Situation: Spouse Current Living Situation Comment: Lives with and daughter current occupational status: retired 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 Archer) during the past year weight has: increased > 10 lbs Dental Care, Regularly: Yes Physical Activity Frequency: Daily Seatbelt Use: always Sunscreen Use: Yes Assistive Devices: Glasses Review of Systems Review of Systems: All systems reviewed & are unremarkable except as noted in HPI & below Physical Exam Physical Exam: Constitutional: Alert, cooperative and in no distress. She is overweight. HEENT: Unremarkable Neck: No jugular venous distention, carotid pulses are normal and equal bilaterally without bruits. Pulmonary: Clear to auscultation bilaterally. Cardiac: Regular rhythm with no murmur, gallop or rub. Abdomen: Soft, nontender with normal bowel sounds. Extremities: No edema. Neurologic: No focal findings. Skin: No rash, ecchymoses or petechiae. Results & Data Vital Signs (Past 12 Hours) Vital Signs Temp Pulse Pulse Resp BP BP Pulse Ox 10/01/24 08:28 36.4 C L 57 L 20 130/61 97 10/01/24 05:10 64 10/01/24 03:25 36.4 C L 66 18 129/79 95 10/01/24 02:33 65 91 10/01/24 02:31 16 125/62 10/01/24 02:31 125/62 10/01/24 02:31 125/62 10/01/24 02:31 125/62 10/01/24 02:30 71 10/01/24 02:06 61 98 10/01/24 02:02 140/66 10/01/24 02:02 140/66 10/01/24 01:57 61 15 93 10/01/24 01:51 59 L 18 94 10/01/24 01:27 78 13 10/01/24 01:27 69 16 127/76 96 10/01/24 01:22 127/76 10/01/24 01:22 127/76 10/01/24 01:06 67 20 93 10/01/24 01:00 65 94 10/01/24 00:33 65 17 97 10/01/24 00:09 83 23 97 10/01/24 00:05 125/69 10/01/24 00:05 125/69 10/01/24 00:05 66 16 125/69 97 09/30/24 23:45 63 09/30/24 23:30 67 17 96 09/30/24 23:05 64 18 166/77 H 95 09/30/24 23:00 67 22 96 09/30/24 22:42 73 20 96 09/30/24 22:34 166/77 H 09/30/24 22:27 71 21 97 09/30/24 22:00 70 16 96 09/30/24 21:48 69 16 95 O2 Del Method 10/01/24 08:28 Room Air 10/01/24 05:10 10/01/24 03:25 Room Air 10/01/24 02:33 10/01/24 02:31 10/01/24 02:31 10/01/24 02:31 10/01/24 02:31 10/01/24 02:30 10/01/24 02:06 10/01/24 02:02 10/01/24 02:02 10/01/24 01:57 10/01/24 01:51 10/01/24 01:27 10/01/24 01:27 Room Air 10/01/24 01:22 10/01/24 01:22 10/01/24 01:06 10/01/24 01:00 10/01/24 00:33 10/01/24 00:09 10/01/24 00:05 10/01/24 00:05 10/01/24 00:05 Room Air 09/30/24 23:45 09/30/24 23:30 09/30/24 23:05 Room Air 09/30/24 23:00 09/30/24 22:42 09/30/24 22:34 09/30/24 22:27 09/30/24 22:00 09/30/24 21:48 Laboratory Results Cardiac Enzymes 09/30/24 10/01/24 Range/Units 19:32 04:55 AST 19 (13-39) U/L Troponin I High Sens 3.0 < 2.3 (0-14) pg/ml Coagulation 09/30/24 Range/Units 19:32 PT 10.6 (9.0-12.0) Seconds APTT 29 (21-31) Seconds CBC 09/30/24 10/01/24 Range/Units 19:32 04:55 WBC 10.68 8.29 (4.8-10.8) K/ul RBC 4.69 4.27 (4.20-5.40) M/uL Hgb 14.0 13.1 (12.0-16.0) g/dl Hct 42.8 39.2 (37.0-47.0) % Plt Count 335 272 (130-400) K/uL Neut # (Auto) 6.70 H 5.04 (1.40-6.50) K/uL Lymph # (Auto) 3.00 2.51 (1.20-3.40) K/uL Stoddard # (Auto) 0.79 H 0.53 (0.11-0.59) K/uL Eos # (Auto) 0.14 0.16 (0.00-0.50) K/uL Baso # (Auto) 0.03 0.03 (0.00-0.20) K/uL Comprehensive Metabolic Panel 09/30/24 10/01/24 Range/Units 19:32 04:55 Sodium 137 139 (136-145) mmol/L Potassium 3.6 3.8 (3.5-5.1) mmol/L Chloride 99 104 (98-107) mmol/L Carbon Dioxide 32 28 (21-32) mmol/L BUN 14 14 (6-23) mg/dl Creatinine 1.12 0.94 (0.6-1.2) mg/dl Glucose 130 H 115 H (70-99(Fasting)) mg/dl Calcium 9.9 9.4 (8.6-10.3) mg/dl AST 19 (13-39) U/L ALT 17 (7-52) U/L Alkaline Phosphatase 83 (34-104) U/L Total Protein 8.8 H (6.0-8.3) gm/dl Albumin 4.5 (3.4-5.0) gm/dl Intake and Output 09/30/24 10/01/24 10/01/24 22:59 06:59 14:59 Intake Total 100 / 100 Balance 100 / 100 Intake: IV 100 / 100 Acetaminophen 1,000 mg In 100 100 / 100 ml @ 400 mls/hr IV NOW STA Rx#: [id number] Other: Weight 137.2 kg 137 kg Weight Measurement Method Chair Scale Estimated by Patient Diagnostic Findings Telemetry: Sinus rhythm, no significant arrhythmia. PG Care Time/CCT Total # of Minutes Spent Total Time Spent with Patient: Total time spent is greater than 50% in coordination of care (as documented) at patient's floor/unit and/or counseling patient: Coding Level of Care Code 10135 INT INP/OBS CARE 3/75MIN Diagnoses Chest pain R07.9 Chest pain type: unspecified Abnormal dobutamine stress echocardiogram R94.39 (1) Chest pain Chest pain type: unspecified Qualified Code(s): R07.9 - Chest pain, unspecified
--- NOTE | 2024-10-01 11:37 | CT Scan Report ---
EXAM: CT Abdomen and Pelvis Without Intravenous Contrast INDICATION: Pain TECHNIQUE: Axial computed tomography images of the abdomen and pelvis without intravenous contrast. Sagittal and coronal reformatted images were created and reviewed. This CT exam was performed using one or more of the following dose reduction techniques: automated exposure control, adjustment of the mA and/or kV according to patient size, and/or use of iterative reconstruction technique. COMPARISON: 05/04/2017 FINDINGS: Limitations: None. Lung bases: No abnormality noted. Pleural space: No visualized pleural effusion or pneumothorax. Heart: No abnormality noted. Mediastinum: No abnormality noted. ABDOMEN: Liver: Lack of intravenous contrast limits detection of some masses. No abnormality noted. Gallbladder and bile ducts: No calcified stones or surrounding fluid. No ductal dilation. Pancreas: No pancreatic mass, calcification, inflammation or ductal dilation noted. Spleen: No significant abnormality noted. Adrenals: No significant abnormality noted. Kidneys and ureters: Stable mild bilateral renal cortical scarring. No stones or hydronephrosis. Stomach and bowel: No distension or mucosal thickening. No inflammation noted. PELVIS: Appendix: Probable appendectomy. Bladder: Appears normal for the degree of filling. No stones or inflammation. No large mass. Masses may not be detected in the absence of opacification. Reproductive: No abnormalities noted. ABDOMEN and PELVIS: Intraperitoneal space: No free air. No significant fluid collection. Bones/joints: Degenerative changes noted throughout the spine. No acute osseous abnormality seen. Soft tissues: No significant abnormality noted. Vasculature: Atherosclerotic calcification of the aorta and branches. No aneurysm. Lymph nodes: Stable shotty nonenlarged likely reactive jacqueline hepatis lymph nodes. No pathologically enlarged nodes. IMPRESSION: No significant abnormality noted. No interval change. ACT 112: N/A Electronically signed by Crystal Luque 10-01-2024 11:36 AM
--- NOTE | 2024-10-01 13:16 | Electrocardiogram Report ---
Test Reason : Blood Pressure : */* mmHG Vent. Rate : 80 BPM Atrial Rate : 80 BPM P-R Int : 170 ms QRS Dur : 70 ms QT Int : 344 ms P-R-T Axes : 48 22 47 degrees QTcB Int : 396 ms Normal sinus rhythm Low voltage QRS Cannot rule out Anterior infarct , age undetermined Abnormal ECG When compared with ECG of 06-Sep-2024 08:29, No significant change was found Confirmed by Kan Vasquez ([id number]) on 10/01/2024 1:16:11 PM Referred By: REFERRED SELF Confirmed By: Kan Vasquez
[2024-10-01] MEDS ORDERED: Nursing to Pharmacy Communication SCH (13:45)
[2024-10-02] MEDS: ACETAMINOPHEN 325 MG TAB PO PRN (04:16)
[2024-10-02 05:48] LABS: Hematocrit (blood only) 40.6 % (37.0-47.0); Hemoglobin 13.6 g/dl (12.0-16.0); Mean Corpuscular Hemoglobin 30.6 pg (25.0-34.0); Mean Corpuscular Hgb Conc 33.5 g/dL (32.0-36.0); Mean Corpuscular Volume 91.2 fL (80.0-100.0); Mean Platelet Volume 9.8 fL (9.4-12.4); Platelet Count 295 K/uL (130-400); RDW Coefficient of Variation 13.4 % (11.5-14.5); RDW Standard Deviation 45.2 fL (36.4-46.3); Red Blood Count 4.45 M/uL (4.20-5.40); White Blood Count 8.44 K/ul (4.8-10.8)
[2024-10-02 06:05] LABS: Albumin Globulin Ratio 1.1 (0.9-2); BUN Creatinine Ratio 15.2 (10-20); Bilirubin,Total 0.5 mg/dl (0.2-1.0); Calcium 9.8 mg/dl (8.6-10.3); Creatinine Clr Calc Pharmacy 73.7 ml/min; Globulin 3.7 gm/dl (2.5-4.0); Magnesium 1.8 mg/dl (1.7-2.4); Phosphorus 3.6 mg/dl (2.5-4.9); Potassium 4.4 mmol/L (3.5-5.1); Total Protein 7.7 gm/dl (6.0-8.3)
--- NOTE | 2024-10-02 09:42 | Pre Anesthesia Assessment ---
Date of Service October 02, 2024 Pre Sedation Assessment Vital Signs Temp Pulse Pulse Resp BP Pulse Ox O2 Del Method 10/02/24 09:34 75 16 176/82 H 98 Room Air 10/02/24 07:17 36.8 C 68 17 141/70 H 96 Room Air 10/02/24 07:13 62 10/02/24 04:15 36.9 C 74 18 145/74 H 95 Room Air 10/01/24 23:50 69 10/01/24 23:30 36.9 C 74 16 124/61 95 Room Air 10/01/24 19:49 36.7 C 73 18 161/73 H 96 Room Air 10/01/24 15:49 36.9 C 76 20 148/72 H 97 Room Air 10/01/24 15:39 76 10/01/24 11:43 37.0 C 72 20 169/78 H 93 Room Air 10/01/24 10:15 36.5 C 66 20 137/77 96 Room Air Cardiovascular RRR, no murmur, no edema Respiratory normal respiratory effort, lungs clear to auscultation Pre-Sedation Airway Assessment Smoking Status: Never smoker Short, Thick Neck: No Thyromental Distance: > or= 3.5 Finger Breadths Oral Cavity: + WNL Mallampati Class: III ASA: ASA3 NPO Status Date of Last Intake of Fluids: 10/01/24 Time of Last Intake of Fluids: 20:00 Date of Last Intake of Solid Food: 10/01/24 Time of Last Intake of Solid Foods: 20:00 Notes The planned sedation has been discussed with the patient. Informed Consent was obtained. I have identified the patient, determined the appropriateness of sedation and have assessed the patient immediately prior to the procedure. All medicine(s) and interventions are by my order.
[2024-10-02] MEDS: ASPIRIN 81 MG CHEW ONE (09:45)
[2024-10-02] MEDS: fentaNYL citrate PF 100 MCG/2 ML VIAL ONE (10:20)
[2024-10-02] MEDS: niCARdipine 2,000 MCG/20 ML SYR ONE (10:21)
[2024-10-02] MEDS: hydrALAZINE HCL 20 MG/ML VIAL ONE (10:22)
[2024-10-02] MEDS: ONDANSETRON INJ 2 MG/ML 2 ML VIAL ONE (10:22)
[2024-10-02] MEDS: NITROGLYCERIN/D5W 100MCG/ML 20ML SYR ONE (10:22)
[2024-10-02] MEDS: diphenhydrAMINE 50 MG/ML VIAL ONE (10:22)
[2024-10-02] MEDS: MIDAZOLAM HCL 1 MG/ML 2ML VIAL ONE (10:32)
[2024-10-02] MEDS: HEPARIN (PORCINE) 1000 UNIT/ML 10 ML (CATH LAB USE ONLY) ONE (10:32)
[2024-10-02] MEDS: OPTIRAY 350 ONE (10:32)
--- NOTE | 2024-10-02 10:36 | Post Anesthesia Assessment ---
Date of Service October 02, 2024 Post Sedation Assessment Vital Signs Temp Pulse Pulse Resp BP Pulse Ox O2 Del Method 10/02/24 09:34 75 16 176/82 H 98 Room Air 10/02/24 07:17 36.8 C 68 17 141/70 H 96 Room Air 10/02/24 07:13 62 10/02/24 04:15 36.9 C 74 18 145/74 H 95 Room Air 10/01/24 23:50 69 10/01/24 23:30 36.9 C 74 16 124/61 95 Room Air 10/01/24 19:49 36.7 C 73 18 161/73 H 96 Room Air 10/01/24 15:49 36.9 C 76 20 148/72 H 97 Room Air 10/01/24 15:39 76 10/01/24 11:43 37.0 C 72 20 169/78 H 93 Room Air Recovery Score Activity: Moves 4 extremities Respiration: Deep Breath/Cough Circulation: +/-20% PreAnes Value Consciousness: Fully Awake Oxygen Saturation: > 92% On Room Air Discharge Sedation Level of Care: Fast Track Phase II Post Sedation Plan On clinical assessment, the patient appears to have tolerated the sedation without complications. Patient is recovering as anticipated. Patient will continue to be monitored by nursing and may be discharged when sedation discharge criteria are met per below protocol. Upon Completions of procedure up to 15 minutes continue every 5 minute vital signs and the P.A.R. score; then discharge to a Phase I or Fast Track to Phase II per the following guidelines: * Discharge Patient to appropriate Phase II area if PAR is 8 or greater or return to pre- procedure baseline. The post - procedure orders will be as directed. * If PAR score is less than 8 or not return to pre-procedure baseline then patient will follow Phase I monitoring till PAR is reached for Phase II. The Phase I may be done in procedure room or may call to secure a Phase I area. * If naloxone or flumazenil are used for reversal, hold in Phase I for continued monitoring from when last reversal dose was given for a minimum of 60 minutes or longer pending the nurse and/or physician discretion of patient condition before discharge to Phase II. Please call the Sedation Physician to re-evaluate and complete post-note for discharge to Phase II area. Do NOT discharge from procedure sedation or Phase 1 until post- sedation evaluation note is complete by procedure /sedation MD Sedation Discharge Instructions to be given to the patient at discharge to home. [facility] [place] Codes (Charges) Indication for Procedure Indication for procedure: CP sob abnormal stress test Sedation/Anesthesia Procedure 1: Sedation/Anesthesia: 25187 Mod Sedation by the same physician;Init15 Min Child Age 5 & Up (initial 15 min, start 1017, end 1031) Total Sedation Time (minutes): 14
--- NOTE | 2024-10-02 12:38 | XCELERA ---
[id number]
[2024-10-02 16:09] VITALS: BP 119/67; PULSE 67; RESP 18; TEMP 98.2; O2SAT 93
--- NOTE | 2024-10-02 16:39 | Communication Note ---
By CMS guidelines, a determination that the admission or continued stay is not medically necessary has been made by a member of the UR committee and a physician for this hospital stay, therefore a Code 44 will be completed and the Inpatient admission will be changed to outpatient. Date of Service: October 02, 2024
--- NOTE | 2024-10-02 16:50 | Discharge Summary ---
Date of Service October 02, 2024 Admission HPI Per Admitting Provider 64-year-old female with past medical history significant for type 2 diabetes, hypothyroidism, metabolic syndrome, morbid obesity, hyperlipidemia, hiatal hernia, hypertension, internal carotid aneurysm, asymptomatic stenosis of right vertebral artery, GERD, depression, general anxiety disorder comes in because of chest pain. Patient recently had dobutamine stress echo which demonstrated mild global hypokinesis at peak stress but was negative for dobutamine ECG for ischemia. And daily aspirin was recommended. Patient states she is having on and off chest pain for some time. But today the pain was more constant and thus reason she came to the ER. Pain is in the middle of the chest. Also has some abdominal discomfort. Feeling bloating. Some nausea. Has some shortness of breath on exertion. No fevers. No cough. Currently no headache. No runny nose or sore throat. She has alternating diarrhea and constipation. No blood in the stools. Micturating okay. Currently hemodynamics are okay. Past medical history. As mentioned above Past surgical history. Bilateral carotid artery catheter placement. Bilateral carpal tunnel surgery. . Colonoscopy with biopsy. Dilatation curettage. EGD. EGD with biopsy. Laparoscopic appendectomy. Tonsillectomy and adenoidectomy trigger finger release. Social social history. . No smoking. No alcohol use. No drug use. Family history. Brother has asthma. Father had LA. Hypertension. Mother had hypertension. Maternal grandmother had stomach cancer. Maternal grandfather had mastoid cancer. Admission Exam Per Admitting Provider General- Not in acute distress Head- atraumatic Eyes- PERRL. ENT- oropharynx clear Neck- supple, no JVD. Lungs- clear to auscultation no wheezing or crackles. Heart- regular rate and rhythm; no murmur, no gallop. Abdomen- normal bowel sounds, soft, mild epigastric tenderness, no distension. Extremities- trace pretibial edema, no erythema seen Neuro- alert, oriented PERRL, no facial palsy; no dysarthria; moves extremities Principal Diagnosis Chest pain possibly secondary to GERD (acid reflux) Discharge Exam General- morbidly obese F, in NAD, pleasant Head- atraumatic Eyes- PERRL.EOMI Neck- supple, no JVD. Lungs- clear to auscultation no wheezing Heart- regular rate and rhythm; no murmur Abdomen- normal bowel sounds, soft, obese, tenderness resolved Extremities- trace pretibial edema, no erythema seen Neuro- alert, oriented PERRL, no facial palsy; no dysarthria; moves extremities Discharge Data Allergies Allergy/AdvReac Type Severity Reaction Status Date / Time cat dander Allergy Severe watery, Verified 09/30/24 19:58 itchy eyes, congestion, trouble breathing magnesium sulfate Allergy Severe Difficulty Verified 09/30/24 19:58 breathing, hives, hallucinations morphine Allergy Severe disoriented, Verified 09/30/24 19:58 decreased breathing Sulfa (Sulfonamide Allergy Intermediate Hives Verified 09/30/24 19:58 Antibiotics) mold Allergy Mild watery, Verified 09/30/24 19:58 itchy eyes tomato Allergy Mild hands/feet Verified 09/30/24 19:58 itch orange Allergy Unknown food Verified 09/30/24 19:58 sensitivity shrimp Allergy Unknown food Verified 09/30/24 19:58 sensitivity (per allergy testing) semaglutide [From Ozempic] AdvReac Severe abdominal Verified 09/30/24 19:58 pain, n/v, abdominal bloating empagliflozin AdvReac Intermediate yeast Verified 09/30/24 19:58 [From Jardiance] infection, emotional Consultations 09/30/24 22:51 ED Decision to Admit Stat 10/01/24 08:00 Consult Cardiology Routine Procedures Performed Operation Date: 10/02/24 09:30 Actual Procedures p Cineradiography w/Routine Exam - Jake Burton MD, PhD p Cath, Coronaries ONLY (no LV) - Jake Burton MD, PhD Ordered Studies 10/01/24 03:05 US gallbladder Routine FINDINGS: Liver: Liver size: Increased echogenicity measuring up to 21 cm in length, mild interval regression. No hepatic mass identified. No evidence of focal lesions, cysts, or masses. Hepatic vasculature appears normal. Gallbladder: Gallbladder size:.The gallbladder is visualized and appears normal in size and shape. No gallstones, wall thickening 1.6 mm, or pericholecystic fluid noted. No evidence of gallbladder wall edema or signs of acute cholecystitis. Biliary Tree: Common bile duct diameter: Common bile duct is within normal limits in caliber and not dilated measuring 3.8 mm. No evidence of choledocholithiasis or biliary obstruction. Right Kidney: Right kidney size: Right kidney appears normal in size with preserved corticomedullary differentiation measuirng 12.08 cm. No evidence of hydronephrosis, renal cysts, or masses. IMPRESSION: 1. Hepatomegaly with hepatic steatosis, mild interval regression. 2. Unremarkable gallbladder. 3. No other changes since the last study. RECOMMENDATIONS: Clinical correlation with symptoms. 10/01/24 10:34 CT abd pelvis wo con Urgent FINDINGS: Limitations: None. Lung bases: No abnormality noted. Pleural space: No visualized pleural effusion or pneumothorax. Heart: No abnormality noted. Mediastinum: No abnormality noted. ABDOMEN: Liver: Lack of intravenous contrast limits detection of some masses. No abnormality noted. Gallbladder and bile ducts: No calcified stones or surrounding fluid. No ductal dilation. Pancreas: No pancreatic mass, calcification, inflammation or ductal dilation noted. Spleen: No significant abnormality noted. Adrenals: No significant abnormality noted. Kidneys and ureters: Stable mild bilateral renal cortical scarring. No stones or hydronephrosis. Stomach and bowel: No distension or mucosal thickening. No inflammation noted. PELVIS: Appendix: Probable appendectomy. Bladder: Appears normal for the degree of filling. No stones or inflammation. No large mass. Masses may not be detected in the absence of opacification. Reproductive: No abnormalities noted. ABDOMEN and PELVIS: Intraperitoneal space: No free air. No significant fluid collection. Bones/joints: Degenerative changes noted throughout the spine. No acute osseous abnormality seen. Soft tissues: No significant abnormality noted. Vasculature: Atherosclerotic calcification of the aorta and branches. No aneurysm. Lymph nodes: Stable shotty nonenlarged likely reactive jacqueline hepatis lymph nodes. No pathologically enlarged nodes. IMPRESSION: No significant abnormality noted. No interval change. 10/02/24 06:36 CL Cath Imgs for PACS use only Routine CL Cath Imgs for PACS use only Stat Hospital Course (1) Chest pain: 64-year-old female with past medical history significant for type 2 diabetes, hypothyroidism, metabolic syndrome, morbid obesity, hyperlipidemia, hiatal hernia, hypertension, internal carotid aneurysm, asymptomatic stenosis of right vertebral artery, GERD, depression, general anxiety disorder comes in because of chest pain. Patient recently had dobutamine stress echo which demonstrated mild global hypokinesis at peak stress but was negative for dobutamine ECG for ischemia. And daily aspirin was recommended. Patient states she is having on and off chest pain for some time. But today the pain was more constant and thus reason she came to the ER. Pain is in the middle of the chest. Also has some abdominal discomfort. Feeling bloating. Some nausea. Has some shortness of breath on exertion. No fevers. No cough. Currently no headache. No runny nose or sore throat. She has alternating diarrhea and constipation. No blood in the stools. Micturating okay. Currently hemodynamics are okay. Chest pain Recent dobutamine stress echo showed mild global hypokinesis at peak stress. Negative dobutamine ECG for ischemia. And aspirin was recommended Initial troponin and EKG okay Will follow serial enzymes and repeat EKG D-dimer 410 Monitor on telemetry Cardiology consulted - pt underwent cardiac cath - no intervention required Epigastric tenderness Bloating LFTs okay Continue home Pepcid IV Protonix Gallbladder ultrasound - 1. Hepatomegaly with hepatic steatosis, mild interval regression. 2. Unremarkable gallbladder. 3. No other changes since the last study. CT abdomen - No significant abnormality noted. No interval change. Type 2 diabetes Hold home p.o. medications Sliding scale Current HbA1c 6.5% Hypothyroidism On Synthyroid Morbid obesity Counseling Patient says has plan for sleep study Hypertension On hydrochlorothiazide, lisinopril cont. to monitor History of left internal carotid saccular aneurysm measuring 3 mm X 3 mm Follows with [facility] neurosurgery Total Time Total Time Spent Total Time Spent (In Minutes): 40 Discharge Plan Discharge Items Patient Disposition: Home - Self-Care Reason For Visit: CHEST PAIN Discharge Diagnosis: Chest pain possibly secondary to GERD (acid reflux) Activity: Per Instructions section Non-emergency contact: Primary Care Provider Call non-emergency contact if: you have any medication questions and your symptoms worsen Follow-up/Referrals: Zoey Campbell CRNP [Primary Care Provider] - Diet: Heart Healthy Addtl Attending Provider Instructions: Follow up with your primary care doctor within 1 week. Start taking pantoprazole, as prescribed. Recommend to discuss options for weight loss with your primary care physician and possible dietitian referral. Make sure to stay well hydrated. Pending Studies at Discharge: No Stand-Alone Forms: My [employer], Smoking Cessation Medications and DC Order Prescriptions: New pantoprazole 40 mg tablet,delayed release (DR/EC) 40 mg PO DAILY Qty: 30 0RF Continued (DME) lancets [OneTouch UltraSoft 2 Lancet] 30 gauge misc See Rx Instructions .Route Qty: 100 0RF Rx Instructions: Test once daily (DME) blood-glucose meter [Contour Next Meter] Misc See Rx Instructions .Route Rx Instructions: As directed (DME) Contour Next Test Strips Strip See Rx Instructions .Route Qty: 100 1RF Rx Instructions: TEST ONCE DAILY; DX CODE-E11.9 lisinopril 40 mg Tablet 40 mg PO QAM ergocalciferol (vitamin D2) [Vitamin D2] 1,250 mcg (50,000 unit) capsule 1,250 mcg PO WK Rx Instructions: MONDAYS hydrochlorothiazide 12.5 mg Tablet 12.5 mg PO QAM fluticasone propionate [Flonase Allergy Relief] 50 mcg/actuation [place],Suspension 1 spray INTRANASAL DAILY PRN (Reason: Congestion) Rx Instructions: administer into each nostril levothyroxine [Synthroid] 175 mcg tablet 175 mcg PO QAM famotidine 20 mg tablet 20 mg PO BID metformin 500 mg tablet extended release 24 hr 500 mg PO QAM meclizine 25 mg tablet 12.5 - 25 mg PO BID PRN (Reason: Dizziness Or Vertigo) Discharge Orders: Discharge Order (Routine); Ordered 10/02/24 Ordered By: Jl Bhagat/Other Patient Handouts: Managing Type 2 Diabetes Admission Data Admit Date/Time: 10/01/24 00:41 Attending Provider: Jl Pisano Admit Provider: Jose Winslow Primary Care Provider: Zoey Campbell Other Providers: Jose Winslow; Leonidas Peck; Julito Elias; Jose Montana; Jake Burton; Kan Vasquez; Jevon Bansal Jr; Kwaku Ramirez; Flori Alaniz; Mayelin Villalba; John Ahn; John Hernández; Margaret Donaldson; Tani Connelly; Eliane Leblanc; Tani Saenz; Kenrick Grace; Khalif Robin
--- NOTE | 2024-10-04 18:40 | Cardiac Catheterization ---
[facility] Data: Director Of Guidance Cardiac Status Clinical evaluation leading to the procedure CAD Presenation: Positive Stress Test and Stable angina Anginal Classification: CCS III Heart Failure: No Cardiogenic Shock within 24 Hours: No Cardiac Arrest within 24 Hours: No Imaging Studies Past 6 Months: Yes Stress Studies Past 6 Months: Yes Stress Echocardiogram: Yes - Positive Coronary Anatomy Dominant: Left Left Main (% Stenosis): Normal LAD (% Stenosis): Normal D1 (% Stenosis): Normal D2 (% Stenosis): Normal Circumflex (% Stenosis): Normal OM1 (% Stenosis): Normal OM2 (% Stenosis): Normal OM3 (% Stenosis): Normal L PL1 (% Stenosis): Normal L PL2 (% Stenosis): Normal L PDA (% Stenosis): Normal RCA (% Stenosis): Normal Diagnostic Physicians Name: Jake Burton MD, PhD Closure Device Percutaneous Entry Location: Radial Closure Device: Radial Band Recommendations: Medical Therapy and/or Counseling Cardiac Cath Procedure Full Procedure Date October 02, 2024 Pre-Procedure Diagnosis Pre-Procedure Diagnosis: Angina and Positive Stress Test AUC Score AUC Score: 07 Post-Procedure Diagnosis Post-Procedure Diagnosis: Normal Coronary Arteries Procedure(s) Performed Procedure(s) Performed: Coronary Angiography Abrasive Mixer Helper Jake Burton MD, PhD Estimated Blood Loss Estimated Blood Loss: 5 cc Medication(s) Medication(s): Diphenhydramine, Heparin, Hydralazine, Lidocaine 1%, Nicardipine, Nitroglycerin and Versed Summary of Findings Brief description: Patient was brought to the cardiac catheterization suite where she was shaved and prepped in a sterile fashion. Sedated using IV Versed and fentanyl. Soft tissue the right wrist were anesthetized using 2 mL of 1% Xylocaine. The right radial artery was accessed with a modified Seldinger technique and a 6 Singaporean radial artery glide sheath was placed. Patient was provided anticoagulation with IV heparin and antispasmodics including nicardipine and nitroglycerin. All catheters were advanced and exchanged over a 0.035 J-tip wire. Left coronary angiography was performed in orthogonal views with a 5 [place]an [place] 4 diagnostic catheter. Right coronary angiography was performed in orthogonal views with a 5 Singaporean JR4 diagnostic catheter. Diagnostic catheters were removed. Radial artery sheath was removed. Hemostasis was obtained using a TR band. Patient remained hemodynamically stable and asymptomatic. She was returned to the recovery area in stable condition. This ended the case. Coronary angiography findings: [id number] vessel bifurcating into LAD and circumflex. No disease. [id number] and transapical. Gives a large septal branch followed by a large branching first diagonal and then a smaller caliber second diagonal. No angiographically evident disease in the LAD or its branches. LCx-this is large caliber and dominant. Travels in the AV groove giving a small to medium caliber OM1 followed by a large branching OM 2 and a small caliber OM 3. There are then 2 posterolateral branches before the vessel terminates in a large PDA. There is no angiographically evident disease in the circumflex or its branches. RCA-medium caliber and nondominant. No angiographically evident disease. Summary: 1. Normal epicardial coronary arteries. False positive stress test. 2. Continue guideline directed medical therapy for primary prevention of coronary disease including; abstinence from tobacco, regular cardiovascular exercise, cardiac prudent diet, and treatment of comorbid disease to clinical targets. Hemodynamics Rest Ao:: 105/65 mmHg Final Ao: 105/55 mmHg LV: Not performed Recommendations Recommendations: Medical Therapy and/or Counseling Radiation Exposure (mGy) 965 mGy, fluoroscopy time 2.7 minutes Contrast (mls) 70 cc Anesthesia 1 mg Versed, 50 mg Benadryl IV. Start time 1017, and 1031 Procedural Complication(s) None Disposition Director Of Guidance Holding/Recovery I attest to the content of the Intraoperative Record and any orders documented therein. Any exceptions are noted below. [facility] Card Cath Procedure Codes Cardiac Catheterization Procedure 1: Cardiovascular Cath Procedures: 99224 Coronaries Moderate Sedation Procedure 1: Sedation/Anesthesia: 66574 Mod Sedation by the same physician;Init15 Min Child Age 5 & Up (Start time 1017, end time 1031) PG Care Time/CCT Total # of Minutes Spent Total Time Spent with Patient: Total time spent is greater than 50% in coordination of care (as documented) at patient's floor/unit and/or counseling patient:
--- NOTE | 2024-10-05 08:43 | Electrocardiogram Report ---
Test Reason : Blood Pressure : */* mmHG Vent. Rate : 77 BPM Atrial Rate : 77 BPM P-R Int : 176 ms QRS Dur : 76 ms QT Int : 364 ms P-R-T Axes : 47 26 52 degrees QTcB Int : 411 ms Normal sinus rhythm Low voltage QRS Borderline ECG When compared with ECG of 30-Sep-2024 19:29, No significant change was found Confirmed by Jake Burton ([id number]) on 10/05/2024 8:43:39 AM Referred By: REFERRED SELF Confirmed By: Jake Burton
--- NOTE | 2024-10-05 08:53 | Electrocardiogram Report ---
Test Reason : Blood Pressure : */* mmHG Vent. Rate : 65 BPM Atrial Rate : 65 BPM P-R Int : 180 ms QRS Dur : 70 ms QT Int : 404 ms P-R-T Axes : 31 9 29 degrees QTcB Int : 420 ms Normal sinus rhythm Low voltage QRS Cannot rule out Inferior infarct , age undetermined Abnormal ECG When compared with ECG of 01-Oct-2024 18:10, (unconfirmed) No significant change was found Confirmed by Jake Burton ([id number]) on 10/05/2024 8:53:23 AM Referred By: REFERRED SELF Confirmed By: Jake Burton
== END 2024-10-02 17:43 | disposition home or self-care (01) | DRG 287 ==
LOC: ED 19:15 → 4W 10-01 00:41 → INTOOBSV 10-01 00:41 → 4W 10-01 02:59
PROC: CLB.CCO (2024-10-02 09:30)